=== PATIENT | male | born 1965 | race Caucasian/White ===

== ENCOUNTER 2018-10-08 18:39 | Inpatient (IN) | payer OTHER ==
[2018-10-08] MEDS ORDERED: SODIUM CHLORIDE 0.9% 1,000 ML IV STA (18:53)
[2018-10-08] MEDS ORDERED: HEPARIN SODIUM,PORCINE 10,000 UNIT/ML 1 ML VIAL IV ONE (18:54)
[2018-10-08] MEDS ORDERED: HEPARIN SODIUM,PORCINE 5,000 UNIT/ML 1 ML VIAL IV PRN (18:54)
[2018-10-08 19:05] LABS: Basophils # (A) 0.1 k/uL (0-0.2); Basophils % (A) 1 %; Eosinophils # (A) 0.6 k/uL (0-0.7); Eosinophils % (A) 5 %; HCT 43.4 % (39.0-53.0); Lymphocytes % (A) 25 %; MCH 31.7 pg (25.0-35.0); MCHC 34.5 g/dL (31.0-37.0); MCV 91.7 fL (80.0-100.0); Mean Platelet Volume 7.3; Monocytes # (A) 0.9 k/uL (0-1.0); Monocytes % (A) 8 %; Neutrophils % (A) 59 %; Platelet Count 242 k/uL (150-450); RBC 4.74 m/uL (4.30-5.90); RDW 12.4 % (11.5-15.5)
--- NOTE | 2018-10-08 19:07 | ED ---
General Adult HPI - General Chief complaint: Chest Pain Stated complaint: stemi Time Seen by Provider: 10/08/18 18:41 Source: patient Mode of arrival: EMS Limitations: no limitations - History of Present Illness Initial comments: Dictation was produced using [email or web address] dictation software. please excuse any grammatical, word or spelling errors. Chief Complaint: 53-year-old male presents with episode of syncope. History of Present Illness: Patient's 53-year-old male. He experienced an episode of syncope. Over the last week patient had had chest pain. He took Vicodin to manage his chest pain. Patient states he notices he injures himself at work frequently. Reports that today he was working. 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 He had gone back to the house and felt slightly dizzy then syncopized. EMS was called patient was transferred to the emergency department. EMS reports that he had low blood pressure 54/30 initially. He did improve while en route. Patient has any history of medical problems. Currently he feels except limits. EMS for multiple EKGs showing diffuse ST depressions. Patient reports he had 3 beers yesterday after not drinking for approximately one year The ROS documented in this emergency department record has been reviewed and confirmed by me. Those systems with pertinent positive or negative responses have been documented in the HPI. All other systems are other negative and/or noncontributory. PHYSICAL EXAM: General Impression: Alert and oriented x3, not in acute distress HEENT: Normocephalic atraumatic, extra-ocular movements intact, pupils equal and reactive to light bilaterally, dry mucous membranes, pale Cardiovascular: Heart regular rate and rhythm, S1&S2 audible, no murmurs, rubs or gallops Chest: Lungs clear to auscultation bilaterally, no rhonchi, no wheeze, no rales Abdomen: Bowel sounds present, abdomen soft, non-tender, non-distended, no organomegaly Musculoskeletal: Pulses present and equal in all extremities, no peripheral edema Motor: Power 5/5 bilaterally, no focal deficits noted Neurological: CN II-XII grossly intact, no focal motor or sensory deficits noted Skin: Intact with no visualized rashes Psych: Normal affect and mood ED course: 53-year-old male presents with episode of syncope after approximately 1 chest pain. Vital signs upon arrival shows blood pressure 94/84 , pulse vital signs within acceptable limits. Laboratory evaluation obtained. Leukocytosis of 12.0. Coag panel unremarkable. D-dimer is negative. Metabolic panel is unremarkable. Cardiac enzymes are negative. Chest x-ray is negative for an acute processes. Patient started on heparin. Patient reevaluated no changes in his symptoms. Patient given 1 dose of aspirin. Patient symptoms likely secondary to vasovagal syncope however given abnormal EKG, and onset A. fib and ST depressions there is concern of significant cardiac disease. Patient given intravenous fluids. Patient be admitted EKG interpretation: Ventricular rate 89, H or fibrillation, QRS 88, QTc 469. No IN prolongation, no QTC prolongation, ST segment depressions in the lateral precordial leads and aVL - Related Data Home Medications Medication Instructions Recorded Confirmed No Known Home Medications 10/08/18 10/08/18 Allergies Allergy/AdvReac Type Severity Reaction Status Date / Time No Known Allergies Allergy Unverified 10/08/18 19:00 Review of Systems ROS Statement: Those systems with pertinent positive or pertinent negative responses have been documented in the HPI. ROS Other: All systems not noted in ROS Statement are negative. 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 ] Respiratory 18 16 Rate Blood Pressure 94/84 108/81 O2 Sat by Pulse 98 Oximetry Medical Decision Making - Lab Data Result diagrams: 10/08/18 18:43 10/08/18 18:43 Lab Results 10/08/18 10/08/18 10/08/18 Range/Units 18:43 18:43 18:43 WBC 12.0 H (3.8-10.6) k/uL RBC 4.74 (4.30-5.90) m/uL Hgb 15.0 (13.0-17.5) gm/dL Hct 43.4 (39.0-53.0) % MCV 91.7 (80.0-100.0) fL MCH 31.7 (25.0-35.0) pg MCHC 34.5 (31.0-37.0) g/dL RDW 12.4 (11.5-15.5) % Plt Count 242 (150-450) k/uL Neutrophils % 59 % Lymphocytes % 25 % Monocytes % 8 % Eosinophils % 5 % Basophils % 1 % Neutrophils # 7.0 (1.3-7.7) k/uL Lymphocytes # 3.0 (1.0-4.8) k/uL Monocytes # 0.9 (0-1.0) k/uL Eosinophils # 0.6 (0-0.7) k/uL Basophils # 0.1 (0-0.2) k/uL PT (9.0-12.0) sec INR (<1.2) APTT (22.0-30.0) sec D-Dimer (<0.60) mg/L FEU Sodium 139 (137-145) mmol/L Potassium 4.5 (3.5-5.1) mmol/L Chloride 106 (98-107) mmol/L Carbon Dioxide 24 (22-30) mmol/L Anion Gap 9 mmol/L BUN 20 (9-20) mg/dL Creatinine 1.23 (0.66-1.25) mg/dL Est GFR (CKD-EPI)AfAm 77 (>60 ml/min/1.73 sqM) Est GFR (CKD-EPI)NonAf 67 (>60 ml/min/1.73 sqM) Glucose 133 H (74-99) mg/dL Calcium 8.7 (8.4-10.2) mg/dL Magnesium 1.7 (1.6-2.3) mg/dL Total Bilirubin 0.6 (0.2-1.3) mg/dL AST 24 (17-59) U/L ALT 33 (21-72) U/L Alkaline Phosphatase 84 (38-126) U/L Total Creatine Kinase 61 (55-170) U/L CK-MB (CK-2) 0.9 (0.0-2.4) ng/mL CK-MB (CK-2) Rel Index 1.5 Troponin I <0.012 (0.000-0.034) ng/mL Total Protein 6.2 L (6.3-8.2) g/dL Albumin 3.5 (3.5-5.0) g/dL TSH 2.170 (0.465-4.680) mIU/L 10/08/18 Range/Units 18:43 WBC (3.8-10.6) k/uL RBC (4.30-5.90) m/uL Hgb (13.0-17.5) gm/dL Hct (39.0-53.0) % MCV (80.0-100.0) fL MCH (25.0-35.0) pg MCHC (31.0-37.0) g/dL RDW (11.5-15.5) % Plt Count (150-450) k/uL Neutrophils % % Lymphocytes % % Monocytes % % Eosinophils % % Basophils % % Neutrophils # (1.3-7.7) k/uL Lymphocytes # (1.0-4.8) k/uL Monocytes # (0-1.0) k/uL Eosinophils # (0-0.7) k/uL Basophils # (0-0.2) k/uL PT 10.1 (9.0-12.0) sec INR 0.9 (<1.2) APTT 24.4 (22.0-30.0) sec D-Dimer 0.34 (<0.60) mg/L FEU Sodium (137-145) mmol/L Potassium (3.5-5.1) mmol/L Chloride (98-107) mmol/L Carbon Dioxide (22-30) mmol/L Anion Gap mmol/L BUN (9-20) mg/dL Creatinine (0.66-1.25) mg/dL Est GFR (CKD-EPI)AfAm (>60 ml/min/1.73 sqM) Est GFR (CKD-EPI)NonAf (>60 ml/min/1.73 sqM) Glucose (74-99) mg/dL Calcium (8.4-10.2) mg/dL Magnesium (1.6-2.3) mg/dL Total Bilirubin (0.2-1.3) mg/dL AST (17-59) U/L ALT (21-72) U/L Alkaline Phosphatase (38-126) U/L Total Creatine Kinase (55-170) U/L CK-MB (CK-2) (0.0-2.4) ng/mL CK-MB (CK-2) Rel Index Troponin I (0.000-0.034) ng/mL Total Protein (6.3-8.2) g/dL Albumin (3.5-5.0) g/dL TSH (0.465-4.680) mIU/L Disposition Clinical Impression: Syncope, EKG abnormalities Disposition: ADMITTED IP TO THIS [facility] Condition: Fair Referrals: None,Stated [Primary Care Provider] - 1-2 days Decision Time: 20:15
[2018-10-08 19:20] LABS: Albumin 3.5 g/dL (3.5-5.0); Calcium 8.7 mg/dL (8.4-10.2); Magnesium 1.7 mg/dL (1.6-2.3); Potassium 4.5 mmol/L (3.5-5.1); Total Bilirubin 0.6 mg/dL (0.2-1.3); Total Protein 6.2 g/dL (6.3-8.2)
[2018-10-08 19:22] LABS: D-Dimer 0.34 mg/L FEU (<0.60); INR 0.9 (<1.2); Partial Thromboplastin Time 24.4 sec (22.0-30.0); Prothrombin Time 10.1 sec (9.0-12.0)
[2018-10-08 19:25] LABS: Creatine Kinase 61 U/L (55-170)
[2018-10-08] MEDS: HEPARIN SOD,PORK IN 0.45% NACL 25,000 UNIT in 0.45% NACL 1 250ML.BAG IV SCH (19:34)
[2018-10-08 19:37] LABS: Creatine Kinase MB 0.9 ng/mL (0.0-2.4); Troponin I <0.012 ng/mL (0.000-0.034)
--- NOTE | 2018-10-08 19:44 | XR ---
EXAMINATION TYPE: XR chest 2V DATE OF EXAM: 10/08/2018 COMPARISON: NONE HISTORY: Chest pain TECHNIQUE: Frontal and lateral views of the chest are obtained. FINDINGS: There is no heart failure nor confluent pneumonic infiltrate. Costophrenic angles are tiburcio r. Heart size is normal. There are chest leads. There is slight 20% anterior wedging of a midthoracic vertebra. There is slight coarsening of the lung markings. IMPRESSION: Slight coarsening of the lung markings could relate to mild fibrosis. Normal heart.
[2018-10-08] MEDS ORDERED: ASPIRIN 81 MG PO STA (20:03)
[2018-10-08] MEDS ORDERED: ONDANSETRON 4 MG/2 ML VIAL IVP PRN (20:06)
[2018-10-08] MEDS ORDERED: ACETAMINOPHEN TAB 325 MG TAB PO PRN (20:06)
[2018-10-08] MEDS ORDERED: NALOXONE 0.4 MG/ML 1 ML VIAL IV PRN (20:06)
[2018-10-08 21:40] VITALS: BMI 25.1
--- NOTE | 2018-10-08 22:23 | P.HPIM ---
History of Present Illness H&P Date: 10/08/18 The patient is a 53-year-old male with no known PMH who presented to the ED for shortness of breath, chest pain, and syncope. The patient notes that over the past few weeks to months, he has noticed gradually worsening shortness of breath and decreased exercise tolerance. Earlier today, he was changing the tire on his car when he began feeling lightheaded and became diaphoretic and short of breath. He struggled to make it back into his house where he then collapsed on the floor, witnessed by his girlfriend, downtime of roughly 30 seconds. The girlfriend at the bedside denied noticing any abnormal shaking movements, or urinary or bowel incontinence. EMS was activated, and the patient had a BP of 54/30 which improved to 94/84 upon arrival to the ED. Patient notes that his symptoms gradually improved upon arrival to the ED and at time of the interview the patient felt that he was almost back to his baseline. He also endorsed having episodes of noticeable tachycardia which would spontaneously resolve over the past few months. He denied chest pain, fever, chills, lower extremity edema, or calf pain. He also denied weakness, numbness , tingling. The patient has not seen a physician in over 30 years and thereby has no known past medical history. In the emergency room, the patient's vitals were BP 108/81, pulse 92, respirations 16, SpO2 98% on 2 L via nasal cannula. The patient underwent a comprehensive workup with EKG showing atrial fibrillation at [address] depressions and T-wave inversion in leads V4 to V6. WBC count was 12, with troponin less than 0.012, creatinine 1.23, and chest x-ray showing mild fibrosis. Review of Systems Pertinent positives and negatives as discussed in HPI, a complete review of systems was performed and all other systems are negative. Past Medical History Additional Past Medical History / Comment(s): chronic back and neck pain History of Any Multi-Drug Resistant Organisms: None Reported Additional Past Surgical History / Comment(s): cosmetic surg Smoking Status: Current some day smoker Past Alcohol Use History: Occasional Past Drug Use History: None Reported - Past Family History Father Family Medical History: Congestive Heart Failure (CHF) Additional Family Medical History / Comment(s): HF FATHER STILL ALIVE Mother Family Medical History: COPD Medications and Allergies Home Medications Medication Instructions Recorded Confirmed Type No Known Home Medications 10/08/18 10/08/18 History Allergies Allergy/AdvReac Type Severity Reaction Status Date / Time No Known Allergies Allergy Unverified 10/08/18 19:00 Physical Exam Vitals: Vital Signs Pulse Pulse Resp BP Pulse Ox 10/08/18 20:25 75 16 116/71 99 10/08/18 19:39 92 16 108/81 98 10/08/18 18:57 80 10/08/18 18:40 89 18 94/84 Intake and Output 10/08/18 10/08/18 10/08/18 06:59 14:59 22:59 Other: Weight 62.142 kg General: non toxic, no distress, appears at stated age, normal weight Derm: no unusual rashes/lesions no unusual ecchymoses, warm, dry Head: atraumatic, normocephalic, symmetric Eyes: EOMI, no lid lag, anicteric sclera, pupils equal round reactive to light ENT: Nose and ears atraumatic, no thrush, no pharyngeal erythema, no tongue bites Neck: No thyromegaly, no cervical lymphadenopathy, trachea midline, supple Mouth: no lip lesion, mucus membranes moist Cardiovascular: S1S2 reg, grade 4 holosystolic murmur appreciated, positive posterior tibial pulse bilateral, no edema, capillary refill less than 2 seconds Lungs: Mild bibasilar rales, no rhonchi, no accessory muscle use Abdominal: soft, nontender to palpation, no guarding, no appreciable organomegaly, normal bowel sounds Ext: no gross muscle atrophy, muscle strength 5 out of 5 in all 4 extremities grossly, no contractures, Neuro: CN II-XI grossly intact, light touch intact all 4 extremities, finger to nose within normal limits, Psych: Alert, oriented, appropriate affect Results CBC & Chem 7: 10/08/18 18:43 10/08/18 18:43 Labs: Abnormal Lab Results - Last 24 Hours (Table) 10/08/18 10/08/18 Range/Units 18:43 18:43 WBC 12.0 H (3.8-10.6) k/uL Glucose 133 H (74-99) mg/dL Total Protein 6.2 L (6.3-8.2) g/dL Assessment and Plan Plan: Syncope, in setting of newly diagnosed A. fib, Abnormal EKG, and holosystolic murmur -Possibly secondary to A. fib with RVR versus arrhythmia -Cardiac monitoring -Cardiology consult -Echocardiogram -Low suspicion for seizure -Heparin infusion -Check lipid panel and A1c -Fall, seizure, aspiration precautions -Continue with aspirin -Check TSH Kidney injury, unspecified -Monitor BMP Leukocytosis -Likely reactive -Monitor CBC DVT//GI prophylaxis -Heparin infusion -No indication for GI prophylaxis The patient is admitted with an anticipated greater than 2 midnight stay for evaluation of Afib CODE STATUS: Full Code Discussed with: Patient Anticipated discharge date: 10/10/[address]: Home A total of 60 minutes was spent on the care of this complex patient more than 50 % of the time was spent in counseling and care coordination.
[2018-10-09] MEDS: FAMOTIDINE 20 MG TAB PO SCH ×3 (00:13→22:41)
[2018-10-09] MEDS: SODIUM CHLORIDE 0.9% 1,000 ML IV SCH ×2 (00:14→08:48)
[2018-10-09 02:05] LABS: Creatine Kinase MB 7.6 ng/mL (0.0-2.4)
[2018-10-09 02:13] LABS: Troponin I 3.9 ng/mL (0.000-0.034)
[2018-10-09 04:23] LABS: HCT 40.9 % (39.0-53.0); HGB 14.1 gm/dL (13.0-17.5); MCHC 34.5 g/dL (31.0-37.0); MCV 92.7 fL (80.0-100.0); Mean Platelet Volume 6.9; Platelet Count 213 k/uL (150-450); RBC 4.41 m/uL (4.30-5.90); RDW 12.3 % (11.5-15.5); WBC 10.5 k/uL (3.8-10.6)
[2018-10-09 05:00] LABS: Anion Gap 3 mmol/L; Blood Urea Nitrogen 17 mg/dL (9-20); Calcium 8.5 mg/dL (8.4-10.2); Carbon Dioxide 22 mmol/L (22-30); Chloride 113 mmol/L (98-107); Cholesterol 127 mg/dL (<200); Glucose 94 mg/dL (74-99); HDL Cholesterol 32 mg/dL (40-60); LDL Cholesterol,Calculated 74 mg/dL (0-99); Potassium 4.2 mmol/L (3.5-5.1); Sodium 138 mmol/L (137-145); Triglycerides 103 mg/dL (<150)
[2018-10-09 07:23] LABS: Creatine Kinase MB 10.1 ng/mL (0.0-2.4)
[2018-10-09 07:25] LABS: Troponin I 1.86 ng/mL (0.000-0.034)
[2018-10-09] MEDS: ASPIRIN 325 MG TAB PO SCH (08:48)
--- NOTE | 2018-10-09 12:20 | P.CRDCN ---
History of Present Illness Consult date: 10/09/18 Requesting physician: Charlotte Martinez Consult reason: sycope Chief complaint: Syncope History of present illness: This is a pleasant 53-year-old gentleman with no prior documented history of hypertension, no diabetes, no hyperlipidemia, positive nicotine dependence, rare EtOH, no significant family history of premature coronary artery disease. 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 He denies any chest pressure or chest discomfort. He does feel that his exercise tolerance has decreased recently. Patient was outside to try to fix a tire on his car, he states he became lightheaded and somewhat diaphoretic. He did have some mild difficulty in breathing. He struggled to make it back into the house, where he ultimately walked into the house and collapsed on the floor. According to the girlfriend he was down for approximately 30 seconds. He did not lose bowel or bladder function. Upon wakening, he was quite diaphoretic and clammy. He did know where he was when he awoke. On EMS arrival, patient had a blood pressure of 54/30 which improved to 94/80 on arrival to the emergency room. Chest x-ray on presentation here revealed slight coarsening of the lung markings which could relate to mild fibrosis. His initial EKG on presentation here showed a sinus arrhythmia with lateral T-wave inversion. Past Medical History Additional Past Medical History / Comment(s): chronic back and neck pain History of Any Multi-Drug Resistant Organisms: None Reported Additional Past Surgical History / Comment(s): cosmetic surg Past Anesthesia/Blood Transfusion Reactions: No Reported Reaction Smoking Status: Current some day smoker Past Alcohol Use History: Occasional Past Drug Use History: None Reported - Past Family History Father Family Medical History: Congestive Heart Failure (CHF) Additional Family Medical History / Comment(s): HF FATHER STILL ALIVE Mother Family Medical History: COPD Medications and Allergies Home Medications Medication Instructions Recorded Confirmed Type No Known Home Medications 10/08/18 10/08/18 History Allergies Allergy/AdvReac Type Severity Reaction Status Date / Time No Known Allergies Allergy Unverified 10/08/18 19:00 Physical Exam Vitals: Vital Signs Temp Pulse Pulse Resp BP BP Pulse Ox 10/09/18 11:30 97.7 F 64 16 117/71 97 10/09/18 07:52 97.6 F 65 16 105/62 98 10/09/18 04:31 98.0 F 67 18 100/60 95 10/09/18 04:24 67 18 10/09/18 00:00 97.8 F 60 18 94/51 94 L 10/08/18 23:47 98.0 F 83 18 106/66 95 10/08/18 21:15 98.0 F 83 18 106/66 95 10/08/18 20:25 75 16 116/71 99 10/08/18 19:39 92 16 108/81 98 10/08/18 18:57 80 10/08/18 18:40 89 18 94/84 Intake and Output 10/08/18 10/09/18 10/09/18 22:59 06:59 14:59 Intake Total 97.08 320 Output Total 175 500 Balance -77.92 -180 Intake: Intake, IV Titration 97.08 320 Amount Heparin Sod,Pork in 0.45% 97.08 NaCl 25,000 unit In 0.45 % NaCl 1 250ml.bag @ 18 UNITS/KG/HR 11.18 mls/hr IV .[id number] [facility] Rx#: [id number] Sodium Chloride 0.9% 1, 320 000 ml @ 80 mls/hr IV . [id number] [facility] Rx#:[id number] Output: Urine 175 500 Other: # Voids 1 1 1 # Bowel Movements 1 Weight 62.142 kg 64.2 kg PHYSICAL EXAMINATION: GENERAL: 53-year-old gentleman in no acute distress at the time of my examination HEENT: Head is atraumatic, normocephalic. Pupils equal, round. Sclera anicteric. Conjunctiva are clear. Mucous membranes of the mouth are moist. Neck is supple. There is no elevated jugular venous pressure. No carotid bruit is heard. HEART EXAMINATION: Heart S1 no S2 audible, systolic ejection murmur in the aortic area. CHEST EXAMINATION: Lungs reveal rales to bilateral bases. ABDOMEN: Soft, nontender. Bowel sounds are heard. No organomegaly noted. EXTREMITIES: 2+ peripheral pulses with no evidence of peripheral edema and no calf tenderness noted. NEUROLOGIC patient is awake, alert and oriented 3 . . Results 10/09/18 04:06 10/09/18 04:06 Cardiac Enzymes 10/08/18 10/08/18 10/09/18 Range/Units 18:43 18:43 00:13 AST 24 (17-59) U/L CK-MB (CK-2) 0.9 7.6 H (0.0-2.4) ng/mL Troponin I <0.012 3.900 H* (0.000-0.034) ng/mL 10/09/18 Range/Units 06:35 AST (17-59) U/L CK-MB (CK-2) 10.1 H (0.0-2.4) ng/mL Troponin I 1.860 H* (0.000-0.034) ng/mL Coagulation 10/08/18 10/09/18 Range/Units 18:43 04:06 PT 10.1 (9.0-12.0) sec APTT 24.4 63.5 H (22.0-30.0) sec Lipids 10/09/18 Range/Units 04:06 Triglycerides 103 (<150) mg/dL Cholesterol 127 (<200) mg/dL HDL Cholesterol 32 L (40-60) mg/dL CBC 10/08/18 10/09/18 Range/Units 18:43 04:06 WBC 12.0 H 10.5 (3.8-10.6) k/uL RBC 4.74 4.41 (4.30-5.90) m/uL Hgb 15.0 14.1 (13.0-17.5) gm/dL Hct 43.4 40.9 (39.0-53.0) % Plt Count 242 213 (150-450) k/uL Comprehensive Metabolic Panel 10/08/18 10/09/18 Range/Units 18:43 04:06 Sodium 139 138 (137-145) mmol/L Potassium 4.5 4.2 (3.5-5.1) mmol/L Chloride 106 113 H (98-107) mmol/L Carbon Dioxide 24 22 (22-30) mmol/L BUN 20 17 (9-20) mg/dL Creatinine 1.23 0.84 (0.66-1.25) mg/dL Glucose 133 H 94 (74-99) mg/dL Calcium 8.7 8.5 (8.4-10.2) mg/dL AST 24 (17-59) U/L ALT 33 (21-72) U/L Alkaline Phosphatase 84 (38-126) U/L Total Protein 6.2 L (6.3-8.2) g/dL Albumin 3.5 (3.5-5.0) g/dL Current Medications Generic Name Dose Route Start Last Admin Trade Name Freq PRN Reason Stop Dose Admin Acetaminophen 650 mg 10/08/18 20:06 Tylenol Tab PO Q6HR PRN Mild Pain or Fever > 100.5 Aspirin 325 mg 10/09/18 09:00 10/09/18 08:48 Aspirin PO 325 mg DAILY [facility] Administration Famotidine 20 mg 10/08/18 21:00 10/09/18 08:48 Pepcid PO 20 mg BID [facility]ICK Administration Heparin Sodium (Porcine) 0 unit 10/08/18 18:54 10/08/18 19:33 Heparin IV 4,971 unit PER PROTOCOL PRN Administration Low PTT Protocol Heparin Sodium/Sodium Chloride 250 mls @ 11.18 mls/hr 10/08/18 19:00 04:15 25,000 unit/ Sodium Chloride IV 17.99 units/kg/hr .[id number] [facility] 11.18 mls/hr Titration Protocol 18 UNITS/KG/HR Sodium Chloride 1,000 mls @ 80 mls/hr 10/08/18 20:15 10/09/18 08:48 Saline 0.9% IV 80 mls/hr .[id number] [facility] Administration Naloxone HCl 0.2 mg 10/08/18 20:06 Narcan IV Q2M PRN Opioid Reversal Ondansetron HCl 4 mg 10/08/18 20:06 Zofran IVP Q8HR PRN Nausea And Vomiting Intake and Output 10/08/18 10/09/18 10/09/18 22:59 06:59 14:59 Intake Total 97.08 320 Output Total 175 500 Balance -77.92 -180 Intake: Intake, IV Titration 97.08 320 Amount Heparin Sod,Pork in 0.45% 97.08 NaCl 25,000 unit In 0.45 % NaCl 1 250ml.bag @ 18 UNITS/KG/HR 11.18 mls/hr IV .[id number] [facility] Rx#: [id number] Sodium Chloride 0.9% 1, 320 000 ml @ 80 mls/hr IV . [id number] [facility] Rx#:[id number] Output: Urine 175 500 Other: # Voids 1 1 1 # Bowel Movements 1 Weight 62.142 kg 64.2 kg 10/09/18 04:06 10/09/18 04:06 EKG Interpretations (text) Initial EKG shows a sinus arrhythmia. Lateral T-wave inversion. Assessment and Plan Plan: Assessment and plan #1 syncope, rule out cardiac causes. Patient has a notable aortic systolic murmur, rule out severe aortic stenosis #2 abnormal troponins 012, 3.9, 1.8. Possible acute coronary syndrome, could be secondary to severe aortic stenosis. #3 no prior documented history of hypertension, no diabetes, no hyperlipidemia #4 nicotine dependence #5 symptoms of shortness of breath and dizziness. Plan We will obtain an echocardiogram with Doppler study to assess the LV function as well as a possible severe aortic stenosis.. We will also check a BNP level. Patient has been instructed that he may need to undergo cardiac catheterization to rule out underlying coronary artery disease. Further recommendations to follow. DNP note has been reviewed, I agree with a documented findings and plan of care. Patient was seen and examined.
[2018-10-09 13:31] LABS: Hemoglobin A1C 4.8 % (4.0-6.0)
--- NOTE | 2018-10-09 14:02 | ECHOF ---
Referral Reason:Syncope MEASUREMENTS -------- HEIGHT: 162.6 cm WEIGHT: 62.1 kg BP: 100/60 RVIDd: 2.9 cm (< 3.3) IVSd: 1.4 cm (0.6 - 1.1) LVIDd: 3.6 cm (3.9 - 5.3) LVPWd: 1.4 cm (0.6 - 1.1) IVSs: 1.6 cm LVIDs: 2.4 cm LVPWs: 1.6 cm LAESV Index (A-L): 27.00 ml/m Ao Diam: 2.2 cm (2.0 - 3.7) AV Cusp: 0.6 cm (1.5 - 2.6) LA Diam: 3.5 cm (2.7 - 3.8) MV E Franco: 1.14 m/s MV DecT: 211 ms MV A Franco: 0.52 m/s MV E/A Ratio: 2.17 AV maxP.22 mmHg AV meanP.95 mmHg AR PHT: 422 ms RAP: 5.00 mmHg RVSP: 25.53 mmHg MV EF SLOPE: 98.73 mm/s (70 - 150) MV EXCURSION: 1.46 cm (> 18.000) FINDINGS -------- Sinus rhythm. This was a technically good study. The left ventricular size is normal. There is moderate concentric left ventricular hypertrophy. O verall left ventricular systolic function is normal with, an EF between 55 - 60 %. The right ventricle is normal in size and function. Normal LA size by volume 22+/-6 ml/m2. The right atrium is normal in size. There is severe aortic valve sclerosis. There is moderate aortic regurgitation. There is severe a ortic stenosis present. Peak/mean gradient across the Aortic Valve is 105.22mmHg / 69.95mmHg. The mitral valve leaflets are mildly thickened. Mild mitral regurgitation is present. Trace tricuspid regurgitation present. Right ventricular systolic pressure is normal at < 35 mmHg. There is no evidence of pulmonary hypertension. The pulmonic valve is normal. The aortic root size is normal. Normal inferior vena cava with normal inspiratory collapse consistent with estimated right atrial pre ssure of 5 mmHg. There is no pericardial effusion. CONCLUSIONS -------- 1. Sinus rhythm. 2. This was a technically good study. 3. The left ventricular size is normal. 4. There is moderate concentric left ventricular hypertrophy. 5. Overall left ventricular systolic function is normal with, an EF between 55 - 60 %. 6. Normal LA size by volume 22+/-6 ml/m2. 7. There is severe aortic valve sclerosis. 8. There is moderate aortic regurgitation. 9. There is severe aortic stenosis present. 10. Peak/mean gradient across the Aortic Valve is 105.22mmHg / 69.95mmHg. 11. The mitral valve leaflets are mildly thickened. 12. Mild mitral regurgitation is present. 13. Trace tricuspid regurgitation present. 14. Right ventricular systolic pressure is normal at < 35 mmHg. 15. There is no evidence of pulmonary hypertension. 16. The aortic root size is normal. 17. There is no pericardial effusion. ELIGIBILITY TECHNICIAN: Tyron Lopez RDCS
--- NOTE | 2018-10-09 15:12 | P.PN ---
Subjective Progress Note Date: 10/09/18 Principal diagnosis: Syncopal episode, severe aortic stenosis, troponin elevation Patient was seen and examined. No acute events overnight. Patient denies any chest pain, shortness of breath, dizziness or palpitations. He does report easy fatigability. Patient reports that his symptoms have been ongoing for the past 2 months. He denies any history of rheumatic fever or endocarditis. Objective - Vital Signs Vital signs: Vital Signs Temp 97.7 F 10/09/18 11:30 Pulse 64 10/09/18 11:30 Resp 16 10/09/18 11:30 BP 117/71 10/09/18 11:30 Pulse Ox 97 10/09/18 11:30 Intake & Output 10/08/18 10/09/18 10/09/18 18:59 06:59 18:59 Intake Total 97.08 320 Output Total 175 500 Balance -77.92 -180 Weight 62.142 kg 64.2 kg Intake: Intake, IV Titration 97.08 320 Amount Heparin Sod,Pork in 0.45% 97.08 NaCl 25,000 unit In 0.45 % NaCl 1 250ml.bag @ 18 UNITS/KG/HR 11.18 mls/hr IV .[id number] YANNICK Rx#: [id number] Sodium Chloride 0.9% 1, 320 000 ml @ 80 mls/hr IV . [id number] YANNICK Rx#:[id number] Output: Urine 175 500 Other: # Voids 1 1 # Bowel Movements 1 - Exam General: [non toxic], [no distress], [appears at stated age] Derm: [warm], [dry] Head: [atraumatic], [normocephalic], [symmetric] Eyes: [EOMI], [no lid lag], [anicteric sclera] Mouth: [no lip lesion], [mucus membranes moist] Cardiovascular: [S1S2 reg], [systolic murmur], [positive DP pulse bilateral] Lungs: [CTA bilateral], [no rhonchi, no rales] , [no accessory muscle use] Abdominal: [soft], [ nontender to palpation], [no guarding], [no appreciable organomegaly] Ext: [no gross muscle atrophy], [no edema], [no contractures] Neuro: [no focal neuro deficits] Psych: [Alert], [oriented], [appropriate affect] - Labs CBC & Chem 7: 10/09/18 04:06 10/09/18 04:06 Labs: Abnormal Lab Results - Last 24 Hours (Table) 10/08/18 10/08/18 10/09/18 Range/Units 18:43 18:43 00:13 WBC 12.0 H (3.8-10.6) k/uL APTT (22.0-30.0) sec Chloride (98-107) mmol/L Glucose 133 H (74-99) mg/dL CK-MB (CK-2) 7.6 H (0.0-2.4) ng/mL Troponin I 3.900 H* (0.000-0.034) ng/mL Total Protein 6.2 L (6.3-8.2) g/dL HDL Cholesterol (40-60) mg/dL 10/09/18 10/09/18 10/09/18 Range/Units 04:06 04:06 06:35 WBC (3.8-10.6) k/uL APTT 63.5 H (22.0-30.0) sec Chloride 113 H (98-107) mmol/L Glucose (74-99) mg/dL CK-MB (CK-2) 10.1 H (0.0-2.4) ng/mL Troponin I 1.860 H* (0.000-0.034) ng/mL Total Protein (6.3-8.2) g/dL HDL Cholesterol 32 L (40-60) mg/dL Assessment and Plan Assessment: Assessment and Plan 1. Syncopal episode 2. Severe aortic stenosis 3. Troponin elevation 4. DVT and GI prophylaxis 1. Likely secondary to severe aortic stenosis. Rule out acute coronary syndrome, orthostasis, arrhythmia induced. Low suspicion for seizures. Troponin is less than 0.012, 3.90, 1.86 with EKG showing sinus arrhythmia. Plans for coronary catheterization tomorrow as per cardiology, continue heparin drip. Echocardiogram shows normal EF with severe aortic stenosis. Will obtain orthostats. Telemetry monitoring. Fall precautions. Advanced neurochecks. Seizure precautions. Will follow cardiology recommendations. 2. As seen on echocardiogram. Plans for ALVARO as per cardiology tomorrow. Will likely need cardiothoracic consultation. 3. Troponin is less than 0.012, 3.90, 1.86 with EKG showing sinus arrhythmia. Could be related to hypotensive episode. Plans for cardiac catheterization tomorrow. Continue heparin drip. Continue aspirin 325 mg by mouth daily, Lipitor 40 mg by mouth at bedtime. Telemetry monitoring. Will follow cardiology recommendations. 4. Heparin drip. Patient admitted for syncopal episode. Found to have elevated troponins and severe aortic stenosis. Plans for ALVARO and cardiac catheterization tomorrow. Will follow cardiology recommendations.
[2018-10-09] MEDS ORDERED: ASPIRIN 325 MG TAB PO STA (16:06)
[2018-10-09] MEDS ORDERED: ATORVASTATIN 80 MG TAB PO STA (16:06)
[2018-10-09] MEDS ORDERED: NITROGLYCERIN SL TABS 0.4 MG TAB SUBLINGUAL PRN (16:06)
[2018-10-09] MEDS ORDERED: ALPRAZolam 0.25 MG TAB PO PRN (16:06)
[2018-10-09] MEDS ORDERED: SODIUM CHLORIDE 0.9% 1,000 ML in EMPTY BAG 1 BAG IV ONE (16:06)
[2018-10-09] MEDS: HEPARIN SOD,PORK IN 0.45% NACL 25,000 UNIT in 0.45% NACL 1 250ML.BAG IV SCH (17:53)
[2018-10-09] MEDS: ATORVASTATIN 40 MG TAB PO SCH (22:41)
[2018-10-10] MEDS: ASPIRIN 325 MG TAB PO SCH (06:27)
[2018-10-10] MEDS: FAMOTIDINE 20 MG TAB PO SCH ×2 (06:28→19:51)
[2018-10-10] MEDS ORDERED: IV FLUID CONTINUATION 200 ML IV ONE (12:48)
[2018-10-10] MEDS: BENZOCAINE SPRAY 1 CAN MUCOUS MEM ONE ×2 (13:00→13:01)
[2018-10-10] MEDS: fentaNYL (PF) 50 MCG/ML 2 ML AMP IVP ONE ×2 (13:01→13:41)
[2018-10-10] MEDS ORDERED: MIDAZOLAM 2 MG/2 ML VIAL IVP ONE ×3 (13:01→13:41)
[2018-10-10] MEDS ORDERED: LIDOCAINE 1% INJ 10MG/ML (20 ML MDV) SQ ONE (13:41)
[2018-10-10] MEDS ORDERED: SODIUM CHLORIDE 0.9% 500 ML 500 ML IV ONE (13:42)
[2018-10-10 14:08] LABS: O2 Sat Blood Gas 76.9 %
[2018-10-10 14:13] LABS: O2 Sat Blood Gas 69.9 %
[2018-10-10 14:16] LABS: O2 Sat Blood Gas 94.7 %
[2018-10-10] MEDS ORDERED: IOPAMIDOL-370 150ML BTL INJ ONE (14:16)
--- NOTE | 2018-10-10 14:43 | EST ---
EXERCISE STRESS Patient was given intravenous sedation with Versed and fentanyl and transesophageal echocardiogram was performed without any complications. Left ventricular chamber is normal in size. There is evidence of left ventricular hypertrophy with normal left ventricular systolic function. Aortic valve is calcified with diminished leaflet discussion. Aortic valve area calculated is 0.9 cm2. It appears to be bicuspid aortic valve. Ascending aorta is normal in size. Mitral and tricuspid valve morphology is normal. There is a mild mitral regurgitation is noted. There is no evidence of thrombus in left atrial appendage. Interatrial septum is intact. There is no evidence of any PFO. FINAL IMPRESSION: 1. This study reveals a calcified aortic valve with severe degree of aortic valve stenosis. Aortic valve area calculated is 0.9 cm2. There is a mild to moderate aortic regurgitation is noted. Aortic wall appears to be bicuspid. 2. Left ventricular systolic function is normal. 3. There is a mild mitral regurgitation. MMODL / IJN: [id number] /
--- NOTE | 2018-10-10 17:23 | P.GSCN ---
History of Present Illness Consult date: 10/10/18 Reason for Consult: Severe aortic stenosis Requesting physician: Evens Serrano History of present illness: This is a 53-year-old very active gentleman who does not follow with a primary care physician on a regular basis. He has no previous medical history other than current tobacco dependence, however he does not follow with any physician on a regular basis. Apparently he had been at home and was changing a tire when he began to feel lightheaded, short of breath, and diaphoretic. He made it back into the house where he had a syncopal episode witnessed by his girlfriend. EMS was called, the patient was transported to [facility] emergency room for evaluation and treatment. Upon further questioning the patient does endorse diaphoresis and intermittent shortness of breath over the previous month. He denied chest pain, nausea, fever, chills, sick contacts, or any other symptoms. EMS noted his blood pressure to be 54/30 which improved to 94/84 upon arrival to the emergency room. His blood pressure did continue to improve. EKG was completed demonstrating atrial fibrillation with ST depression in the lateral leads. Chest x-ray was completed demonstrating no acute process. Troponins were drawn, the first being negative, the second 3.9, and the third 1.86. The patient was admitted for evaluation and treatment. A transthoracic echocardiogram was completed demonstrating moderate left ventricular hypertrophy with normal left ventricular systolic function and EF 55 -60%, moderate aortic insufficiency, severe aortic stenosis with peak/mean gradient across aortic valve 105.22 mmHg/69.95 mmHg, mild mitral regurgitation, trace tricuspid regurgitation without pulmonary hypertension. The patient was recommended to undergo heart catheterization and transesophageal echocardiogram which were completed today. The heart catheterization demonstrated no coronary artery disease. Transesophageal echocardiogram demonstrated a bicuspid calcified aortic valve with severe aortic stenosis with a valve area of 0.9 cm , mild to moderate aortic regurgitation, mild mitral regurgitation, and normal left ventricular function. Dr. Gong from cardiothoracic surgery was consulted regarding aortic valve replacement. Review of Systems Review of systems was completed and was negative except as noted. - Cardiovascular Reports as per HPI, Reports lightheadedness, Reports shortness of breath, Reports syncope Past Medical History Additional Past Medical History / Comment(s): chronic back and neck pain History of Any Multi-Drug Resistant Organisms: None Reported Past Surgical History: No Surgical Hx Reported Additional Past Surgical History / Comment(s): cosmetic surg Past Anesthesia/Blood Transfusion Reactions: No Reported Reaction Past Psychological History: No Psychological Hx Reported Smoking Status: Current some day smoker Past Alcohol Use History: Occasional Past Drug Use History: None Reported - Past Family History Father Family Medical History: Congestive Heart Failure (CHF) Additional Family Medical History / Comment(s): HF FATHER STILL ALIVE Mother Family Medical History: COPD Medications and Allergies Home Medications Medication Instructions Recorded Confirmed Type No Known Home Medications 10/08/18 10/08/18 History Allergies Allergy/AdvReac Type Severity Reaction Status Date / Time No Known Allergies Allergy Unverified 10/08/18 19:00 Surgical - Exam Vital Signs Pulse Resp BP 89 18 94/84 10/08/18 18:40 10/08/18 18:40 10/08/18 18:40 - General well developed, well nourished, no distress, no pain - Eyes PERRL, normal ocular movement - ENT no hearing loss, poor retirement - Neck no masses, no bruits, trachea midline - Respiratory Lungs sounds diminished bilaterally. Respirations even, nonlabored. Currently on room air with oxygen saturation 98%. No chest wall deformities. - Cardiovascular S1 present, absent S2, positive systolic murmur. Regular rate and rhythm, sinus rhythm on telemetry. Palpable peripheral pulses bilaterally. No edema present. No calf pain or tenderness noted. No varicosities noted. - Abdomen Abdomen: soft, non tender, bowel sounds - Genitourinary Deferred - Rectum Deferred - Integumentary no rash, no growths, no abnormal pigmentation - Neurologic normal coordination, normal sensation - Musculoskeletal normal posture - Psychiatric oriented to time, oriented to person, oriented to place, speech is normal, memory intact Results - Labs 10/09/18 04:06 10/09/18 04:06 - Imaging Chest x-ray: report reviewed, image reviewed EKG: image reviewed Additional studies: Results of heart catheterization, transthoracic echocardiogram and transesophageal echocardiogram reviewed Assessment and Plan Assessment: 1. Severe aortic stenosis with peak/mean gradient 105.22 mmHg/69.95 mmHg, valve area 0.9 cm, bicuspid aortic valve, mild to moderate aortic regurgitation 2. Mild mitral regurgitation 3. Normal left ventricular function with EF 55-60% 4. Troponin elevation, likely from aortic stenosis 5. Syncopal episode 6. Current tobacco dependence 7. Paroxysmal atrial fibrillation, currently in normal sinus rhythm Plan: The patient was seen and examined at the bedside with his girlfriend present. Chart/diagnostics were reviewed. The usual perioperative course of aortic valve replacement was discussed in detail with the patient, risks and benefits were discussed, both bioprosthetic aortic valves as well as mechanical aortic valves including the need for lifelong Coumadin for anticoagulation was discussed with the patient, all questions were answered. The patient is agreeable to surgery. Preoperative testing was ordered. Patient will need dental clearance prior to surgery, he does not see a dentist on a regular basis. Patient was encouraged to quit smoking. Will discuss the case in detail with Dr. Gong. Continue medical management per primary care service and cardiology. More recommendations to follow. Thank you Dr. Serrano for this consult. We look forward to working with you in the care of your patient. Time with Patient: Greater than 30
[2018-10-10] MEDS: SODIUM CHLORIDE 0.9% 1,000 ML IV SCH ×3 (19:50→19:52)
[2018-10-10] MEDS: ATORVASTATIN 40 MG TAB PO SCH (19:51)
[2018-10-10] MEDS: ALPRAZolam 0.5 MG TAB PO PRN (19:57)
--- NOTE | 2018-10-10 21:48 | CC ---
CARDIAC CATHETERIZATION REPORT Mr. Merida is a 53-year-old gentleman who was admitted with a history of a syncope. Patient was found to have a murmur of aortic stenosis. Echocardiogram was suggestive of severe aortic stenosis. The patient underwent a transesophageal echocardiogram which revealed calcified valve that appeared to be bicuspid, with aortic valve area calculated in the range of 0.9 cm2. Left ventricular systolic function was normal and patient was advised right and left heart catheterization. PROCEDURE: The right groin was prepped and draped in the usual manner and the skin was infiltrated with 2% Xylocaine. The right femoral artery was entered using Seldinger technique. Using micropuncture needle, and a #6 Chinese sheath was placed in. Subsequently, right femoral vein was entered using Seldinger technique and micropuncture needle, and a #8 Chinese sheath was placed in. Initially right heart catheterization was performed and subsequently coronary angiography and left ventricular pressures were obtained. HEMODYNAMICS: The peak gradient across the aortic wall is 95 to 100 mmHg. Left ventricular end- diastolic pressure is 32 mmHg. Mean right atrial pressure is 2 mmHg. Pulmonary artery systolic pressure was 39 over 14 to 15 mmHg and the mean pulmonary capillary wedge pressure was 10 to 12 mmHg. The cardiac output by thermodilution was 5.2 L. The aortic valve area calculated by thermodilution cardiac output is 0.45 cm2. SELECTIVE CORONARY ANGIOGRAPHY: Left main coronary artery is normal and patent. LAD is a good-caliber blood vessel and gives rise to a good-sized diagonal branch. LAD and its branches are normal. Circumflex coronary artery is a good-caliber blood vessel and gives rise to obtuse marginal branch. The circumflex coronary artery and its branches are normal. Right coronary artery is normal. FINAL IMPRESSION: This study reveals severe aortic stenosis with a peak gradient of 95 to 100 mmHg. Patient's right heart pressures are normal. Aortic valve area calculated by thermodilution is 0.45 cm2. Coronary arteries are normal. RECOMMENDATIONS: We will get surgical consultation for aortic valve replacement. MMODL / IJN: [id number] /
--- NOTE | 2018-10-10 22:18 | US ---
EXAMINATION TYPE: US carotid duplex BILAT DATE OF EXAM: 10/10/2018 COMPARISON: NONE CLINICAL HISTORY: preop aortic valve replacement. Syncope new onset AFIB. EXAM MEASUREMENTS: RIGHT: Peak Systolic Velocity (PSV) cm/sec ----- Right CCA: 78.4 ----- Right ICA: 79.8 ----- Right ECA: 87.1 ICA/CCA ratio: 1.0 RIGHT: End Diastole cm/sec ----- Right CCA: 18.8 ----- Right ICA: 18.8 ----- Right ECA: 14.4 LEFT: Peak Systolic Velocity (PSV) cm/sec ----- Left CCA: 84.2 ----- Left ICA: 79.8 ----- Left ECA: 75.4 ICA/CCA ratio: 0.9 LEFT: End Diastole cm/sec ----- Left CCA: 20.2 ----- Left ICA: 21.7 ----- Left ECA: 15.8 VERTEBRALS (direction of flow): Right Vertebral: Antegrade Left Vertebral: Antegrade Rhythm: Normal IMPRESSION: NO SIGNIFICANT STENOSIS.
[2018-10-11] MEDS: ASPIRIN 325 MG TAB PO SCH (09:13)
[2018-10-11] MEDS: FAMOTIDINE 20 MG TAB PO SCH ×2 (09:13→19:32)
--- NOTE | 2018-10-11 09:43 | P.PN ---
Subjective Progress Note Date: 10/11/18 Principal diagnosis: Severe aortic stenosis. Syncopal episode. Elevated troponins, likely from with normal coronaries. Current tobacco dependence. Paroxysmal atrial fibrillation, currently normal sinus rhythm. Patient's currently sitting up in bed in no acute distress. Denies any pain or shortness of breath. Denies any lightheadedness, dizziness, or any further syncopal episodes. Preoperative teaching for aortic valve replacement was initiated yesterday, reinforced this morning. All questions answered. Objective - Vital Signs Vital signs: Vital Signs Temp 98 F 10/11/18 04:00 Pulse 83 10/11/18 04:00 Resp 18 10/11/18 04:00 BP 92/54 10/11/18 04:00 Pulse Ox 96 10/11/18 04:00 Intake & Output 10/10/18 10/11/18 10/11/18 18:59 06:59 18:59 Intake Total 540 Balance 540 Weight 65.4 kg Intake: IV 300 Oral 240 Other: # Voids 1 1 - Constitutional General appearance: Present: cooperative, no acute distress - Respiratory Details: Lungs sounds diminished bilaterally. Respirations even, nonlabored. Currently on room air with oxygen saturation 96%. Incentive spirometry was ordered. - Cardiovascular Details: S1 present, absent S2, positive systolic murmur. Regular rate and rhythm, sinus rhythm on telemetry. Palpable peripheral pulses bilaterally. No edema present. No calf pain or tenderness noted. - Gastrointestinal Gastrointestinal Comment(s): Abdomen soft, nontender, nondistended. Bowel sounds present 4 quadrants. Tolerating diet. - Genitourinary Genitourinary Comment(s): Continues to void clear, yellow urine. - Integumentary Integumentary Comment(s): Skin is warm and dry with evidence of good perfusion. - Neurologic Neurologic: Present: CNII-XII intact - Musculoskeletal Musculoskeletal: Present: strength equal bilaterally - Psychiatric Psychiatric: Present: A&O x's 3, appropriate affect, intact judgment & insight - Allied health notes Allied health notes reviewed: nursing - Labs CBC & Chem 7: 10/09/18 04:06 10/09/18 04:06 - Imaging and Cardiology Preoperative testing reviewed, including carotid dopplers, pulmonary function test still outstanding. Assessment and Plan Assessment: 1. Severe aortic stenosis with peak/mean gradient 105.22 mmHg/69.95 mmHg, valve area 0.9 cm, bicuspid aortic valve, mild to moderate aortic regurgitation 2. Mild mitral regurgitation 3. Normal left ventricular function with EF 55-60% 4. Troponin elevation, likely from aortic stenosis 5. Syncopal episode 6. Current tobacco dependence 7. Paroxysmal atrial fibrillation, currently in normal sinus rhythm Plan: 1. Dr. Ferrer offered the patient mechanical aortic valve replacement. STS risk score was discussed with the patient, and he is agreeable to surgery. 2. The patient will need dental clearance prior to surgery and he is artery working on getting a dental appointment. 3. We discussed with the patient that we will use On-X mechanical valve, and he will be on lifelong Coumadin. He understands and is agreeable. 4. Patient was encouraged to quit smoking. 5. The patient may be discharged to home from our standpoint to obtain dental clearance. He should take it easy and avoid straining and heavy lifting. We will make plans for surgery in the next couple of weeks once dental clearance has been obtained. 6. Management per primary care service and cardiology. Time with Patient: Greater than 30
--- NOTE | 2018-10-11 11:42 | P.PN ---
Subjective Progress Note Date: 10/10/18 Patient seen and examined at bedside, awaiting scheduled heart catheterization and ALVARO, patient reports being anxious. Patient denies any lightheadedness dizziness. Denies chest pain or shortness of breath Objective - Vital Signs Vital signs: Vital Signs Temp 98.1 F 10/10/18 04:00 Pulse 67 10/10/18 13:16 Resp 18 10/10/18 13:16 BP 107/59 10/10/18 13:16 Pulse Ox 98 10/10/18 13:16 Intake & Output 10/09/18 10/10/18 10/10/18 18:59 06:59 18:59 Intake Total 1192.421 300 Output Total 500 1000 Balance 692.421 -1000 300 Weight 65 kg Intake: IV 300 Intake, IV Titration 472.421 Amount Heparin Sod,Pork in 0.45% 152.421 NaCl 25,000 unit In 0.45 % NaCl 1 250ml.bag @ 18 UNITS/KG/HR 11.18 mls/hr IV .[id number] YANNICK Rx#: [id number] Sodium Chloride 0.9% 1, 320 000 ml @ 80 mls/hr IV . [id number] YANNICK Rx#:[id number] Oral 720 Output: Urine 500 1000 Other: # Voids 1 1 1 # Bowel Movements 1 1 - Exam Constitutional: No acute distress, conversant, pleasant Eyes: Anicteric sclerae, moist conjunctiva, no lid-lag, PERRLA ENMT: NC/AT,Oropharynx clear, no erythema, exudates Neck:Supple, FROM, no masses, or JVD, No carotid bruits; No thyromegaly Lungs: Clear to auscultation, Clear to percussion, Normal respiratory effort, no accessory muscle use Cardiovascular: Heart regular in rate and rhythm, 4/6 holosystolic murmur, gallops, or rubs no peripheral edema Abdominal: Soft Nontender, nom distended, no guarding, no rebound or rigidity, Normoactive bowel sounds No hepatomegaly, No splenomegaly, No palpable mass No abdominal wall hernia noted Skin: Normal temperature, tone, texture, turgor, No induration No subcutaneous nodules, No rash, lesions, No ulcers Extremities:No digital cyanosis No clubbing, Pedal pulses intact and symmetrical Radial pulses intact and symmetrical Normal gait and station, No calf tenderness Psychiatric: Alert and oriented to person, place and time, Appropriate affect Intact judgement Neuro: Muscles Strength 5/5 in all 4 extremities, Sensation to light touch grossly present throughout, Cranial nerves II-XII grossly intact. No focal sensory deficits - Labs CBC & Chem 7: 10/09/18 04:06 10/09/18 04:06 Assessment and Plan (1) Severe aortic stenosis Narrative/Plan: * 2-D echocardiogram confirming severe aortic stenosis * Patient scheduled for left heart catheterization and ALVARO today * We'll need to consult cardiothoracic surgery to evaluate for aortic valve replacement * Preserved LVEF 55-60% Current Visit: Yes Status: Acute Code(s): I35.0 - NONRHEUMATIC AORTIC (VALVE ) STENOSIS SNOMED Code(s): 30474077 (2) Elevated troponin Narrative/Plan: * Likely secondary to severe aortic stenosis Current Visit: Yes Status: Acute Code(s): R74.8 - ABNORMAL LEVELS OF OTHER SERUM ENZYMES SNOMED Code(s): 961748540 (3) Syncope Narrative/Plan: * Secondary to severe aortic stenosis Current Visit: Yes Status: Acute Code(s): R55 - SYNCOPE AND COLLAPSE SNOMED Code(s): 597246424 (4) Paroxysmal A-fib Narrative/Plan: * Currently in sinus Current Visit: Yes Status: Resolved Code(s): I48.0 - PAROXYSMAL ATRIAL FIBRILLATION SNOMED Code(s): 757653661 Plan: * Disposition follow-up catheterization and ALVARO results
--- NOTE | 2018-10-11 11:57 | P.DS ---
Providers Date of admission: 10/08/18 20:15 Expected date of discharge: 10/12/18 Attending physician: Charlotte Martinez MD Consults: 10/08/18 22:19 Consult Physician Urgent Consulting Provider: Marcelo Melara Consult Reason/Comments: Afib Do you want consulting provider notified?: Yes 10/10/18 14:42 Consult Physician Urgent Consulting Provider: Dario Gong Consult Reason/Comments: severe aortic stenosis Do you want consulting provider notified?: Yes Primary care physician: Stated None - Discharge Diagnosis(es) (1) Severe aortic stenosis Current Visit: Yes Status: Acute (2) Elevated troponin Current Visit: Yes Status: Acute (3) Syncope Current Visit: Yes Status: Acute (4) Paroxysmal A-fib Current Visit: Yes Status: Resolved Hospital Course: The patient is a 53-year-old male that was admitted with syncope and found to have severe aortic stenosis as seen on 2-D echocardiogram with a preserved LVEF of 55-60%, subsequent cardiac catheterization showed normal coronary arteries and ALVARO showed moderate aortic insufficiency, severe aortic stenosis with a peak/mean gradient across aortic valve 105.22/69.95. The patient was noted to have elevated troponins due to severe aortic stenosis that got as high as 3.9 and trended down. Cardiac thoracic surgery was consulted and the patient was seen by we discussed aortic valve replacement in detail with the patient including risk and benefits. The use of bioprosthetic as well as mechanical aortic valve was discussed with the patient including the need for lifelong anticoagulation patient was agreeable to surgery. Facial CT was negative for any suggestion of abscess or infection. The patient was seen and cleared from a dental perspective to proceed with any surgery. He was then subsequently discharged home in stable condition. This discharge process took approximately 35 minutes Patient Condition at Discharge: Stable Plan - Discharge Summary Discharge Rx Participant: No New Discharge Prescriptions: Continue No Known Home Medications Discharge Medication List No Known Home Medications 10/08/18 [History] Follow up Appointment(s)/Referral(s): Duane Ferrer MD [STAFF PHYSICIAN] - As Needed (Patient to call office to schedule surgery once dental clearence has been obtained.) None,Stated [Primary Care Provider] - 1-2 days (Please find and schedule an appointment with a primary care doctor) Evens Serrano MD [STAFF PHYSICIAN] - 10/17/18 4:15 pm (Tuesday) Patient Instructions/Handouts: *Surgery [facility] - After Heart Catheterization - [employer] Instructions, Aortic Valve Replacement (PRE) Activity/Diet/Wound Care/Special Instructions: Pt will need indigent funds at [place] for any new medications. Discharge Disposition: HOME SELF-CARE
--- NOTE | 2018-10-11 14:46 | P.PN ---
Subjective Progress Note Date: 10/11/18 This is a pleasant 53-year-old gentleman with no prior documented history of hypertension, no diabetes, no hyperlipidemia, positive nicotine dependence, rare EtOH, no significant family history of premature coronary artery disease. 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 He denies any chest pressure or chest discomfort. He does feel that his exercise tolerance has decreased recently. Patient was outside to try to fix a tire on his car, he states he became lightheaded and somewhat diaphoretic. He did have some mild difficulty in breathing. He struggled to make it back into the house, where he ultimately walked into the house and collapsed on the floor. According to the girlfriend he was down for approximately 30 seconds. He did not lose bowel or bladder function. Upon wakening, he was quite diaphoretic and clammy. He did know where he was when he awoke. On EMS arrival, patient had a blood pressure of 54/30 which improved to 94/80 on arrival to the emergency room. Chest x-ray on presentation here revealed slight coarsening of the lung markings which could relate to mild fibrosis. His initial EKG on presentation here showed a sinus arrhythmia with lateral T-wave inversion. 10/11/2018 Patient did undergo cardiac catheterization yesterday which did not reveal any obstructive coronary artery disease. Patient has severe aortic stenosis and a surgical consultation was requested. He was seen in consultation by cardiothoracic surgery, and will be scheduled for a valve replacement as an outpatient. He was seen and examined this morning, overall doing well. Denies any dizziness or lightheadedness, up ambulating in the hallway without any difficulty. Hemodynamically stable. Patient does require dental evaluation prior to surgery. We will obtain a consultation with here, as patient does not have financial resources to see a dentist as an outpatient. Objective - Vital Signs Vital signs: Vital Signs Temp 98 F 10/11/18 04:00 Pulse 69 10/11/18 12:00 Resp 18 10/11/18 12:00 BP 128/83 10/11/18 12:00 Pulse Ox 96 10/11/18 12:00 Intake & Output 10/10/18 10/11/18 10/11/18 18:59 06:59 18:59 Intake Total 540 240 Balance 540 240 Weight 65.4 kg Intake: IV 300 Oral 240 240 Other: # Voids 1 1 1 - Exam PHYSICAL EXAMINATION: GENERAL: 53-year-old gentleman in no acute distress at the time of my examination HEENT: Head is atraumatic, normocephalic. Pupils equal, round. Sclera anicteric. Conjunctiva are clear. Mucous membranes of the mouth are moist. Neck is supple. There is no elevated jugular venous pressure. No carotid bruit is heard. HEART EXAMINATION: Heart S1, no S2 audible, systolic ejection murmur heard . CHEST EXAMINATION: Lungs are clear to auscultation and precussion. No chest wall tenderness is noted on palpation or with deep breathing. ABDOMEN: Soft, nontender. Bowel sounds are heard. No organomegaly noted. EXTREMITIES: 2+ peripheral pulses with no evidence of peripheral edema and no calf tenderness noted. Right groin soft, no evidence of any hematoma. NEUROLOGIC patient is awake, alert and oriented ?-3. . - Labs CBC & Chem 7: 10/09/18 04:06 10/09/18 04:06 Assessment and Plan Plan: Assessment and plan #1 syncope, rule out cardiac causes. Patient has a notable aortic systolic murmur, rule out severe aortic stenosis #2 abnormal troponins 012, 3.9, 1.8. Possible acute coronary syndrome, could be secondary to severe aortic stenosis. #3 no prior documented history of hypertension, no diabetes, no hyperlipidemia #4 nicotine dependence #5 symptoms of shortness of breath and dizziness. Plan Patient did have an echocardiogram with Doppler study performed which revealed a normal left ventricular systolic function with severe aortic stenosis, peak gradient of 105. Subsequent to that he also underwent a ALVARO and subsequent cardiac catheterization. Patient does not have any obstructive coronary artery disease. He was referred to cardiothoracic surgery for evaluation for a valve replacement. They have seen him in consultation. Overall patient should be able to be discharged home soon. We will get a dental evaluation here prior to discharge. And he will be scheduled to undergo surgery once his evaluation has been completed. DNP note has been reviewed, I agree with a documented findings and plan of care. Patient was seen and examined.
--- NOTE | 2018-10-11 17:13 | CT ---
EXAMINATION TYPE: CT facial bones wo con DATE OF EXAM: 10/11/2018 COMPARISON: None HISTORY: Pre Op scan. Panorex view included CT DLP: 353.9 mGycm Automated exposure control for dose reduction was used. TECHNIQUE: CT scan of the sinuses is performed without contrast, axial images are obtained, coronal r eformatted images are also reviewed. FINDINGS: The orbital margins are intact. There is no evidence of a blowout fracture. There is no david dence of retro-orbital mass. Zygomatic arches appear normal. Maxilla is intact. There is bilateral pa tency of the ostiomeatal complex. There is fairly normal aeration of the paranasal sinuses. Mandible is intact. Temporomandibular joints are intact. Temporal bones appear intact. There are missing lower right teeth. IMPRESSION: Negative CT scan of the facial bones.
[2018-10-11] MEDS: SODIUM CHLORIDE 0.9% 1,000 ML IV SCH ×2 (19:31→19:33)
[2018-10-11] MEDS: ATORVASTATIN 40 MG TAB PO SCH (19:32)
[2018-10-11] MEDS: ALPRAZolam 0.5 MG TAB PO PRN (21:02)
[2018-10-12] MEDS: FAMOTIDINE 20 MG TAB PO SCH (08:34)
[2018-10-12] MEDS: ASPIRIN 325 MG TAB PO SCH (08:34)
--- NOTE | 2018-10-12 10:46 | P.GSCN ---
History of Present Illness Consult date: 10/12/18 Reason for Consult: Dental clearance for surgery Past Medical History Additional Past Medical History / Comment(s): chronic back and neck pain History of Any Multi-Drug Resistant Organisms: None Reported Past Surgical History: No Surgical Hx Reported Additional Past Surgical History / Comment(s): cosmetic surg Past Anesthesia/Blood Transfusion Reactions: No Reported Reaction Past Psychological History: No Psychological Hx Reported Smoking Status: Current some day smoker Past Alcohol Use History: Occasional Past Drug Use History: None Reported - Past Family History Father Family Medical History: Congestive Heart Failure (CHF) Additional Family Medical History / Comment(s): HF FATHER STILL ALIVE Mother Family Medical History: COPD Medications and Allergies Home Medications Medication Instructions Recorded Confirmed Type No Known Home Medications 10/08/18 10/08/18 History Allergies Allergy/AdvReac Type Severity Reaction Status Date / Time No Known Allergies Allergy Unverified 10/08/18 19:00 Surgical - Exam Vital Signs Pulse Resp BP 89 18 94/84 10/08/18 18:40 10/08/18 18:40 10/08/18 18:40 Intraoral/Extraoral exam completed with CT scan provided Results Exam reveals no intraoral or extraoral swelling. Hard and soft tissue palpated without swelling or mobility. Tooth #30 is fractured, but stable without mobility or infection present. Tooth #19 is in soft tissue only and fractured with no infection or mobility present. Patient is cleared dentally for any surgery needed. Recommended that patient seek dental treatment following surgery for broken teeth and possible caries. - Labs 10/09/18 04:06 10/09/18 04:06 Assessment and Plan Assessment: Patient is dentally cleared for surgery needed
[2018-10-12 11:06] VITALS: BP 116/70; PULSE 63; RESP 18; TEMP 98.3
--- NOTE | 2018-10-12 11:19 | P.PN ---
Subjective Progress Note Date: 10/11/18 Patient seen and examined at bedside, patient denies any lightheadedness chest pain or shortness of breath. Objective - Vital Signs Vital signs: Vital Signs Temp 98.3 F 10/12/18 11:05 Pulse 63 10/12/18 11:05 Resp 18 10/12/18 11:05 BP 116/70 10/12/18 11:05 Pulse Ox 97 10/12/18 11:05 Intake & Output 10/11/18 10/12/18 10/12/18 18:59 06:59 18:59 Intake Total 240 720 480 Balance 240 720 480 Weight 64 kg Intake: Oral 240 720 480 Other: # Voids 1 1 - Exam Constitutional: No acute distress, conversant, pleasant Eyes: Anicteric sclerae, moist conjunctiva, no lid-lag, PERRLA ENMT: NC/AT,Oropharynx clear, no erythema, exudates Neck:Supple, FROM, no masses, or JVD, No carotid bruits; No thyromegaly Lungs: Clear to auscultation, Clear to percussion, Normal respiratory effort, no accessory muscle use Cardiovascular: Heart regular in rate and rhythm, 4/6 holosystolic murmur, gallops, or rubs no peripheral edema Abdominal: Soft Nontender, nom distended, no guarding, no rebound or rigidity, Normoactive bowel sounds No hepatomegaly, No splenomegaly, No palpable mass No abdominal wall hernia noted Skin: Normal temperature, tone, texture, turgor, No induration No subcutaneous nodules, No rash, lesions, No ulcers Extremities:No digital cyanosis No clubbing, Pedal pulses intact and symmetrical Radial pulses intact and symmetrical Normal gait and station, No calf tenderness Psychiatric: Alert and oriented to person, place and time, Appropriate affect Intact judgement Neuro: Muscles Strength 5/5 in all 4 extremities, Sensation to light touch grossly present throughout, Cranial nerves II-XII grossly intact. No focal sensory deficits - Labs CBC & Chem 7: 10/09/18 04:06 10/09/18 04:06 Assessment and Plan (1) Severe aortic stenosis Narrative/Plan: * 2-D echocardiogram confirming severe aortic stenosis * Left heart catheterization indicating normal coronary arteries * ALVARO consistent with severe aortic stenosis with peak/mean gradient 105.22 mmHg/69.95 mmHg, valve area 0.9 cm, bicuspid aortic valve, mild to moderate aortic regurgitation with Preserved LVEF 55-60% * Cardiothoracic surgery recommended aortic replacement with on eczema mechanical valve with plans for lifelong anticoagulation with Coumadin Current Visit: Yes Status: Acute Code(s): I35.0 - NONRHEUMATIC AORTIC (VALVE ) STENOSIS SNOMED Code(s): 53041799 (2) Elevated troponin Current Visit: Yes Status: Acute Code(s): R74.8 - ABNORMAL LEVELS OF OTHER SERUM ENZYMES SNOMED Code(s): 938461371 (3) Syncope Current Visit: Yes Status: Acute Code(s): R55 - SYNCOPE AND COLLAPSE SNOMED Code(s): 778564843 (4) Paroxysmal A-fib Current Visit: Yes Status: Resolved Code(s): I48.0 - PAROXYSMAL ATRIAL FIBRILLATION SNOMED Code(s): 312434930 Plan: * Disposition anticipated discharge tomorrow after sleeping dental clearance for surgery
--- NOTE | 2018-10-12 12:06 | P.PN ---
Subjective Progress Note Date: 10/12/18 This is a pleasant 53-year-old gentleman with no prior documented history of hypertension, no diabetes, no hyperlipidemia, positive nicotine dependence, rare EtOH, no significant family history of premature coronary artery disease. 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 He denies any chest pressure or chest discomfort. He does feel that his exercise tolerance has decreased recently. Patient was outside to try to fix a tire on his car, he states he became lightheaded and somewhat diaphoretic. He did have some mild difficulty in breathing. He struggled to make it back into the house, where he ultimately walked into the house and collapsed on the floor. According to the girlfriend he was down for approximately 30 seconds. He did not lose bowel or bladder function. Upon wakening, he was quite diaphoretic and clammy. He did know where he was when he awoke. On EMS arrival, patient had a blood pressure of 54/30 which improved to 94/80 on arrival to the emergency room. Chest x-ray on presentation here revealed slight coarsening of the lung markings which could relate to mild fibrosis. His initial EKG on presentation here showed a sinus arrhythmia with lateral T-wave inversion. 10/11/2018 Patient did undergo cardiac catheterization yesterday which did not reveal any obstructive coronary artery disease. Patient has severe aortic stenosis and a surgical consultation was requested. He was seen in consultation by cardiothoracic surgery, and will be scheduled for a valve replacement as an outpatient. He was seen and examined this morning, overall doing well. Denies any dizziness or lightheadedness, up ambulating in the hallway without any difficulty. Hemodynamically stable. Patient does require dental evaluation prior to surgery. We will obtain a consultation with here, as patient does not have financial resources to see a dentist as an outpatient. 10/12/2018 Patient was seen and examined this morning, he did have a dental evaluation performed yesterday and has been approved for surgery. Hemodynamically he is stable he's been up ambulating in the hallway without any difficulty. Objective - Vital Signs Vital signs: Vital Signs Temp 98.3 F 10/12/18 11:05 Pulse 63 10/12/18 11:05 Resp 18 10/12/18 11:05 BP 116/70 10/12/18 11:05 Pulse Ox 97 10/12/18 11:05 Intake & Output 10/11/18 10/12/18 10/12/18 18:59 06:59 18:59 Intake Total 240 720 480 Balance 240 720 480 Weight 64 kg Intake: Oral 240 720 480 Other: # Voids 1 1 - Exam PHYSICAL EXAMINATION: GENERAL: 53-year-old gentleman in no acute distress at the time of my examination HEENT: Head is atraumatic, normocephalic. Pupils equal, round. Sclera anicteric. Conjunctiva are clear. Mucous membranes of the mouth are moist. Neck is supple. There is no elevated jugular venous pressure. No carotid bruit is heard. HEART EXAMINATION: Heart S1, no S2 audible, systolic ejection murmur heard . CHEST EXAMINATION: Lungs are clear to auscultation and precussion. No chest wall tenderness is noted on palpation or with deep breathing. ABDOMEN: Soft, nontender. Bowel sounds are heard. No organomegaly noted. EXTREMITIES: 2+ peripheral pulses with no evidence of peripheral edema and no calf tenderness noted. Right groin soft, no evidence of any hematoma. NEUROLOGIC patient is awake, alert and oriented ?-3. . - Labs CBC & Chem 7: 10/09/18 04:06 10/09/18 04:06 Assessment and Plan Plan: Assessment and plan #1 syncope, rule out cardiac causes. Patient has a notable aortic systolic murmur, rule out severe aortic stenosis #2 abnormal troponins 012, 3.9, 1.8. Possible acute coronary syndrome, could be secondary to severe aortic stenosis. #3 no prior documented history of hypertension, no diabetes, no hyperlipidemia #4 nicotine dependence #5 symptoms of shortness of breath and dizziness. Plan I'm cardiology's perspective, he may be able to be discharged home today. Patient will be scheduled for aortic valve surgery. We will follow him in the office. DNP note has been reviewed, I agree with a documented findings and plan of care. Patient was seen and examined.
== END 2018-10-12 14:50 | disposition home or self-care (01) | DRG 287 ==
LOC: EC 18:39 → 3SCARD 20:15
PROVIDERS: ADMIT Internal Medicine; ATTEND Internal Medicine
PROC: B2111ZZ Fluoroscopy of Multiple Coronary Arteries using Low Osmolar Contrast (ICD-10-PCS; 2018-10-10)
PROC: B24BZZ4 Ultrasonography of Heart with Aorta, Transesophageal (ICD-10-PCS; 2018-10-10)
PROC: 4A023N8 Measurement of Cardiac Sampling and Pressure, Bilateral, Percutaneous Approach (ICD-10-PCS; principal; 2018-10-10 13:00)
DX: I08.0 Rheumatic disorders of both mitral and aortic valves (principal); D72.829 Elevated white blood cell count, unspecified; F17.200 Nicotine dependence, unspecified, uncomplicated; I48.0 Paroxysmal atrial fibrillation; G89.29 Other chronic pain; M54.9 Dorsalgia, unspecified; M54.2 Cervicalgia; Z82.49 Family history of ischemic heart disease and other diseases of the circulatory system; Z82.5 Family history of asthma and other chronic lower respiratory diseases
CPT/HCPCS: 36415; 70486; 71046; 80048; 80053; 80061; 82550; 82553; 82810; 83036; 83735; 83880; 84443; 84484; 85018; 85025; 85027; 85379; 85610; 85730; 93306; 93312; 93320; 93325; 93458; 93880; 94150; 96365; 96376; 99285

== ENCOUNTER → 2018-10-24 | Outpatient (CLI) | payer OTHER ==
[2018-10-24 09:45] LABS: HCT 48.1 % (39.0-53.0); HGB 16.1 gm/dL (13.0-17.5); MCH 31.1 pg (25.0-35.0); MCHC 33.5 g/dL (31.0-37.0); MCV 92.8 fL (80.0-100.0); Mean Platelet Volume 6.8; Platelet Count 231 k/uL (150-450); RBC 5.19 m/uL (4.30-5.90); RDW 12.6 % (11.5-15.5); WBC 8.5 k/uL (3.8-10.6)
[2018-10-24 10:00] LABS: INR 0.9 (<1.2); Partial Thromboplastin Time 26.5 sec (22.0-30.0); Prothrombin Time 9.8 sec (9.0-12.0)
[2018-10-24 10:23] LABS: Appearance,Urine Clear (Clear); Bilirubin,Urine Negative (Negative); Blood,Urine Negative (Negative); Color,Urine Light Yellow; Glucose,Urine (UA) Negative (Negative); Ketones,Urine Negative (Negative); Leukocyte Esterase,Urine Negative (Negative); Nitrite,Urine Negative (Negative); PH, Urine 6.5 (5.0-8.0); Protein,Urine Negative (Negative); Specific Gravity,Urine 1.014 (1.001-1.035); Urobilinogen,Urine <2.0 mg/dL (<2.0)
[2018-10-24 18:03] LABS: Albumin 4.5 g/dL (3.80-4.90); Albumin/Globulin Ratio 1.73 (1.60-3.17); Anion Gap 9.6 mmol/L (4.00-12.00); Carbon Dioxide 28.4 mmol/L (21.6-31.8); Globulin 2.6 g/dL (1.6-3.3); Potassium 5.2 mmol/L (3.5-5.5); Total Bilirubin 0.7 mg/dL (0.3-1.2); Total Protein 7.1 g/dL (6.2-8.2)
[2018-10-24 18:34] LABS: Hepatitis A Antibody IgM Non-Reactive (Non-Reactive); Hepatitis B Core IgM Non-Reactive (Non-Reactive)
== END | disposition home or self-care (01) ==
LOC: LABWHC1 09:04
PROVIDERS: ATTEND Thoracic Surgery (Cardiothoracic Vascular Surgery)
DX: Z01.818 Encounter for other preprocedural examination (principal); Z01.812 Encounter for preprocedural laboratory examination
CPT/HCPCS: 36415; 80053; 80074; 81003; 85027; 85610; 85730; 87070; 87086; 93970

== ENCOUNTER 2018-10-30 05:32 | Inpatient (IN) | payer OTHER ==
[~2018-10-30 05:32] MED LIST: ALBUMIN HUMAN 25% 50 ML IV ONE; ASPIRIN 325 MG TAB PO ONE; ATORVASTATIN 10 MG TAB PO ONE; CALCIUM CHLORIDE 100 MG/ML 10 ML SYRINGE IV ONE; CARDIOPLEGIC SOLN (K+ 16 MEQ/L 1,000 ML with SODIUM BICARB (1 MEQ/ML) 20 ML, LIDOCAINE ... PERFUSION ONE; CHLORHEXIDINE GLUCONATE 15 ML CUP MUCOUS MEM ONE; CLEVIDIPINE BUTYRATE 25 MG in EMPTY BAG 1 BAG IV ONE; HEPARIN SODIUM 1,000 UN/ML (10ML VL) IV ONE; HEPARIN SODIUM,PORCINE 5,000 UNIT in SODIUM CHLORIDE 0.9% 500 ML 500 ML IV ONE; INSULIN REGULAR 100 UNIT in SODIUM CHLORIDE 0.9% 100 ML IV ONE; LACTATED RINGERS 1,000 ML IV ONE; MAGNESIUM SULFATE MG 500 MG/ML IV ONE; MANNITOL 25% 12.5 GM/50 ML VIAL IV ONE; METOPROLOL TARTRATE 12.5 MG TAB PO ONE; MUPIROCIN 2% OINT 22 GM TUBE NASAL ONE; NITROGLYCERIN SL TABS 0.4 MG TAB SUBLINGUAL ONE; NITROGLYCERIN-D5W PMX 25 MG/250 ML BTL IV ONE; NITROGLYCERIN-D5W PMX 50 MG in DEXTROSE/WATER 1 250ML.BAG IV ONE; NOREPINEPHRINE 4 MG in SODIUM CHLORIDE 0.9% 250 ML IV ONE; PAPAVERINE 360 MG in SODIUM CHLORIDE 0.9% 90 ML IV ONE; PHENYLEPHRINE 10 MG/ML VIAL IV ONE; PHENYLEPHRINE 40 MG in SODIUM CHLORIDE 0.9% 250 ML IV ONE; PROPOFOL 1,000 MG/100 ML VIAL IV ONE; PROTAMINE SULFATE 10 MG/ML 25 ML VIAL IV ONE; PROTAMINE SULFATE 250 MG in EMPTY BAG 1 BAG IV ONE; SODIUM BICARB 8.4% 50 ML SYR (1 MEQ/ML) IV ONE; SODIUM CHLORIDE 0.9% 1,000 ML IV ONE; TRANEXAMIC ACID 2,000 MG in SODIUM CHLORIDE 0.9% 180 ML IV ONE; ceFAZolin 1,000 MG in SODIUM CHLORIDE 0.9% IRRIGATIO 1,000 ML IRRIGATION ONE; ceFAZolin 2,000 MG in SODIUM CHLORIDE 0.9% 30 ML IVPB ONE
[2018-10-30 06:07] LABS: Glucose,Whole Blood 90 mg/dL (75-99)
[2018-10-30] MEDS ORDERED: SODIUM CHLORIDE 0.9% IRRIG 1,000 ML BTL IRRIGATION ONE (07:55)
[2018-10-30] MEDS ORDERED: ELECTROLYTE-R (PH 7.4) 1,000 ML IV.SOLN IV ONE (07:55)
[2018-10-30 08:21] LABS: ABG HCO3 29 mmol/L (21-25); ABG PCO2 49 mmHg (35-45); ABG PH 7.39 (7.35-7.45); ABG PO2 316 mmHg (83-108); ABG Potassium Whole Blood 4.2 mmol/L (3.4-4.5); ABG Sodium Whole Blood 139 mmol/L (135-146); ABG TCO2 31 mmol/L (19-24)
[2018-10-30 08:56] LABS: ABG Base Excess 2.8 mmol/L; ABG HCO3 27 mmol/L (21-25); ABG PCO2 41 mmHg (35-45); ABG PH 7.43 (7.35-7.45); ABG Potassium Whole Blood 4.1 mmol/L (3.4-4.5); ABG Sodium Whole Blood 138 mmol/L (135-146); ABG TCO2 29 mmol/L (19-24)
[2018-10-30 09:32] LABS: ABG Base Excess 0.2 mmol/L; ABG HCO3 26 mmol/L (21-25); ABG PCO2 46 mmHg (35-45); ABG PH 7.36 (7.35-7.45); ABG PO2 255 mmHg (83-108); ABG Potassium Whole Blood 4.4 mmol/L (3.4-4.5); ABG Sodium Whole Blood 136 mmol/L (135-146); ABG TCO2 27 mmol/L (19-24)
[2018-10-30 10:02] LABS: ABG Base Excess 1.7 mmol/L; ABG HCO3 26 mmol/L (21-25); ABG PCO2 40 mmHg (35-45); ABG PH 7.43 (7.35-7.45); ABG PO2 309 mmHg (83-108); ABG Potassium Whole Blood 4.7 mmol/L (3.4-4.5); ABG Sodium Whole Blood 134 mmol/L (135-146); ABG TCO2 27 mmol/L (19-24)
[2018-10-30 10:31] LABS: ABG Base Excess 0.5 mmol/L; ABG HCO3 25 mmol/L (21-25); ABG PCO2 40 mmHg (35-45); ABG PH 7.41 (7.35-7.45); ABG PO2 321 mmHg (83-108); ABG Potassium Whole Blood 4.6 mmol/L (3.4-4.5); ABG Sodium Whole Blood 134 mmol/L (135-146); ABG TCO2 26 mmol/L (19-24)
[2018-10-30] MEDS ORDERED: AMIODARONE 360 MG in DEXTROSE 5% IN WATER 200 ML IV PRN ×2 (11:08)
[2018-10-30] MEDS ORDERED: DEXTROSE 5% IN WATER 100 ML with AMIODARONE 150 MG IV PRN (11:08)
[2018-10-30] MEDS ORDERED: IPRATROPIUM-ALBUTEROL 3 ML NEB INHALATION PRN (11:08)
[2018-10-30] MEDS ORDERED: CALCIUM CHLORIDE 1,000 MG in SODIUM CHLORIDE 0.9% 100 ML IV PRN (11:08)
[2018-10-30] MEDS ORDERED: AMIODARONE 300 MG in DEXTROSE 5% IN WATER 250 ML IV PRN ×2 (11:08)
[2018-10-30] MEDS ORDERED: BENZOCAINE/MENTHOL LOZENG 1 EACH LOZENGE MUCOUS MEM PRN (11:08)
[2018-10-30] MEDS ORDERED: Potassium Replacement Protocol 1 EACH MISC MISCELLANE PRN (11:08)
[2018-10-30] MEDS ORDERED: INSULIN REGULAR 100 UNIT in SODIUM CHLORIDE 0.9% 100 ML IV SCH (11:08)
[2018-10-30] MEDS ORDERED: PROPOFOL 1,000 MG in EMPTY BAG 1 BAG IV SCH (11:08)
[2018-10-30] MEDS ORDERED: Phosphorus Replacement Protoco 1 EACH MISC MISCELLANE PRN (11:08)
[2018-10-30] MEDS ORDERED: METOCLOPRAMIDE 5 MG/ML 2 ML VIAL IVP PRN (11:08)
[2018-10-30] MEDS ORDERED: Magnesium Replacement Protocol 1 EACH MISC MISCELLANE PRN (11:08)
[2018-10-30] MEDS ORDERED: ONDANSETRON 4 MG/2 ML VIAL IVP PRN (11:08)
[2018-10-30 11:51] LABS: ABG PO2 >420 mmHg (83-108)
--- NOTE | 2018-10-30 11:54 | P.OP ---
Date of Procedure: 10/30/18 Preoperative Diagnosis: Aortic stenosis, bicuspid aortic valve Postoperative Diagnosis: Same Procedure(s) Performed: Aortic valve replacement with 21 mm On-X mechanical valve, epi-aortic ultrasonography, ligation of left atrial appendage with 35 mm AtriCure clip Implants: 21 mm On-X mechanical valve, 35 mm AtriCure clip Anesthesia: ANA LUISA Surgeon: Duane Ferrer Fiber Optic Technician #1: Phil Holland Estimated Blood Loss (ml): 400 IV fluids (ml): 1,500 Urine output (ml): 800 Pathology: other (Aortic valve) Condition: stable Disposition: ICU Indications for Procedure: 53-year-old male presented with shortness of breath and heart failure symptomatology. He was found to have critical aortic valvular stenosis. This appeared to be congenital bicuspid aortic valvular disease. Patient was recommended to undergo surgical aortic valve replacement. Dental clearance was obtained. Elective surgery was scheduled. Operative Findings: ALVARO demonstrated severe calcific aortic stenosis with a bicuspid aortic valve with fusion of the left and right coronary cusps. Ventricular function was good. There was no significant mitral valvular disease. At exploration, u ltrasonography demonstrated normal ascending aorta with minimal calcification or disease in the ascending aorta. On exploration of the valve the valve was a congenitally bicuspid valve with fusion of the left and right coronary cusp. There was heavy calcification of the cusps and the annulus. On completion of the valve replacement, ALVARO demonstrated excellent function of the mechanical valve prosthesis. There was no evidence of paravalvular leak. Ventricular function was excellent. Description of Procedure: The patient was brought to the operating room, placed supine on the operating table, anesthetized and intubated. [place]-Essence catheter had been placed via the right internal jugular approach. Paula and nasogastric tubes were placed. The anterior torso and lower extremities were sterilely prepped and draped in standard fashion. ALVARO probe was placed. Midline sternotomy was performed. Standard sternal retractor was placed. The left pleural space was opened widely and the right pleural space was opened minimally. Pericardium was opened in the midline and the heart was exposed pericardial sutures. Epi-aortic ultrasonography was performed with findings as noted above. Patient was heparinized and cannulated for cardioplegia bypass with a 7 mm soft flow cannula in the distal ascending aorta and a two-stage venous cannula through the right atrial appendage into the inferior vena cava. Antegrade and retrograde cardioplegia lines were placed in standard fashion. Patient was placed on cardiopulmonary bypass and stabilized. Pursestring suture was placed in the right superior pulmonary vein. A 35mm AtriCure clip was applied to the left atrial appendage at its base. The aorta was crossclamped and the heart was arrested with cold crystalloid antegrade cardioplegia followed by retrograde cardioplegia. Left atrial vent was placed through the right superior pulmonary vein. The aorta was opened transversely and the valve exposed. The aorta was small as was the sinotubular junction. The aortotomy was continued through the sinotubular junction into the noncoronary cusp. The valve was carefully explored. Findings as noted above. The valve was excised. The annulus was decalcified. Copious irrigation was performed. Circumferential valve sutures of 2-0 Tycron were placed with pledgets on the ventricular side to allow a supra-valvular implant. The annulus was sized and a 21 mm On-X valve sizer fit but was quite tight. Was felt this would be adequate. We again irrigated the root. A 21 valve was opened and brought on the field. Valve sutures were placed through the sewing ring of the valve. The valve was seated. Valve sutures were tied. The noncoronary cusp was tied last. Excellent seating was obtained in the left and right coronary cusps. The noncoronary cusp was a little bit tight and after tying the valves it was still a 1 mm gap between the edge of the cuff and the aorta. This was reinforced with 4 interrupted vertical mattress 5-0 Prolene sutures laced through the wall of the aorta and tied on the outside. This assured excellent seating of the valve. The valve leaflets moved well. The field was copiously irrigated. The aortotomy was now closed with 2 layer 4-0 Prolene pledgeted suture. The aortotomy was reinforced with some pro- gel. Left atrial vent was removed and the site was reinforced with a 40 pledgeted Prolene suture. Patient was placed in steep Trendelenburg and the cross-clamp was removed. Patient returned to a spontaneous sinus rhythm. Retrograde cardioplegia line was removed and atrial and ventricular pacing wires were placed. The heart was de-aired under ALVARO guidance with pulmonary ventilation and the aortic vent was then removed. Patient was weaned from cardioplegic bypass without the need for inotropic support. He very easily. Heparin was reversed with protamine and good hemostasis was obtained throughout. Patient was decannulated in standard fashion and the pump blood was returned to the patient. Left pleural space was drained with 32-L[place]ian chest tube in the mediastinum with a 36-[place] chest tube. Chest was copiously irrigated with antibiotic solution and the sternum closed with 8 sternal wires. Fascia was closed with 0 Ethibond. Subcutaneous and subcuticular layers were closed with layers of Vicryl suture. Dry sterile dressings were applied and the patient was transferred to the ICU in stable condition.
[2018-10-30 12:03] LABS: Glucose,Whole Blood 86 mg/dL (75-99)
[2018-10-30 12:17] LABS: Basophils % (A) 0 %; Eosinophils # (A) 0.2 k/uL (0-0.7); Eosinophils % (A) 2 %; Lymphocytes # (A) 1.4 k/uL (1.0-4.8); Lymphocytes % (A) 10 %; MCH 31.7 pg (25.0-35.0); MCHC 34.6 g/dL (31.0-37.0); MCV 91.5 fL (80.0-100.0); Mean Platelet Volume 7.1; Monocytes # (A) 0.4 k/uL (0-1.0); Monocytes % (A) 3 %; Neutrophils # (A) 12.9 k/uL (1.3-7.7); Neutrophils % (A) 86 %; RDW 12.4 % (11.5-15.5)
[2018-10-30] MEDS: NITROGLYCERIN-D5W PMX 50 MG in DEXTROSE/WATER 1 250ML.BAG IV SCH (12:17)
[2018-10-30] MEDS: CLEVIDIPINE BUTYRATE 25 MG in EMPTY BAG 1 BAG IV SCH ×3 (12:17→15:30)
[2018-10-30] MEDS: LACTATED RINGERS 1,000 ML IV SCH (12:17)
[2018-10-30 12:19] LABS: ABG Base Excess 1.6 mmol/L; ABG HCO3 28 mmol/L (21-25); ABG Oxygen Saturation 99.7 % (94-97); ABG PCO2 56 mmHg (35-45); ABG PH 7.31 (7.35-7.45); ABG PO2 311 mmHg (83-108); ABG TCO2 30 mmol/L (19-24)
[2018-10-30] MEDS: ALBUMIN HUMAN 5% 250 ML in EMPTY BAG 1 BAG IVPB PRN ×3 (12:19→19:10)
[2018-10-30 12:21] LABS: Ionized Calcium 5.4 mg/dL (4.5-5.3)
[2018-10-30 12:27] LABS: Sodium 137 mmol/L (137-145)
--- NOTE | 2018-10-30 12:29 | XR ---
EXAMINATION TYPE: XR chest 1V portable DATE OF EXAM: 10/30/2018 HISTORY: Post Op CABG COMPARISON: 10/08/2018 TECHNIQUE: Single view of the chest is submitted. FINDINGS: Endotracheal tube, NG tube, SG catheter, mediastianal drains and chest tubes are appropriately placed . Post operative changes of CABG. No sizeable pneumothorax. Scattered Pleural-parenchymal opacities may reflect atelectasis. The heart is not enlarged. IMPRESSION: 1. Post operative changes of CABG.
[2018-10-30 12:30] LABS: ALT 32 U/L (21-72); AST 28 U/L (17-59); Albumin 2.7 g/dL (3.5-5.0); Alkaline Phosphatase 39 U/L (38-126); Anion Gap 4 mmol/L; Blood Urea Nitrogen 17 mg/dL (9-20); Carbon Dioxide 26 mmol/L (22-30); Chloride 107 mmol/L (98-107); Glucose 79 mg/dL (74-99); HGB 11.4 gm/dL (13.0-17.5); Magnesium 4.2 mg/dL (1.6-2.3); Platelet Count 112 k/uL (150-450); Potassium 4.4 mmol/L (3.5-5.1); Total Protein 4.8 g/dL (6.3-8.2)
[2018-10-30 12:34] LABS: INR 1.1 (<1.2); Partial Thromboplastin Time 29.3 sec (22.0-30.0); Prothrombin Time 11.5 sec (9.0-12.0)
[2018-10-30] MEDS: ACETAMINOPHEN IV (For NPO) 1,000 MG in EMPTY BAG 1 BAG IVPB SCH ×2 (12:39→18:00)
[2018-10-30] MEDS: IPRATROPIUM-ALBUTEROL 3 ML NEB INHALATION SCH ×4 (13:27→19:13)
[2018-10-30 13:34] LABS: Glucose,Whole Blood 99 mg/dL (75-99)
[2018-10-30 14:17] LABS: Glucose,Whole Blood 101 mg/dL (75-99)
[2018-10-30] MEDS: KETOROLAC 30 MG/ML 1 ML VIAL IVP SCH ×2 (14:36→20:08)
--- NOTE | 2018-10-30 14:53 | P.CRDCN ---
History of Present Illness Consult date: 10/30/18 History of present illness: This is a 53-year-old gentleman who was recently admitted to the hospital within a short of syncope. Echo and cardiac catheterization showed severe aortic stenosis. His coronary arteries are normal. Today patient underwent aortic valve replacement by Dr. Fererr. Patient had 21 mm ON-X mechanical valve and ligation of the left atrial appendage with a 35 mm articur clip. Patient is extubated, up to 4 hours. Patient is complaining of pain in the chest, postoperative pain. Patient is maintaining sinus rhythm. Chest x-ray seems normal. His cardiac index is good. Overall patient is doing stable at this time. Continue current management. We'll follow him Review of Systems As per the chart Past Medical History Past Medical History: Musculoskeletal Disorder, Syncope Additional Past Medical History / Comment(s): right knee pain, recent SOB w/exertion & recent episode of syncope History of Any Multi-Drug Resistant Organisms: None Reported Past Surgical History: Heart Catheterization Additional Past Surgical History / Comment(s): cosmetic surg on ears as child, ALVARO Past Anesthesia/Blood Transfusion Reactions: Postoperative Nausea & Vomiting (PONV) Smoking Status: Current some day smoker - Past Family History Father Family Medical History: Congestive Heart Failure (CHF) Additional Family Medical History / Comment(s): HF FATHER STILL ALIVE Mother Family Medical History: COPD Medications and Allergies Home Medications Medication Instructions Recorded Confirmed Type Aspirin 81 mg PO BID 10/24/18 10/30/18 History Famotidine [Pepcid] 20 mg PO DAILY 10/24/18 10/30/18 History Melatonin 10 mg PO HS PRN 10/24/18 10/30/18 History Mupirocin 2% Oint [Bactroban 2% 1 applic NASAL BID 10/24/18 10/30/18 History Oint] Aspirin 324 mg PO ONCE 10/30/18 10/30/18 History Allergies Allergy/AdvReac Type Severity Reaction Status Date / Time No Known Allergies Allergy Verified 10/30/18 12:21 Physical Exam Vitals: Vital Signs Temp Pulse Pulse Resp BP BP BP 10/30/18 14:00 74 27 H 112/67 10/30/18 13:45 69 21 114/67 10/30/18 13:30 68 21 113/64 10/30/18 13:15 68 21 112/64 10/30/18 13:00 96.1 F L 65 18 147/84 10/30/18 12:45 66 19 147/84 10/30/18 12:30 66 17 147/84 10/30/18 12:15 60 13 106/60 10/30/18 12:00 96.6 F L 64 12 106/60 10/30/18 11:51 63 12 10/30/18 06:12 97.6 F 58 L 16 121/80 132/77 Pulse Ox 10/30/18 14:00 90 L 10/30/18 13:45 90 L 10/30/18 13:30 92 L 10/30/18 13:15 93 L 10/30/18 13:00 94 L 10/30/18 12:45 94 L 10/30/18 12:30 96 10/30/18 12:15 100 10/30/18 12:00 100 10/30/18 11:51 10/30/18 06:12 97 Intake and Output 10/29/18 10/30/18 10/30/18 22:59 06:59 14:59 Intake Total 493.191 Output Total 3160 Balance -2666.809 Intake: IV 474 ACETAMINOPHEN IV (For NPO 100 ) 1,000 mg In Empty Bag 1 bag @ 400 mls/hr IVPB Q6HR [facility] Rx#:[id number] Albumin Human 5% 250 ml 125 In Empty Bag 1 bag @ 250 mls/hr IVPB Q1HR PRN Rx#: [id number] CO/CI 40 Lactated Ringers 1,000 ml 150 @ 50 mls/hr IV .Q20H [facility] Rx#:[id number] Pressure Bag 27 Intake, IV Titration 19.191 Amount Clevidipine Butyrate 25 3.8 mg In Empty Bag 1 bag @ 1 MG/HR 2 mls/hr IV .Q24H [facility] Rx#:[id number] Propofol 1,000 mg In 15.391 Empty Bag 1 bag @ Titrate IV .Q0M [facility] Rx#: [id number] Output: Chest Tube Drainage 125 Left Pleural/Mediastinal 125 Urine 1035 Estimated Blood Loss 1999 Other: Voiding Method Indwelling Catheter ABP, PAP, CO, CI - Last 8 Hours Arterial Blood Pressure 151/62 Arterial Blood Pressure 148/59 Arterial Blood Pressure 141/54 Arterial Blood Pressure 140/51 Arterial Blood Pressure 139/52 Arterial Blood Pressure 143/53 Arterial Blood Pressure 143/53 Arterial Blood Pressure 137/73 Arterial Blood Pressure 92/44 Pulmonary Artery Pressure 44/30 Pulmonary Artery Pressure 47/29 Pulmonary Artery Pressure 44/23 Pulmonary Artery Pressure 42/22 Pulmonary Artery Pressure 40/23 Pulmonary Artery Pressure 40/23 Pulmonary Artery Pressure 41/22 Pulmonary Artery Pressure 33/21 Pulmonary Artery Pressure 41/4 Cardiac Output 5.1 Cardiac Output 5.1 Cardiac Output 4.3 Cardiac Output 4.3 Cardiac Output 4.6 Cardiac Output 4.3 Cardiac Output 4.3 Cardiac Output 4.3 Cardiac Output 4.3 Cardiac Index 2.7 Cardiac Index 2.5 GENERAL EXAM: Patient is alert and oriented and complains of severe chest pain HEENT: Normocephalic. Normal reaction of pupils, equal size, normal range of extraocular motion. No erythema or exudates in the throat. NECK: No masses, no nuchal rigidity. CHEST: Postsurgical LUNGS: Diminished air entry HEART: Mechanical heart sounds ABDOMEN: No hepatosplenomegaly, normal bowel sounds, no guarding or rigidity. SKIN: No rashes CENTRAL NERVOUS SYSTEM: No focal deficits. EXTREMITIES: No cyanosis, clubbing or edema. Results 10/30/18 11:50 10/30/18 11:50 Cardiac Enzymes 10/30/18 Range/Units 11:50 AST 28 (17-59) U/L Coagulation 10/30/18 Range/Units 11:50 PT 11.5 (9.0-12.0) sec APTT 29.3 (22.0-30.0) sec CBC 10/30/18 Range/Units 11:50 WBC 15.0 H (3.8-10.6) k/uL RBC 3.60 L (4.30-5.90) m/uL Hgb 11.4 L D (13.0-17.5) gm/dL Hct 33.0 L (39.0-53.0) % Plt Count 112 L D (150-450) k/uL Comprehensive Metabolic Panel 10/30/18 Range/Units 11:50 Sodium 137 (137-145) mmol/L Potassium 4.4 (3.5-5.1) mmol/L Chloride 107 (98-107) mmol/L Carbon Dioxide 26 (22-30) mmol/L BUN 17 (9-20) mg/dL Creatinine 0.81 (0.66-1.25) mg/dL Glucose 79 (74-99) mg/dL Calcium 9.0 (8.4-10.2) mg/dL AST 28 (17-59) U/L ALT 32 (21-72) U/L Alkaline Phosphatase 39 (38-126) U/L Total Protein 4.8 L (6.3-8.2) g/dL Albumin 2.7 L (3.5-5.0) g/dL Current Medications Generic Name Dose Route Start Last Admin Trade Name Freq PRN Reason Stop Dose Admin Hydrocodone Bitart/Acetaminophen 1 each 10/31/18 10:54 [place] 5-325 PO Q4HR PRN Moderate Pain Hydrocodone Bitart/Acetaminophen 2 each 10/31/18 10:54 [place] 5-325 PO Q4HR PRN Severe Pain Albuterol/Ipratropium 3 ml 10/30/18 12:00 10/30/18 13:27 Duoneb 0.5 Mg-3 Mg/3 Ml Soln INHALATION 10/30/18 16:56 Not Given RT-Q4H [facility] Albuterol/Ipratropium 3 ml 10/30/18 16:56 Duoneb 0.5 Mg-3 Mg/3 Ml Soln INHALATION RT-QID [facility] Albuterol/Ipratropium 3 ml 10/30/18 11:08 Duoneb 0.5 Mg-3 Mg/3 Ml Soln INHALATION RT-Q2H PRN Shortness Of Breath Or Wheezing Aspirin 325 mg 10/31/18 09:00 Aspirin PO DAILY [facility] Atorvastatin Calcium 40 mg 10/31/18 09:00 Lipitor PO DAILY [facility] Benzocaine/Menthol 1 each 10/30/18 11:08 Cepacol Lozenge MUCOUS MEM Q2H PRN Sore Throat Bisacodyl 10 mg 10/31/18 10:55 Dulcolax RECTAL DAILY PRN Constipation Cefazolin Sodium 2 gm 10/30/18 16:00 Kefzol IVP 10/31/18 08:01 Q8HR [facility] Clopidogrel Bisulfate 75 mg 10/31/18 09:00 Plavix PO DAILY [facility] Heparin Sodium (Porcine) 5,000 unit 10/30/18 19:00 Heparin SQ Q8HR [facility] Amiodarone HCl 150 mg/ 103 mls @ 618 mls/hr 10/30/18 11:08 Dextrose/Water IV .Q10M PRN A.FIB/FLUTTER Protocol Acetaminophen 1,000 mg/ IV 100 mls @ 400 mls/hr 10/30/18 12:00 10/30/18 12:39 Solution IVPB 10/31/18 12:01 400 mls/hr Q6HR [facility] Administration Amiodarone HCl 360 mg/ 200 mls @ 33.333 mls/hr 10/30/18 11:08 Dextrose/Water IV .Q6H PRN A.FIB/FLUTTER Protocol 1 MG/MIN Albumin Human 250 ml/ IV 250 mls @ 250 mls/hr 10/30/18 11:08 10/30/18 12:19 Solution IVPB 11/01/18 11:09 250 mls/hr Q1HR PRN Administration For Volume Calcium Chloride 1,000 mg/ 110 mls @ 100 mls/hr 10/30/18 11:08 Sodium Chloride IV 11/06/18 23:59 ONCE PRN Ionized Calcium less than 4.4 Clevidipine 25 mg/ IV Solution 50 mls @ 2 mls/hr 10/30/18 11:08 10/30/18 14:1 1 IV 20 mg/hr .Q24H [facility] 40 mls/hr Administration Protocol 1 MG/HR Amiodarone HCl 300 mg/ 250 mls @ 25 mls/hr 10/30/18 11:08 Dextrose/Water IV .Q10H PRN A.FIB/FLUTTER Protocol 0.5 MG/MIN Nitroglycerin/Dextrose 50 mg/ 250 mls @ 1.5 mls/hr 10/30/18 11:08 10/30/18 12:17 IV Solution IV Not Given .Q24H [facility] 5 MCG/MIN Lactated Ringer's 1,000 mls @ 50 mls/hr 10/30/18 11:08 10/30/18 12:17 Lactated Ringers IV 50 mls/hr .Q20H [facility] Administration Propofol 1,000 mg/ IV Solution 100 mls @ 0 mls/hr 10/30/18 11:08 10/30/18 14:15 IV 0 mcg/kg/min .Q0M [facility] 0 mls/hr Titration Protocol Titrate Insulin Human Regular 100 unit 101 mls @ 0 mls/hr 10/30/18 11:08 / Sodium Chloride IV .Q0M [facility] Protocol Per Protocol Ketorolac Tromethamine 15 mg 10/30/18 14:30 10/30/18 14:36 Toradol IVP 11/03/18 14:21 15 mg Q6HR [facility] Administration Magnesium Hydroxide 2,400 mg 10/31/18 10:55 Milk Of Magnesia PO BID PRN Constipation Metoclopramide HCl 10 mg 10/30/18 11:08 Reglan IVP Q4H PRN Nausea And Vomiting Metoprolol Tartrate 12.5 mg 10/31/18 09:00 Lopressor PO BID [facility] Miscellaneous Information 1 each 10/30/18 11:08 Magnesium Per Protocol MISCELLANE DAILY PRN Per Protocol Protocol Miscellaneous Information 1 each 10/30/18 11:08 Phosphorus Per Protocol MISCELLANE DAILY PRN Per Protocol Protocol Miscellaneous Information 1 each 10/30/18 11:08 Potassium Per Protocol MISCELLANE DAILY PRN Per Protocol Protocol Mupirocin 1 applic 10/30/18 21:00 Bactroban Oint NASAL 11/02/18 21:01 BID [facility] Ondansetron HCl 4 mg 10/30/18 11:08 Zofran IVP Q6HR PRN Nausea And Vomiting Oxycodone HCl 10 mg 10/30/18 11:08 10/30/18 14:21 Oxyir PO 10/31/18 11:09 10 mg Q4H PRN Administration Severe Pain Oxycodone HCl 5 mg 10/30/18 11:08 Oxyir PO 10/31/18 11:09 Q4H PRN Moderate Pain Pantoprazole Sodium 40 mg 10/31/18 09:00 Protonix IVP DAILY [facility] Senna/Docusate Sodium 2 each 10/31/18 21:00 Senokot-S PO HS [facility] Sodium Chloride 10 ml 10/30/18 21:00 Saline Flush IV BID [facility] Intake and Output 10/29/18 10/30/18 10/30/18 22:59 06:59 14:59 Intake Total 493.191 Output Total 3160 Balance -2666.809 Intake: IV 474 ACETAMINOPHEN IV (For NPO 100 ) 1,000 mg In Empty Bag 1 bag @ 400 mls/hr IVPB Q6HR [facility] Rx#:[id number] Albumin Human 5% 250 ml 125 In Empty Bag 1 bag @ 250 mls/hr IVPB Q1HR PRN Rx#: [id number] CO/CI 40 Lactated Ringers 1,000 ml 150 @ 50 mls/hr IV .Q20H [facility] Rx#:[id number] Pressure Bag 27 Intake, IV Titration 19.191 Amount Clevidipine Butyrate 25 3.8 mg In Empty Bag 1 bag @ 1 MG/HR 2 mls/hr IV .Q24H [facility] Rx#:[id number] Propofol 1,000 mg In 15.391 Empty Bag 1 bag @ Titrate IV .Q0M [facility] Rx#: [id number] Output: Chest Tube Drainage 125 Left Pleural/Mediastinal 125 Urine 1035 Estimated Blood Loss 1999 Other: Voiding Method Indwelling Catheter 10/30/18 11:50 10/30/18 11:50 Assessment and Plan (1) Status post aortic valve replacement Current Visit: Yes Status: Acute Code(s): Z95.2 - PRESENCE OF PROSTHETIC HEART VALVE SNOMED Code(s): 1321265903661 (2) S/P left atrial appendage ligation Current Visit: Yes Status: Acute Code(s): Z98.890 - OTHER SPECIFIED POSTPROCEDURAL STATES SNOMED Code(s): 519852120 Plan: Continue current medical therapy. No arrhythmias noted at this time. Blood pr essure is reasonably controlled. We'll follow
[2018-10-30] MEDS ORDERED: DEXMEDETOMIDINE/0.9% NACL(PMX) 400 MCG in EMPTY BAG 1 BAG IV SCH (15:00)
--- NOTE | 2018-10-30 15:21 | CONS ---
CONSULTATION This is a 53-year-old male who is status post aortic valve replacement for aortic stenosis and bicuspid aortic valve. A mechanical valve was placed by Dr. Ferrer today. He is now back in the ICU. We made some ventilator adjustments. The patient is currently on an AC mode rate of 16, tidal volume 450, FiO2 50%, PEEP of 5. Blood gases were done on 100% and that is why the FiO2 was dropped. In addition, the patient had some mild hypercarbia and the rate was increased from 12-16. The FiO2 was also dropped from 100% down 50%. The PEEP levels were not changed. Anyway, the patient does apparently have a history of chronic tobacco dependence. He may have some underlying COPD, although his bedside spirometry actually looked very good. Other than that, having chronic back and neck pain and apparently having some anxiety issues, the patient is relatively healthy. He has no significant surgical history other than some cosmetic surgery. He is a current everyday smoker. Uses alcohol occasionally. No illicit drug use. FAMILY HISTORY: The patient apparently has family history of CHF and COPD. MEDICATIONS: He has no known home medications. ALLERGIES: He was not allergic to any medications before this surgery. Anyway, he is resting comfortably back in the ICU. Chest x-ray looks pretty good. The blood gases have been analyzed and the ventilator has been adjusted accordingly. As I mentioned, Dr. Ferrer was the one who did the surgery. REVIEW OF SYSTEMS: Cannot be obtained as the patient is currently still sedated on the ventilator. PHYSICAL EXAMINATION: Current vital signs include a temperature 96.1, heart rate 65, respiratory rate 18, blood pressure 147/84 and a mean of 105 and a PA pressure of 40/23, a central venous pressure of 20 and a saturation of 94% on 50% FiO2 and 5 of PEEP. Currently, the patient is sedated. HEENT examination is grossly unremarkable. There is an orally placed endotracheal tube and NG tube. NECK: Supple. Full range of motion. Cardiovascular examination reveals regular rhythm and rate. Heart sounds appear normal. S1, S2 normal. No S3. No S4. No murmur. LUNGS: Clear. Breath sounds equal. ABDOMEN: Soft. No bowel sounds are heard. Extremities are intact. No cyanosis, clubbing, or edema. Skin without rash. Neurologic examination could not be adequately assessed. Chest x-ray is reviewed. It shows typical postsurgical changes. The endotracheal tube and NG tube are properly placed. LABS: Reviewed. White count 15, hemoglobin 11.4, hematocrit 33, platelet count 112,000. Blood gases initially show PO2 of 311, pCO2 56, pH 7.31. Based on these blood gases, the FiO2 was dropped to 50% and a rate was increased from AC mode of 12 to an AC mode of 16. Tidal volume and PEEP were not changed. The patient's sodium 137, potassium 4.4, chloride 107, CO2 is 26, anion gap is 4, BUN and creatinine were 17 and 0.81. The rest of the labs look okay. Medications are reviewed. He is on updrafts with albuterol and Atrovent q.4 hours around the clock. ASSESSMENT: 1. History of aortic stenosis secondary to a bicuspid aortic valve, postop day number zero, status post mechanical valve placement. 2. History of chronic tobacco use, without evidence of significant chronic lung disease on bedside spirometry. 3. History of anxiety. 4. No other major medical problems noted. PLAN: The patient is already on updrafts with albuterol and Atrovent q.4. Those will continue. Ventilator changes have been made. Rate was increased from 12-16 and FiO2 was dropped from 100-50 percent. Hopefully we will be able to get the patient weaned within a 6 hour window. No additional recommendations are made. Chest x-ray is reviewed. The rest of the medications are reviewed. We will continue to follow. Prognosis is good. MMODL / IJN: [id number] /
[2018-10-30 15:25] LABS: Basophils % (A) 0 %; Eosinophils # (A) 0.3 k/uL (0-0.7); Eosinophils % (A) 1 %; HCT 38.1 % (39.0-53.0); HGB 13.5 gm/dL (13.0-17.5); Lymphocytes # (A) 1.4 k/uL (1.0-4.8); Lymphocytes % (A) 7 %; MCH 32.1 pg (25.0-35.0); MCHC 35.4 g/dL (31.0-37.0); MCV 90.8 fL (80.0-100.0); Mean Platelet Volume 7.6; Monocytes # (A) 1.6 k/uL (0-1.0); Monocytes % (A) 7 %; Neutrophils # (A) 17.9 k/uL (1.3-7.7); Neutrophils % (A) 84 %; Platelet Count 155 k/uL (150-450); RDW 12.5 % (11.5-15.5); WBC 21.3 k/uL (3.8-10.6)
[2018-10-30 16:02] LABS: Glucose,Whole Blood 118 mg/dL (75-99)
[2018-10-30] MEDS: ceFAZolin IN SWFI 2 GM/20 ML SYRINGE IVP SCH (16:43)
[2018-10-30 16:45] LABS: Glucose,Whole Blood 114 mg/dL (75-99)
[2018-10-30 18:28] LABS: Basophils % (A) 0 %; Eosinophils # (A) 0.1 k/uL (0-0.7); Eosinophils % (A) 0 %; HCT 34.5 % (39.0-53.0); HGB 12.1 gm/dL (13.0-17.5); Lymphocytes # (A) 0.6 k/uL (1.0-4.8); Lymphocytes % (A) 4 %; MCH 32.1 pg (25.0-35.0); MCV 91.5 fL (80.0-100.0); Mean Platelet Volume 7.4; Monocytes # (A) 0.7 k/uL (0-1.0); Monocytes % (A) 5 %; Neutrophils # (A) 14.4 k/uL (1.3-7.7); Neutrophils % (A) 91 %; Platelet Count 132 k/uL (150-450); RBC 3.77 m/uL (4.30-5.90); RDW 12.5 % (11.5-15.5); WBC 15.9 k/uL (3.8-10.6)
[2018-10-30 18:37] LABS: Glucose,Whole Blood 113 mg/dL (75-99)
[2018-10-30 18:37] LABS: Glucose,Whole Blood 105 mg/dL (75-99)
[2018-10-30] MEDS: HEPARIN SODIUM,PORCINE 5,000 UNIT/ML 1 ML VIAL SQ SCH (19:18)
[2018-10-30 20:38] LABS: Glucose,Whole Blood 123 mg/dL (75-99)
[2018-10-30 21:25] LABS: Glucose,Whole Blood 104 mg/dL (75-99)
[2018-10-30] MEDS: MUPIROCIN 2% OINT 22 GM TUBE NASAL SCH (21:35)
[2018-10-30 23:12] LABS: Glucose,Whole Blood 96 mg/dL (75-99)
[2018-10-30 23:12] LABS: Glucose,Whole Blood 122 mg/dL (75-99)
[2018-10-31] MEDS: ACETAMINOPHEN IV (For NPO) 1,000 MG in EMPTY BAG 1 BAG IVPB SCH ×3 (00:32→11:42)
[2018-10-31] MEDS: HEPARIN SODIUM,PORCINE 5,000 UNIT/ML 1 ML VIAL SQ SCH ×3 (00:32→15:00)
[2018-10-31] MEDS: ceFAZolin IN SWFI 2 GM/20 ML SYRINGE IVP SCH ×2 (00:32→08:37)
[2018-10-31] MEDS: KETOROLAC 30 MG/ML 1 ML VIAL IVP SCH ×4 (00:35→18:26)
[2018-10-31 01:05] LABS: Glucose,Whole Blood 104 mg/dL (75-99)
[2018-10-31 02:33] LABS: Glucose,Whole Blood 115 mg/dL (75-99)
[2018-10-31] MEDS: ALBUMIN HUMAN 5% 250 ML in EMPTY BAG 1 BAG IVPB PRN ×2 (03:20→07:01)
[2018-10-31 04:51] LABS: Ionized Calcium 4.7 mg/dL (4.5-5.3)
[2018-10-31 04:55] LABS: Glucose,Whole Blood 109 mg/dL (75-99)
[2018-10-31 05:01] LABS: Albumin 3.4 g/dL (3.5-5.0); Calcium 8.2 mg/dL (8.4-10.2); Magnesium 2.2 mg/dL (1.6-2.3); Potassium 4.7 mmol/L (3.5-5.1); Total Bilirubin 1.9 mg/dL (0.2-1.3); Total Protein 5.4 g/dL (6.3-8.2)
[2018-10-31 05:26] LABS: Basophils % (A) 0 %; Eosinophils # (A) 0.3 k/uL (0-0.7); Eosinophils % (A) 3 %; HCT 30.6 % (39.0-53.0); HGB 10.7 gm/dL (13.0-17.5); Lymphocytes # (A) 1.5 k/uL (1.0-4.8); Lymphocytes % (A) 15 %; MCH 31.7 pg (25.0-35.0); MCHC 34.9 g/dL (31.0-37.0); Monocytes # (A) 0.7 k/uL (0-1.0); Monocytes % (A) 8 %; Neutrophils % (A) 73 %; Platelet Count 108 k/uL (150-450); RBC 3.36 m/uL (4.30-5.90); RDW 12.6 % (11.5-15.5); WBC 9.6 k/uL (3.8-10.6)
[2018-10-31 06:24] LABS: Glucose,Whole Blood 111 mg/dL (75-99)
--- NOTE | 2018-10-31 07:19 | PN ---
PROGRESS NOTE DATE OF SERVICE: 10/31/2018 This is a 53-year-old male, postop day #1 status post aortic valve replacement for aortic stenosis and bicuspid aortic valve. He had a mechanical valve placed by Dr. Ferrer yesterday. He was back in the ICU and extubated within a couple of hours. The patient seems to be doing relatively well this morning. He is on O2 at 3 L by nasal cannula and receiving IV Precedex at 0.2. He is getting lactated Ringer's at 50 mL an hour. The patient is feeling well. Having some pain in the chest area from the surgery. Other than that, he has no major complaints. I look at his chest x-ray today, it looks relatively clear save for some postsurgical changes and some minimal atelectasis at the bases. The patient does have a history of chronic tobacco dependence, but appears not to have much in the way of COPD. In addition, he has some issues with chronic back and neck pain and some anxiety issues. He seems to be doing relatively well on the Precedex. Other than that, there was no major issues to report. He really did very well overnight according to the nurses and is doing very well on his incentive spirometry. Current vital signs reveal a temperature which is 97.7, a heart rate 73, respiratory rate 12, blood pressure 106/40 with a mean of 62 and a saturation of 96% on 3 L. His central venous pressure is 8 cm of water, which is normal. His pulmonary artery pressure is 20/10. He appears in no acute distress. Sitting at the bedside. Nasal O2 in place. There is no respiratory issues to speak of. HEENT examination is grossly unremarkable. Neck is supple. Full range of motion. No adenopathy or thyromegaly. Neck veins are flat. Cardiovascular examination reveals a regular rhythm and rate. Heart rate mid 70s. S1, S2 normal. There was no murmur. Lungs clear, breath sounds equal. There is no wheezes, rhonchi, or crackles. Abdomen is soft. Bowel sounds are heard. Extremities are intact. No cyanosis, clubbing, or edema. Skin without rash. Neurologic examination is brief but nonfocal. White count is 9.6, hemoglobin 10.7, hematocrit 30.6, platelet count 108,000. His sodium was 134, potassium 4.7, chloride 104, CO2 is 26, anion gap is normal at 4, BUN and creatinine were 20 and 1.09. Albumin 3.4. Chest x-ray shows some minor atelectasis at the bases. Chest tube is noted. Medications are reviewed. ASSESSMENT: 1. Postoperative day #1 status post aortic valve replacement with mechanical aortic valve secondary to aortic stenosis/bicuspid aortic valve. 2. History of chronic tobacco use without evidence of significant chronic lung disease. 3. History of anxiety. 4. History of chronic back and neck pain. PLAN: The patient is doing very well. The patient has been weaned down to note nasal O2 at 3 L. He is receiving IV Precedex at 0.2. This will be weaned down the 0.1 and in a couple hours to be turned off. He is getting lactated Ringer's at 50 mL an hour. The patient is encouraged to take deep breaths, cough clear secretions and continue to use incentive spirometry q.1 hour while awake. Continue with updrafts q.i.d. and p.r.n. Additional recommendations and suggestions are forthcoming. His overall prognosis is good. MMODL / IJN: [id number] /
[2018-10-31] MEDS: IPRATROPIUM-ALBUTEROL 3 ML NEB INHALATION SCH ×4 (07:24→20:23)
[2018-10-31] MEDS: ATORVASTATIN 40 MG TAB PO SCH (07:51)
[2018-10-31] MEDS: ASPIRIN 325 MG TAB PO SCH (07:51)
[2018-10-31] MEDS: MUPIROCIN 2% OINT 22 GM TUBE NASAL SCH ×2 (07:52→20:13)
[2018-10-31 08:01] LABS: Glucose,Whole Blood 173 mg/dL (75-99)
--- NOTE | 2018-10-31 08:13 | XR ---
EXAMINATION TYPE: XR chest 1V portable DATE OF EXAM: 10/31/2018 COMPARISON: 10/30/2018 HISTORY: SOB, Follow Up FINDINGS: Endotracheal and NG tube have been removed. Remaining Indwelling tubes and catheters are unchanged. No change in bibasilar linear atelectasis. Stable appearance of the cardio-mediastinal structures at this time. Pleural effusion unchanged. IMPRESSION: 1. Stable portable chest. Clinical correlation and follow up until resolution is recommended.
[2018-10-31] MEDS: LACTATED RINGERS 1,000 ML IV SCH (08:18)
--- NOTE | 2018-10-31 08:38 | P.PN ---
Subjective Progress Note Date: 10/31/18 Principal diagnosis: Aortic stenosis, bicuspid aortic valve, history of non-ST elevated mojgan infarction, syncope, paroxysmal atrial fibrillation and current tobacco dependence. POD #1 aortic valve replacement with a 21 mm On-X mechanical valve, epi-aortic ultrasonography, ligation left atrial appendage with a 35 mm Atriclip. The patient is sitting up to the bedside chair. He is in no acute distress. He is complaining of pain 5 out of 10 to his chest tube insertion sites. Denies any complaints of shortness of breath. He is hemodynamically stable. Oxygen saturations are 95% on 2 L nasal cannula. He is not on any inotropic or pressor support at this time. Hgb this morning is 10.7, platelets 108, BUN 20, creatinine 1.09. He is achieving 2000 mL on his incentive spirometry. Objective - Vital Signs Vital signs: Vital Signs Temp 97.7 F 10/31/18 04:00 Pulse 75 10/31/18 07:26 Resp 16 10/31/18 07:00 BP 90/54 10/31/18 07:00 Pulse Ox 93 L 10/31/18 07:00 Intake & Output 10/30/18 10/31/18 10/31/18 18:59 06:59 18:59 Intake Total 160.520 9149.842 311.505 Output Total 3580 870 100 Balance -2766.972 1231.842 211.505 Weight 70.7 kg Intake: IV 740 1399 59 ACETAMINOPHEN IV (For NPO 100 200 ) 1,000 mg In Empty Bag 1 bag @ 400 mls/hr IVPB Q6HR YANNICK Rx#:[id number] Albumin Human 5% 250 ml 125 500 In Empty Bag 1 bag @ 250 mls/hr IVPB Q1HR PRN Rx#: [id number] CO/CI 70 50 Lactated Ringers 1,000 ml 350 550 50 @ 50 mls/hr IV .Q20H YANNICK Rx#:[id number] Pressure Bag 63 99 9 Intake, IV Titration 73.028 402.842 252.505 Amount ACETAMINOPHEN IV (For NPO 100 ) 1,000 mg In Empty Bag 1 bag @ 400 mls/hr IVPB Q6HR YANNICK Rx#:[id number] Albumin Human 25% 50 ml @ 250 250 Per Protocol IV ONCE ONE Rx#:[id number] Clevidipine Butyrate 25 53.8 mg In Empty Bag 1 bag @ 1 MG/HR 2 mls/hr IV .Q24H YANNICK Rx#:[id number] Dexmedetomidine/0.9% NaCl 3.837 52.842 2.505 (Pmx) 400 mcg In Empty Bag 1 bag @ Titrate IV . Q0M YANNICK Rx#:[id number] Propofol 1,000 mg In 15.391 Empty Bag 1 bag @ Titrate IV .Q0M YANNICK Rx#: [id number] Oral 300 Output: Chest Tube Drainage 285 360 70 Left Pleural/Mediastinal 285 360 70 Urine 1295 510 30 Estimated Blood Loss 1999 Other: Voiding Method Indwelling Catheter Indwelling Catheter ABP, PAP, CO, CI - Last Documented Arterial Blood Pressure 82/44 Pulmonary Artery Pressure 23/11 Cardiac Output 4.8 Cardiac Index 2.8 - Constitutional General appearance: Present: cooperative, no acute distress, thin - Respiratory Details: Lung sounds are essentially clear throughout, diminished bilateral bases. Respirations are symmetrical and nonlabored. Oxygen saturation are 95% on 2 L nasal cannula. He is achieving 2000 mL on his incentive spirometry. Mediastin al and left pleural chest tubes remained to low continuous wall suction -20 cm H2O. No air leak is present. Draining thin serosanguineous drainage. 750 mL output since surgery, 350 mL output in the last 8 hours. - Cardiovascular Details: Regular rhythm and rate. S1 and S2 present, valve click present. Sternum is stable. Bedside telemetry showing normal sinus rhythm heart rate 74. No edema present. Right IJ Cordis with Oldham-Essence catheter in place. Current cardiac output 4.8, cardiac index 2.8, PA pressures 25/11, CVP 9 mmHg. Heart hugger is in place and he is demonstrating appropriate use. Right radial arterial line in place and functioning. Knee-high CORTNEY hose and sequential compression devices in place to his bilateral lower extremities. Atrial and ventricular epicardial pacemaker wires in place and connected to a backup pacemaker generator with a VVI 50. - Gastrointestinal Gastrointestinal Comment(s): Abdomen soft, nontender and nondistended. Hypoactive bowel sounds all 4 abdominal quadrants. No guarding or rigidity. Tolerating clear liquid diet. Negative flatus. - Genitourinary Genitourinary Comment(s): Paula catheter for accurate I&O. Draining clear marlon urine. 325 mL output in the last 8 hours. - Integumentary Integumentary Comment(s): Skin is warm and dry. No clubbing or cyanosis is present. Midline sternal incision is clean, dry and approximated. No drainage or redness is present. G auze dressing is clean, dry and intact. - Neurologic Neurologic: Present: CNII-XII intact - Musculoskeletal Musculoskeletal: Present: gait normal, strength equal bilaterally - Psychiatric Psychiatric: Present: A&O x's 3, appropriate affect, intact judgment & insight - Allied health notes Allied health notes reviewed: nursing - Labs CBC & Chem 7: 10/31/18 05:07 10/31/18 04:30 Labs: Abnormal Lab Results - Last 24 Hours (Table) 10/24/18 10/30/18 10/30/18 Range/Units 09:25 07:57 08:21 WBC (3.8-10.6) k/uL RBC (4.30-5.90) m/uL Hgb (13.0-17.5) gm/dL Hct (39.0-53.0) % Plt Count (150-450) k/uL Neutrophils # (1.3-7.7) k/uL Lymphocytes # (1.0-4.8) k/uL Monocytes # (0-1.0) k/uL ABG pH (7.35-7.45) ABG pCO2 49 H (35-45) mmHg ABG pO2 >420 H 316 H (83-108) mmHg ABG HCO3 27 H 29 H (21-25) mmol/L ABG Total CO2 29 H 31 H (19-24) mmol/L ABG O2 Saturation 100.0 H 100.0 H (94-97) % ABG Hematocrit (34.0-46.0) % ABG Sodium (135-146) mmol/L ABG Potassium (3.4-4.5) mmol/L ABG Glucose (75-99) mg/dL Hemoglobin (13.0-17.5) gm/dL Sodium (137-145) mmol/L POC Glucose (mg/dL) (75-99) mg/dL Calcium (8.4-10.2) mg/dL Ionized Calcium Yulia (4.5-5.3) mg/dL Magnesium (1.6-2.3) mg/dL Total Bilirubin (0.2-1.3) mg/dL Total Protein (6.3-8.2) g/dL Albumin (3.5-5.0) g/dL Arterial Blood Potassium (3.4-4.5) mmol/L Arterial Blood Glucose (75-99) mg/dL Crossmatch See Detail 10/30/18 10/30/18 10/30/18 Range/Units 08:32 09:02 10:30 WBC (3.8-10.6) k/uL RBC (4.30-5.90) m/uL Hgb (13.0-17.5) gm/dL Hct (39.0-53.0) % Plt Count (150-450) k/uL Neutrophils # (1.3-7.7) k/uL Lymphocytes # (1.0-4.8) k/uL Monocytes # (0-1.0) k/uL ABG pH (7.35-7.45) ABG pCO2 46 H (35-45) mmHg ABG pO2 255 H 309 H 321 H (83-108) mmHg ABG HCO3 26 H 26 H (21-25) mmol/L ABG Total CO2 27 H 27 H 26 H (19-24) mmol/L ABG O2 Saturation 100.0 H 100.0 H 100.0 H (94-97) % ABG Hematocrit 29 L 29 L 29 L (34.0-46.0) % ABG Sodium 134 L 134 L (135-146) mmol/L ABG Potassium 4.7 H 4.6 H (3.4-4.5) mmol/L ABG Glucose 104 H 107 H 103 H (75-99) mg/dL Hemoglobin 9.4 L 9.4 L 9.3 L (13.0-17.5) gm/dL Sodium (137-145) mmol/L POC Glucose (mg/dL) (75-99) mg/dL Calcium (8.4-10.2) mg/dL Ionized Calcium Yulia (4.5-5.3) mg/dL Magnesium (1.6-2.3) mg/dL Total Bilirubin (0.2-1.3) mg/dL Total Protein (6.3-8.2) g/dL Albumin (3.5-5.0) g/dL Arterial Blood Potassium 4.7 H 4.6 H (3.4-4.5) mmol/L Arterial Blood Glucose 104 H 107 H 103 H (75-99) mg/dL Crossmatch 10/30/18 10/30/18 10/30/18 Range/Units 11:50 11:50 12:15 WBC 15.0 H (3.8-10.6) k/uL RBC 3.60 L (4.30-5.90) m/uL Hgb 11.4 L D (13.0-17.5) gm/dL Hct 33.0 L (39.0-53.0) % Plt Count 112 L D (150-450) k/uL Neutrophils # 12.9 H (1.3-7.7) k/uL Lymphocytes # (1.0-4.8) k/uL Monocytes # (0-1.0) k/uL ABG pH 7.31 L (7.35-7.45) ABG pCO2 56 H (35-45) mmHg ABG pO2 311 H (83-108) mmHg ABG HCO3 28 H (21-25) mmol/L ABG Total CO2 30 H (19-24) mmol/L ABG O2 Saturation 99.7 H (94-97) % ABG Hematocrit (34.0-46.0) % ABG Sodium (135-146) mmol/L ABG Potassium (3.4-4.5) mmol/L ABG Glucose (75-99) mg/dL Hemoglobin (13.0-17.5) gm/dL Sodium (137-145) mmol/L POC Glucose (mg/dL) (75-99) mg/dL Calcium (8.4-10.2) mg/dL Ionized Calcium Yulia 5.4 H (4.5-5.3) mg/dL Magnesium 4.2 H (1.6-2.3) mg/dL Total Bilirubin (0.2-1.3) mg/dL Total Protein 4.8 L (6.3-8.2) g/dL Albumin 2.7 L (3.5-5.0) g/dL Arterial Blood Potassium (3.4-4.5) mmol/L Arterial Blood Glucose (75-99) mg/dL Crossmatch 10/30/18 10/30/18 10/30/18 Range/Units 14:06 14:54 15:14 WBC 21.3 H (3.8-10.6) k/uL RBC 4.20 L (4.30-5.90) m/uL Hgb (13.0-17.5) gm/dL Hct 38.1 L (39.0-53.0) % Plt Count (150-450) k/uL Neutrophils # 17.9 H (1.3-7.7) k/uL Lymphocytes # (1.0-4.8) k/uL Monocytes # 1.6 H (0-1.0) k/uL ABG pH (7.35-7.45) ABG pCO2 (35-45) mmHg ABG pO2 (83-108) mmHg ABG HCO3 (21-25) mmol/L ABG Total CO2 (19-24) mmol/L ABG O2 Saturation (94-97) % ABG Hematocrit (34.0-46.0) % ABG Sodium (135-146) mmol/L ABG Potassium (3.4-4.5) mmol/L ABG Glucose (75-99) mg/dL Hemoglobin (13.0-17.5) gm/dL Sodium (137-145) mmol/L POC Glucose (mg/dL) 101 H 118 H (75-99) mg/dL Calcium (8.4-10.2) mg/dL Ionized Calcium Yulia (4.5-5.3) mg/dL Magnesium (1.6-2.3) mg/dL Total Bilirubin (0.2-1.3) mg/dL Total Protein (6.3-8.2) g/dL Albumin (3.5-5.0) g/dL Arterial Blood Potassium (3.4-4.5) mmol/L Arterial Blood Glucose (75-99) mg/dL Crossmatch 10/30/18 10/30/18 10/30/18 Range/Units 16:33 17:23 18:12 WBC (3.8-10.6) k/uL RBC (4.30-5.90) m/uL Hgb (13.0-17.5) gm/dL Hct (39.0-53.0) % Plt Count (150-450) k/uL Neutrophils # (1.3-7.7) k/uL Lymphocytes # (1.0-4.8) k/uL Monocytes # (0-1.0) k/uL ABG pH (7.35-7.45) ABG pCO2 (35-45) mmHg ABG pO2 (83-108) mmHg ABG HCO3 (21-25) mmol/L ABG Total CO2 (19-24) mmol/L ABG O2 Saturation (94-97) % ABG Hematocrit (34.0-46.0) % ABG Sodium (135-146) mmol/L ABG Potassium (3.4-4.5) mmol/L ABG Glucose (75-99) mg/dL Hemoglobin (13.0-17.5) gm/dL Sodium (137-145) mmol/L POC Glucose (mg/dL) 114 H 105 H 113 H (75-99) mg/dL Calcium (8.4-10.2) mg/dL Ionized Calcium Yulia (4.5-5.3) mg/dL Magnesium (1.6-2.3) mg/dL Total Bilirubin (0.2-1.3) mg/dL Total Protein (6.3-8.2) g/dL Albumin (3.5-5.0) g/dL Arterial Blood Potassium (3.4-4.5) mmol/L Arterial Blood Glucose (75-99) mg/dL Crossmatch 10/30/18 10/30/18 10/30/18 Range/Units 18:14 20:12 21:13 WBC 15.9 H (3.8-10.6) k/uL RBC 3.77 L (4.30-5.90) m/uL Hgb 12.1 L (13.0-17.5) gm/dL Hct 34.5 L (39.0-53.0) % Plt Count 132 L (150-450) k/uL Neutrophils # 14.4 H (1.3-7.7) k/uL Lymphocytes # 0.6 L (1.0-4.8) k/uL Monocytes # (0-1.0) k/uL ABG pH (7.35-7.45) ABG pCO2 (35-45) mmHg ABG pO2 (83-108) mmHg ABG HCO3 (21-25) mmol/L ABG Total CO2 (19-24) mmol/L ABG O2 Saturation (94-97) % ABG Hematocrit (34.0-46.0) % ABG Sodium (135-146) mmol/L ABG Potassium (3.4-4.5) mmol/L ABG Glucose (75-99) mg/dL Hemoglobin (13.0-17.5) gm/dL Sodium (137-145) mmol/L POC Glucose (mg/dL) 123 H 104 H (75-99) mg/dL Calcium (8.4-10.2) mg/dL Ionized Calcium Yulia (4.5-5.3) mg/dL Magnesium (1.6-2.3) mg/dL Total Bilirubin (0.2-1.3) mg/dL Total Protein (6.3-8.2) g/dL Albumin (3.5-5.0) g/dL Arterial Blood Potassium (3.4-4.5) mmol/L Arterial Blood Glucose (75-99) mg/dL Crossmatch 10/30/18 10/31/18 10/31/18 Range/Units 22:09 00:29 02:07 WBC (3.8-10.6) k/uL RBC (4.30-5.90) m/uL Hgb (13.0-17.5) gm/dL Hct (39.0-53.0) % Plt Count (150-450) k/uL Neutrophils # (1.3-7.7) k/uL Lymphocytes # (1.0-4.8) k/uL Monocytes # (0-1.0) k/uL ABG pH (7.35-7.45) ABG pCO2 (35-45) mmHg ABG pO2 (83-108) mmHg ABG HCO3 (21-25) mmol/L ABG Total CO2 (19-24) mmol/L ABG O2 Saturation (94-97) % ABG Hematocrit (34.0-46.0) % ABG Sodium (135-146) mmol/L ABG Potassium (3.4-4.5) mmol/L ABG Glucose (75-99) mg/dL Hemoglobin (13.0-17.5) gm/dL Sodium (137-145) mmol/L POC Glucose (mg/dL) 122 H 104 H 115 H (75-99) mg/dL Calcium (8.4-10.2) mg/dL Ionized Calcium Yulia (4.5-5.3) mg/dL Magnesium (1.6-2.3) mg/dL Total Bilirubin (0.2-1.3) mg/dL Total Protein (6.3-8.2) g/dL Albumin (3.5-5.0) g/dL Arterial Blood Potassium (3.4-4.5) mmol/L Arterial Blood Glucose (75-99) mg/dL Crossmatch 10/31/18 10/31/18 10/31/18 Range/Units 04:18 04:30 05:07 WBC (3.8-10.6) k/uL RBC 3.36 L (4.30-5.90) m/uL Hgb 10.7 L (13.0-17.5) gm/dL Hct 30.6 L (39.0-53.0) % Plt Count 108 L (150-450) k/uL Neutrophils # (1.3-7.7) k/uL Lymphocytes # (1.0-4.8) k/uL Monocytes # (0-1.0) k/uL ABG pH (7.35-7.45) ABG pCO2 (35-45) mmHg ABG pO2 (83-108) mmHg ABG HCO3 (21-25) mmol/L ABG Total CO2 (19-24) mmol/L ABG O2 Saturation (94-97) % ABG Hematocrit (34.0-46.0) % ABG Sodium (135-146) mmol/L ABG Potassium (3.4-4.5) mmol/L ABG Glucose (75-99) mg/dL Hemoglobin (13.0-17.5) gm/dL Sodium 134 L (137-145) mmol/L POC Glucose (mg/dL) 109 H (75-99) mg/dL Calcium 8.2 L (8.4-10.2) mg/dL Ionized Calcium Yulia (4.5-5.3) mg/dL Magnesium (1.6-2.3) mg/dL Total Bilirubin 1.9 H (0.2-1.3) mg/dL Total Protein 5.4 L (6.3-8.2) g/dL Albumin 3.4 L (3.5-5.0) g/dL Arterial Blood Potassium (3.4-4.5) mmol/L Arterial Blood Glucose (75-99) mg/dL Crossmatch 10/31/18 Range/Units 06:01 WBC (3.8-10.6) k/uL RBC (4.30-5.90) m/uL Hgb (13.0-17.5) gm/dL Hct (39.0-53.0) % Plt Count (150-450) k/uL Neutrophils # (1.3-7.7) k/uL Lymphocytes # (1.0-4.8) k/uL Monocytes # (0-1.0) k/uL ABG pH (7.35-7.45) ABG pCO2 (35-45) mmHg ABG pO2 (83-108) mmHg ABG HCO3 (21-25) mmol/L ABG Total CO2 (19-24) mmol/L ABG O2 Saturation (94-97) % ABG Hematocrit (34.0-46.0) % ABG Sodium (135-146) mmol/L ABG Potassium (3.4-4.5) mmol/L ABG Glucose (75-99) mg/dL Hemoglobin (13.0-17.5) gm/dL Sodium (137-145) mmol/L POC Glucose (mg/dL) 111 H (75-99) mg/dL Calcium (8.4-10.2) mg/dL Ionized Calcium Yulia (4.5-5.3) mg/dL Magnesium (1.6-2.3) mg/dL Total Bilirubin (0.2-1.3) mg/dL Total Protein (6.3-8.2) g/dL Albumin (3.5-5.0) g/dL Arterial Blood Potassium (3.4-4.5) mmol/L Arterial Blood Glucose (75-99) mg/dL Crossmatch - Imaging and Cardiology Chest x-ray: report reviewed, image reviewed Assessment and Plan (1) Status post mechanical aortic valve replacement Current Visit: Yes Status: Acute Code(s): Z95.2 - PRESENCE OF PROSTHETIC HEART VALVE SNOMED Code(s): 655774920870995 (2) S/P left atrial appendage ligation Current Visit: Yes Status: Acute Code(s): Z98.890 - OTHER SPECIFIED POSTPROCEDURAL STATES SNOMED Code(s): 072803038 (3) Severe aortic stenosis Current Visit: No Status: Acute Code(s): I35.0 - NONRHEUMATIC AORTIC (VALVE) STENOSIS SNOMED Code(s): 36427282 (4) Syncope Current Visit: No Status: Acute Code(s): R55 - SYNCOPE AND COLLAPSE SNOMED Code(s): 982715219 (5) Paroxysmal A-fib Current Visit: No Status: Resolved Code(s): I48.0 - PAROXYSMAL ATRIAL FIBRILLATION SNOMED Code(s): 410547807 (6) Tobacco dependence due to cigarettes Current Visit: Yes Status: Acute Code(s): F17.210 - NICOTINE DEPENDENCE, CIGARETTES, UNCOMPLICATED SNOMED Code(s): 66825328525933042 Plan: 1. Continue aspirin, statin, Plavix, and beta kimberly. Will increase metoprolol tartrate as tolerated. 2. Increase activity as tolerated. PT/OT and cardiac rehab consulted. 3. Wean oxygen as tolerated, encourage incentive spirometry use 10 times every hour while awake. 4. Bronchodilators per pulmonology. 5. Pain control with current medication regimen. Toradol added. 6. Will monitor daily labs and x-rays. Electrolyte replacement per protocol. 7. Insulin management per primary care service. 8. GI prophylaxis with Protonix, DVT prophylaxis with subcu heparin and SCDs. So he is 9. Discontinue Oldham-Essence catheter, keep right IJ Cordis in place to continue CVP monitoring. 10. Will keep chest tubes, arterial line, Paula catheter for another 24 hours. 11. More recommendations to follow based on patient's clinical course. Time with Patient: Greater than 30
[2018-10-31] MEDS ORDERED: CLOPIDOGREL 75 MG TAB PO SCH (09:00)
[2018-10-31] MEDS ORDERED: METOPROLOL TARTRATE 12.5 MG TAB PO SCH (09:00)
[2018-10-31] MEDS ORDERED: PANTOPRAZOLE 40 MG/10 ML VIAL IVP SCH (09:00)
--- NOTE | 2018-10-31 10:10 | P.PN ---
Progress Note - Text Progress Note Date: 10/31/18 This is a 53-year-old gentleman who was recently admitted to the hospital with syncope and was diagnosed to have severe aortic stenosis. Patient underwent aortic valve replacement, Yesterday. Patient is sitting in the chair. Complaining of moderate chest pain when he takes a deep breath. However, pain has improved compared to yesterday. Patient is maintaining sinus rhythm. His lab values showed hemoglobin 10.7. Lungs appeared to be clear. Heart is regular. Overall, patient's is showing good progression. New Lab values: Showed hemoglobin of 10.7. His lites are normal with mild low sodium of 134. Chest x-ray: Stable. Chest showing some bilateral atelectasis and some pleural effusion. Unchanged from the previous chest x-ray. GENERAL EXAM: Patient is alert and oriented and in mild distress from chest pain HEENT: Normocephalic. Normal reaction of pupils, equal size, normal range of extraocular motion. No erythema or exudates in the throat. NECK: No masses, no nuchal rigidity. CHEST: No chest wall deformity. LUNGS: Equal air entry with no crackles or wheeze. Diminished S1 at bases HEART: S1 and S2 normal with no audible mumurs or gallops. Regular rhythm, femorals equal on both sides.. ABDOMEN: No hepatosplenomegaly, normal bowel sounds, no guarding or rigidity. SKIN: No rashes CENTRAL NERVOUS SYSTEM: No focal deficits. EXTREMITIES: No cyanosis, clubbing or edema. Final impression: #1. Status post aortic valve replacement #3. History of syncope. #3. Postoperative anemia. #4. Postoperative pain Plan: Continue current medical therapy. Increase activity. Incentive spirometry
[2018-10-31] MEDS ORDERED: MAGNESIUM HYDROXIDE 2,400 MG/10 ML CUP PO PRN (10:55)
[2018-10-31] MEDS ORDERED: BISACODYL 10 MG SUPP RECTAL PRN (10:55)
[2018-10-31] MEDS: NITROGLYCERIN-D5W PMX 50 MG in DEXTROSE/WATER 1 250ML.BAG IV SCH (11:17)
[2018-10-31 11:27] VITALS: BMI 26.7
[2018-10-31] MEDS: INSULIN ASPART (NovoLOG) 100 UNIT/ML VIAL SQ SCH ×3 (11:50→21:12)
[2018-10-31 11:53] LABS: Glucose,Whole Blood 97 mg/dL (75-99)
[2018-10-31] MEDS ORDERED: METOPROLOL TARTRATE 12.5 MG TAB PO STA (14:28)
--- NOTE | 2018-10-31 14:41 | P.CONS ---
History of Present Illness - Reason for Consult Consult date: 10/30/18 medical management post aortic Valve replacement Requesting physician: Duane Ferrer - Chief Complaint chest pain - History of Present Illness 53-year-old male with no significant PMH initially presented to ED on 10/08/2018 for shortness of breath, chest pain and syncope along with decreased exercise tolerance. Patient apparently had a syncopal episode while changing a tire on the day of admission. Echocardiogram at that time showed EF between 55 and 60% with moder ate LVH and severe aortic stenosis. ALVARO performed during that admission showed severe aortic stenosis as well as mild to moderate aortic regurgitation. Patient underwent cardiac catheterization for elevated troponins and was found to have normal coronary arteries. Cardiothoracic surgery was consulted at that time and recommended dental clearance prior to surgery. Patient underwent aortic valve replacement with a 21 mm On-X mechanical valve, epi-aortic ultrasonography, ligation of the left atrial appendage with 35 mm Atricure clip on 10/30/2018. Patient was noted to have lost about 400 mL of blood during his procedure. Patient was seen and examined. No acute events overnight. Patient complains of chest pain, with deep inspiration at the site of chest tube and sternotomy scar. He also reports shortness of breath due to the chest pain. He denies any palpitations. No nausea or vomiting. No fever or chills. Review of Systems Pertinent positives and ROS is presented in the HPI. All other ROS has been reviewed and is negative. Past Medical History Past Medical History: Musculoskeletal Disorder, Syncope Additional Past Medical History / Comment(s): right knee pain, recent SOB w/exertion & recent episode of syncope History of Any Multi-Drug Resistant Organisms: None Reported Past Surgical History: Heart Catheterization Additional Past Surgical History / Comment(s): cosmetic surg on ears as child, ALVARO Past Anesthesia/Blood Transfusion Reactions: Postoperative Nausea & Vomiting (PO NV) Smoking Status: Current some day smoker - Past Family History Father Family Medical History: Congestive Heart Failure (CHF) Additional Family Medical History / Comment(s): HF FATHER STILL ALIVE Mother Family Medical History: COPD Medications and Allergies Home Medications Medication Instructions Recorded Confirmed Type Aspirin 81 mg PO BID 10/24/18 10/30/18 History Famotidine [Pepcid] 20 mg PO DAILY 10/24/18 10/30/18 History Melatonin 10 mg PO HS PRN 10/24/18 10/30/18 History Mupirocin 2% Oint [Bactroban 2% 1 applic NASAL BID 10/24/18 10/30/18 History Oint] Aspirin 324 mg PO ONCE 10/30/18 10/30/18 History Allergies Allergy/AdvReac Type Severity Reaction Status Date / Time No Known Allergies Allergy Verified 10/30/18 12:21 Physical Exam Vitals: Vital Signs Temp Pulse Pulse Resp BP BP BP 10/30/18 16:15 90 16 105/75 10/30/18 16:10 86 18 10/30/18 16:01 80 16 10/30/18 16:00 37.2 F L 89 29 H 101/61 10/30/18 15:45 78 21 87/58 10/30/18 15:30 70 10 L 126/75 10/30/18 15:15 98 23 130/74 10/30/18 15:00 94 19 130/84 10/30/18 14:45 97 24 114/59 10/30/18 14:30 91 18 115/98 10/30/18 14:15 94 25 H 113/66 10/30/18 14:00 74 27 H 112/67 10/30/18 13:45 69 21 114/67 10/30/18 13:30 68 21 113/64 10/30/18 13:15 68 21 112/64 10/30/18 13:00 96.1 F L 65 18 147/84 10/30/18 12:45 66 19 147/84 10/30/18 12:30 66 17 147/84 10/30/18 12:15 60 13 106/60 10/30/18 12:00 96.6 F L 64 12 106/60 10/30/18 11:51 63 12 10/30/18 06:12 97.6 F 58 L 16 121/80 132/77 Pulse Ox 10/30/18 16:15 94 L 10/30/18 16:10 10/30/18 16:01 10/30/18 16:00 91 L 10/30/18 15:45 91 L 10/30/18 15:30 86 L 10/30/18 15:15 91 L 10/30/18 15:00 91 L 10/30/18 14:45 87 L 10/30/18 14:30 93 L 10/30/18 14:15 92 L 03/11/19 14:00 90 L 10/30/18 13:45 90 L 10/30/18 13:30 92 L 10/30/18 13:15 93 L 10/30/18 13:00 94 L 10/30/18 12:45 94 L 10/30/18 12:30 96 10/30/18 12:15 100 10/30/18 12:00 100 10/30/18 11:51 10/30/18 06:12 97 Intake and Output 10/30/18 10/30/18 10/30/18 06:59 14:59 22:59 Intake Total 493.191 191.837 Output Total 3160 250 Balance -2666.809 -58.163 Intake: IV 474 138 ACETAMINOPHEN IV (For NPO 100 ) 1,000 mg In Empty Bag 1 bag @ 400 mls/hr IVPB Q6HR [facility] Rx#:[id number] Albumin Human 5% 250 ml 125 In Empty Bag 1 bag @ 250 mls/hr IVPB Q1HR PRN Rx#: [id number] CO/CI 40 20 Lactated Ringers 1,000 ml 150 100 @ 50 mls/hr IV .Q20H [facility] Rx#:[id number] Pressure Bag 27 18 Intake, IV Titration 19.191 53.837 Amount Clevidipine Butyrate 25 3.8 50 mg In Empty Bag 1 bag @ 1 MG/HR 2 mls/hr IV .Q24H [facility] Rx#:[id number] Dexmedetomidine/0.9% NaCl 3.837 (Pmx) 400 mcg In Empty Bag 1 bag @ Titrate IV . Q0M [facility] Rx#:[id number] Propofol 1,000 mg In 15.391 Empty Bag 1 bag @ Titrate IV .Q0M [facility] Rx#: [id number] Output: Chest Tube Drainage 125 90 Left Pleural/Mediastinal 125 90 Urine 1035 160 Estimated Blood Loss 1999 Other: Voiding Method Indwelling Catheter ABP, PAP, CO, CI - Last 8 Hours Arterial Blood Pressure 126/72 Arterial Blood Pressure 124/58 Arterial Blood Pressure 109/52 Arterial Blood Pressure 99/40 Arterial Blood Pressure 153/59 Arterial Blood Pressure 152/55 Arterial Blood Pressure 123/52 Arterial Blood Pressure 156/64 Arterial Blood Pressure 151/62 Arterial Blood Pressure 148/59 Arterial Blood Pressure 141/54 Arterial Blood Pressure 140/51 Arterial Blood Pressure 139/52 Arterial Blood Pressure 143/53 Arterial Blood Pressure 143/53 Arterial Blood Pressure 137/73 Arterial Blood Pressure 92/44 Pulmonary Artery Pressure 36/14 Pulmonary Artery Pressure 30/18 Pulmonary Artery Pressure 30/14 Pulmonary Artery Pressure 19/8 Pulmonary Artery Pressure 31/18 Pulmonary Artery Pressure 27/16 Pulmonary Artery Pressure 31/19 Pulmonary Artery Pressure 37/18 Pulmonary Artery Pressure 38/25 Pulmonary Artery Pressure 44/30 Pulmonary Artery Pressure 47/29 Pulmonary Artery Pressure 44/23 Pulmonary Artery Pressure 42/22 Pulmonary Artery Pressure 40/23 Pulmonary Artery Pressure 40/23 Pulmonary Artery Pressure 41/22 Pulmonary Artery Pressure 33/21 Pulmonary Artery Pressure 41/4 Cardiac Output 5.4 Cardiac Output 7.9 Cardiac Output 7.9 Cardiac Output 7.9 Cardiac Output 7.9 Cardiac Output 5.1 Cardiac Output 5.1 Cardiac Output 5.1 Cardiac Output 5.1 Cardiac Output 5.1 Cardiac Output 5.1 Cardiac Output 4.3 Cardiac Output 4.3 Cardiac Output 4.6 Cardiac Output 4.3 Cardiac Output 4.3 Cardiac Output 4.3 Cardiac Output 4.3 Cardiac Index 3.2 Cardiac Index 2.6 Cardiac Index 2.7 Cardiac Index 2.5 General: [non toxic], [no distress], [appears at stated age] Derm: [warm], [dry] Head: [atraumatic], [normocephalic], [symmetric], [right IJ] Eyes: [EOMI], [no lid lag], [anicteric sclera] Mouth: [no lip lesion], [mucus membranes moist] Cardiovascular: [S1S2 reg], [no murmur], [positive DP pulse bilateral], [sternal scar dressing clean dry and intact, mediastinal/chest tube with 800 mL output] Lungs: [CTA bilateral], [no rhonchi, no rales] , [no accessory muscle use] Abdominal: [soft], [ nontender to palpation], [no guarding], [no appreciable organomegaly] Ext: [no gross muscle atrophy], [no edema], [no contractures] Neuro: [no focal neuro deficits] Psych: [Alert], [oriented], [appropriate affect] Results CBC & Chem 7: 10/31/18 05:07 10/31/18 04:30 Labs: Abnormal Lab Results - Last 24 Hours (Table) 10/24/18 10/30/18 10/30/18 Range/Units 09:25 07:57 08:21 WBC (3.8-10.6) k/uL RBC (4.30-5.90) m/uL Hgb (13.0-17.5) gm/dL Hct (39.0-53.0) % Plt Count (150-450) k/uL Neutrophils # (1.3-7.7) k/uL Monocytes # (0-1.0) k/uL ABG pH (7.35-7.45) ABG pCO2 49 H (35-45) mmHg ABG pO2 >420 H 316 H (83-108) mmHg ABG HCO3 27 H 29 H (21-25) mmol/L ABG Total CO2 29 H 31 H (19-24) mmol/L ABG O2 Saturation 100.0 H 100.0 H (94-97) % ABG Hematocrit (34.0-46.0) % ABG Sodium (135-146) mmol/L ABG Potassium (3.4-4.5) mmol/L ABG Glucose (75-99) mg/dL Hemoglobin (13.0-17.5) gm/dL POC Glucose (mg/dL) (75-99) mg/dL Ionized Calcium Yulia (4.5-5.3) mg/dL Magnesium (1.6-2.3) mg/dL Total Protein (6.3-8.2) g/dL Albumin (3.5-5.0) g/dL Arterial Blood Potassium (3.4-4.5) mmol/L Arterial Blood Glucose (75-99) mg/dL Crossmatch See Detail 10/30/18 10/30/18 10/30/18 Range/Units 08:32 09:02 10:30 WBC (3.8-10.6) k/uL RBC (4.30-5.90) m/uL Hgb (13.0-17.5) gm/dL Hct (39.0-53.0) % Plt Count (150-450) k/uL Neutrophils # (1.3-7.7) k/uL Monocytes # (0-1.0) k/uL ABG pH (7.35-7.45) ABG pCO2 46 H (35-45) mmHg ABG pO2 255 H 309 H 321 H (83-108) mmHg ABG HCO3 26 H 26 H (21-25) mmol/L ABG Total CO2 27 H 27 H 26 H (19-24) mmol/L ABG O2 Saturation 100.0 H 100.0 H 100.0 H (94-97) % ABG Hematocrit 29 L 29 L 29 L (34.0-46.0) % ABG Sodium 134 L 134 L (135-146) mmol/L ABG Potassium 4.7 H 4.6 H (3.4-4.5) mmol/L ABG Glucose 104 H 107 H 103 H (75-99) mg/dL Hemoglobin 9.4 L 9.4 L 9.3 L (13.0-17.5) gm/dL POC Glucose (mg/dL) (75-99) mg/dL Ionized Calcium Yulia (4.5-5.3) mg/dL Magnesium (1.6-2.3) mg/dL Total Protein (6.3-8.2) g/dL Albumin (3.5-5.0) g/dL Arterial Blood Potassium 4.7 H 4.6 H (3.4-4.5) mmol/L Arterial Blood Glucose 104 H 107 H 103 H (75-99) mg/dL Crossmatch 10/30/18 10/30/18 10/30/18 Range/Units 11:50 11:50 12:15 WBC 15.0 H (3.8-10.6) k/uL RBC 3.60 L (4.30-5.90) m/uL Hgb 11.4 L D (13.0-17.5) gm/dL Hct 33.0 L (39.0-53.0) % Plt Count 112 L D (150-450) k/uL Neutrophils # 12.9 H (1.3-7.7) k/uL Monocytes # (0-1.0) k/uL ABG pH 7.31 L (7.35-7.45) ABG pCO2 56 H (35-45) mmHg ABG pO2 311 H (83-108) mmHg ABG HCO3 28 H (21-25) mmol/L ABG Total CO2 30 H (19-24) mmol/L ABG O2 Saturation 99.7 H (94-97) % ABG Hematocrit (34.0-46.0) % ABG Sodium (135-146) mmol/L ABG Potassium (3.4-4.5) mmol/L ABG Glucose (75-99) mg/dL Hemoglobin (13.0-17.5) gm/dL POC Glucose (mg/dL) (75-99) mg/dL Ionized Calcium Yulia 5.4 H (4.5-5.3) mg/dL Magnesium 4.2 H (1.6-2.3) mg/dL Total Protein 4.8 L (6.3-8.2) g/dL Albumin 2.7 L (3.5-5.0) g/dL Arterial Blood Potassium (3.4-4.5) mmol/L Arterial Blood Glucose (75-99) mg/dL Crossmatch 10/30/18 10/30/18 10/30/18 Range/Units 14:06 14:54 15:14 WBC 21.3 H (3.8-10.6) k/uL RBC 4.20 L (4.30-5.90) m/uL Hgb (13.0-17.5) gm/dL Hct 38.1 L (39.0-53.0) % Plt Count (150-450) k/uL Neutrophils # 17.9 H (1.3-7.7) k/uL Monocytes # 1.6 H (0-1.0) k/uL ABG pH (7.35-7.45) ABG pCO2 (35-45) mmHg ABG pO2 (83-108) mmHg ABG HCO3 (21-25) mmol/L ABG Total CO2 (19-24) mmol/L ABG O2 Saturation (94-97) % ABG Hematocrit (34.0-46.0) % ABG Sodium (135-146) mmol/L ABG Potassium (3.4-4.5) mmol/L ABG Glucose (75-99) mg/dL Hemoglobin (13.0-17.5) gm/dL POC Glucose (mg/dL) 101 H 118 H (75-99) mg/dL Ionized Calcium Yulia (4.5-5.3) mg/dL Magnesium (1.6-2.3) mg/dL Total Protein (6.3-8.2) g/dL Albumin (3.5-5.0) g/dL Arterial Blood Potassium (3.4-4.5) mmol/L Arterial Blood Glucose (75-99) mg/dL Crossmatch 10/30/18 Range/Units 16:33 WBC (3.8-10.6) k/uL RBC (4.30-5.90) m/uL Hgb (13.0-17.5) gm/dL Hct (39.0-53.0) % Plt Count (150-450) k/uL Neutrophils # (1.3-7.7) k/uL Monocytes # (0-1.0) k/uL ABG pH (7.35-7.45) ABG pCO2 (35-45) mmHg ABG pO2 (83-108) mmHg ABG HCO3 (21-25) mmol/L ABG Total CO2 (19-24) mmol/L ABG O2 Saturation (94-97) % ABG Hematocrit (34.0-46.0) % ABG Sodium (135-146) mmol/L ABG Potassium (3.4-4.5) mmol/L ABG Glucose (75-99) mg/dL Hemoglobin (13.0-17.5) gm/dL POC Glucose (mg/dL) 114 H (75-99) mg/dL Ionized Calcium Yulia (4.5-5.3) mg/dL Magnesium (1.6-2.3) mg/dL Total Protein (6.3-8.2) g/dL Albumin (3.5-5.0) g/dL Arterial Blood Potassium (3.4-4.5) mmol/L Arterial Blood Glucose (75-99) mg/dL Crossmatch Assessment and Plan Assessment: Assessment and Plan 1. Aortic stenosis with aortic regurgitation status post aortic valve replacement 2. Leukocytosis 3. ASCVD risk 4. DVT and GI prophylaxis 1. As confirmed on echocardiogram, ALVARO, cardiac catheterization during September admission. Patient is status postaortic valve replacement postop day 0. Chest x-ray shows postoperative changes of CABG. Albumin 2.7, replaced by cardiothoracic surgery. Magnesium 4.2 and ionized calcium 5.4, replace via IV if necessary. Aggressive bowel regimen with Dulcolax suppository as needed for constipation. Cefazolin 2 g IV 3 times a day for 3 total doses. Pain management with [place] or Percocet as needed. DuoNeb as needed for shortness of breath or wheezing. Continue metoprolol 12.5 mg by mouth twice a day. Daily CBC. Telemetry monitoring. Monitoring of vitals. Head of bed elevation. Incentive spirometry. Will follow cardiology, cardiothoracic surgery recommendations. 2. Leukocytosis of 21.3 with neutrophilia. Likely reactive from surgery. No signs of infection. Daily CBC. 3. Continue aspirin 325 mg by mouth daily, Lipitor 40 mg by mouth daily. 4. Heparin 5000 units subcutaneously 3 times a day. Protonix 40 mg IV daily. Patient on Precedex for anxiety. Patient recovering well from aortic valve replacement. Is pending clinical improvement. Cardio thoracic surgery and cardiology on board. Thank you for this consult.
[2018-10-31] MEDS: HYDROcodone/APAP 5-325MG 1 EACH TAB PO PRN ×2 (15:00→20:12)
--- NOTE | 2018-10-31 15:27 | P.PN ---
Subjective Progress Note Date: 10/31/18 Principal diagnosis: status post AV replacement Patient was seen and examined. No acute events overnight. Patient complains of chest pain, only with deep inspiration, at the site of chest tubes. [place]-Essence and [place] catheter discontinued. Chest tubes draining around 700 mL cc since surgery. Patient reports that he is able to ambulate the halls without difficulty. Objective - Vital Signs Vital signs: Vital Signs Temp 98.0 F 10/31/18 12:00 Pulse 90 10/31/18 14:30 Resp 43 H 10/31/18 08:00 BP 107/71 10/31/18 14:30 Pulse Ox 96 10/31/18 14:30 Intake & Output 10/30/18 10/31/18 10/31/18 18:59 06:59 18:59 Intake Total 416.203 3530.842 1225.505 Output Total 3580 870 220 Balance -2766.972 6413.952 1035.505 Weight 70.7 kg 70.7 kg Intake: IV 740 1399 413 ACETAMINOPHEN IV (For NPO 100 200 ) 1,000 mg In Empty Bag 1 bag @ 400 mls/hr IVPB Q6HR [facility] Rx#:[id number] Albumin Human 5% 250 ml 125 500 In Empty Bag 1 bag @ 250 mls/hr IVPB Q1HR PRN Rx#: [id number] CO/CI 70 50 Lactated Ringers 1,000 ml 350 550 350 @ 50 mls/hr IV .Q20H [facility] Rx#:[id number] Pressure Bag 63 99 63 Intake, IV Titration 73.028 402.842 252.505 Amount ACETAMINOPHEN IV (For NPO 100 ) 1,000 mg In Empty Bag 1 bag @ 400 mls/hr IVPB Q6HR [facility] Rx#:[id number] Albumin Human 25% 50 ml @ 250 250 Per Protocol IV ONCE ONE Rx#:[id number] Clevidipine Butyrate 25 53.8 mg In Empty Bag 1 bag @ 1 MG/HR 2 mls/hr IV .Q24H [facility] Rx#:[id number] Dexmedetomidine/0.9% NaCl 3.837 52.842 2.505 (Pmx) 400 mcg In Empty Bag 1 bag @ Titrate IV . Q0M [facility] Rx#:[id number] Propofol 1,000 mg In 15.391 Empty Bag 1 bag @ Titrate IV .Q0M [facility] Rx#: [id number] Oral 300 560 Output: Chest Tube Drainage 285 360 70 Left Pleural/Mediastinal 285 360 70 Urine 1295 510 150 Estimated Blood Loss 1999 Other: Voiding Method Indwelling Catheter Indwelling Catheter Urinal ABP, PAP, CO, CI - Last Documented Arterial Blood Pressure 140/76 Pulmonary Artery Pressure 23/13 Cardiac Output 6.1 Cardiac Index 2.8 - Exam General: [non toxic], [appears dyspneic due to pain], [appears at stated age] Derm: [warm], [dry] Head: [atraumatic], [normocephalic], [symmetric] Eyes: [EOMI], [no lid lag], [anicteric sclera] Mouth: [no lip lesion], [mucus membranes moist] Cardiovascular: [S1S2 reg], [no murmur], [positive DP pulse bilateral], [sternal scar dressing clean dry and intact, mediastinal/chest tube with 700 mL output], [heart hugger in place] Lungs: [CTA bilateral], [no rhonchi, no rales] , [no accessory muscle use] Abdominal: [soft], [ nontender to palpation], [no guarding], [no appreciable org anomegaly] Ext: [no gross muscle atrophy], [no edema], [no contractures] Neuro: [no focal neuro deficits] Psych: [Alert], [oriented], [appropriate affect] - Labs CBC & Chem 7: 10/31/18 05:07 10/31/18 04:30 Labs: Abnormal Lab Results - Last 24 Hours (Table) 10/24/18 10/30/18 10/30/18 Range/Units 09:25 14:54 15:14 WBC 21.3 H (3.8-10.6) k/uL RBC 4.20 L (4.30-5.90) m/uL Hgb (13.0-17.5) gm/dL Hct 38.1 L (39.0-53.0) % Plt Count (150-450) k/uL Neutrophils # 17.9 H (1.3-7.7) k/uL Lymphocytes # (1.0-4.8) k/uL Monocytes # 1.6 H (0-1.0) k/uL Sodium (137-145) mmol/L POC Glucose (mg/dL) 118 H (75-99) mg/dL Calcium (8.4-10.2) mg/dL Total Bilirubin (0.2-1.3) mg/dL Total Protein (6.3-8.2) g/dL Albumin (3.5-5.0) g/dL Crossmatch See Detail 10/30/18 10/30/18 10/30/18 Range/Units 16:33 17:23 18:12 WBC (3.8-10.6) k/uL RBC (4.30-5.90) m/uL Hgb (13.0-17.5) gm/dL Hct (39.0-53.0) % Plt Count (150-450) k/uL Neutrophils # (1.3-7.7) k/uL Lymphocytes # (1.0-4.8) k/uL Monocytes # (0-1.0) k/uL Sodium (137-145) mmol/L POC Glucose (mg/dL) 114 H 105 H 113 H (75-99) mg/dL Calcium (8.4-10.2) mg/dL Total Bilirubin (0.2-1.3) mg/dL Total Protein (6.3-8.2) g/dL Albumin (3.5-5.0) g/dL Crossmatch 10/30/18 10/30/18 10/30/18 Range/Units 18:14 20:12 21:13 WBC 15.9 H (3.8-10.6) k/uL RBC 3.77 L (4.30-5.90) m/uL Hgb 12.1 L (13.0-17.5) gm/dL Hct 34.5 L (39.0-53.0) % Plt Count 132 L (150-450) k/uL Neutrophils # 14.4 H (1.3-7.7) k/uL Lymphocytes # 0.6 L (1.0-4.8) k/uL Monocytes # (0-1.0) k/uL Sodium (137-145) mmol/L POC Glucose (mg/dL) 123 H 104 H (75-99) mg/dL Calcium (8.4-10.2) mg/dL Total Bilirubin (0.2-1.3) mg/dL Total Protein (6.3-8.2) g/dL Albumin (3.5-5.0) g/dL Crossmatch 10/30/18 10/31/18 10/31/18 Range/Units 22:09 00:29 02:07 WBC (3.8-10.6) k/uL RBC (4.30-5.90) m/uL Hgb (13.0-17.5) gm/dL Hct (39.0-53.0) % Plt Count (150-450) k/uL Neutrophils # (1.3-7.7) k/uL Lymphocytes # (1.0-4.8) k/uL Monocytes # (0-1.0) k/uL Sodium (137-145) mmol/L POC Glucose (mg/dL) 122 H 104 H 115 H (75-99) mg/dL Calcium (8.4-10.2) mg/dL Total Bilirubin (0.2-1.3) mg/dL Total Protein (6.3-8.2) g/dL Albumin (3.5-5.0) g/dL Crossmatch 10/31/18 10/31/18 10/31/18 Range/Units 04:18 04:30 05:07 WBC (3.8-10.6) k/uL RBC 3.36 L (4.30-5.90) m/uL Hgb 10.7 L (13.0-17.5) gm/dL Hct 30.6 L (39.0-53.0) % Plt Count 108 L (150-450) k/uL Neutrophils # (1.3-7.7) k/uL Lymphocytes # (1.0-4.8) k/uL Monocytes # (0-1.0) k/uL Sodium 134 L (137-145) mmol/L POC Glucose (mg/dL) 109 H (75-99) mg/dL Calcium 8.2 L (8.4-10.2) mg/dL Total Bilirubin 1.9 H (0.2-1.3) mg/dL Total Protein 5.4 L (6.3-8.2) g/dL Albumin 3.4 L (3.5-5.0) g/dL Crossmatch 10/31/18 10/31/18 Range/Units 06:01 07:50 WBC (3.8-10.6) k/uL RBC (4.30-5.90) m/uL Hgb (13.0-17.5) gm/dL Hct (39.0-53.0) % Plt Count (150-450) k/uL Neutrophils # (1.3-7.7) k/uL Lymphocytes # (1.0-4.8) k/uL Monocytes # (0-1.0) k/uL Sodium (137-145) mmol/L POC Glucose (mg/dL) 111 H 173 H (75-99) mg/dL Calcium (8.4-10.2) mg/dL Total Bilirubin (0.2-1.3) mg/dL Total Protein (6.3-8.2) g/dL Albumin (3.5-5.0) g/dL Crossmatch Assessment and Plan Assessment: Assessment and Plan 1. Aortic stenosis with aortic regurgitation status post aortic valve replacement 2. Hyperglycemia 3. Anemia likely secondary to acute blood loss from surgery 4. Leukocytosis - resolved 5. ASCVD risk 6. DVT and GI prophylaxis 1. As confirmed on echocardiogram, ALVARO, cardiac catheterization during September admission. Patient is status postaortic valve replacement postop day 0. Chest x-ray shows postoperative changes of CABG. Albumin 2.7, replaced by cardiothoracic surgery. Magnesium 4.2 and ionized calcium 5.4, replace via IV if necessary. Aggressive bowel regimen with Dulcolax suppository as needed for constipation. Cefazolin 2 g IV 3 times a day for 3 total doses. Pain management with [place] or Percocet as needed. DuoNeb as needed for shortness of breath or wheezing. Continue metoprolol 12.5 mg by mouth twice a day. Daily CBC. T elemetry monitoring. Monitoring of vitals. Head of bed elevation. Incentive spirometry. Will follow cardiology, cardiothoracic surgery recommendations. 2. Anticipated elevation of blood glucose due to stress from surgery. This could potentially cause delayed wound healing. Faccj-jx-smoy glucose 97. Insulin sliding scale. Regular Accu-Cheks. Hypoglycemic precautions. 3. Hemoglobin 10.7 from 11.4 on admission. Likely secondary to acute blood loss from surgery. Transfuse if hemoglobin under 7. Daily CBC. 4. Leukocytosis of 21.3 with neutrophilia, resolved today. Likely reactive from surgery. No signs of infection. 5. Continue aspirin 325 mg by mouth daily, Lipitor 40 mg by mouth daily. 6. Heparin 5000 units subcutaneously 3 times a day. Protonix 40 mg IV daily. Patient recovering well from aortic valve replacement. He is pending clinical improvement. Cardio thoracic surgery and cardiology on board. Thank you for this consult.
[2018-10-31 17:41] LABS: Glucose,Whole Blood 116 mg/dL (75-99)
[2018-10-31] MEDS: SENNOSIDES-DOCUSATE SODIUM 1 EACH TAB PO SCH (20:13)
[2018-10-31] MEDS ORDERED: METOPROLOL TARTRATE 25 MG TAB PO SCH (21:00)
[2018-10-31] MEDS: MELATONIN 5 MG TABLET PO SCH (21:12)
[2018-10-31 21:21] LABS: Glucose,Whole Blood 120 mg/dL (75-99)
[2018-11-01] MEDS: HYDROcodone/APAP 5-325MG 1 EACH TAB PO PRN ×6 (01:44→22:01)
[2018-11-01] MEDS: KETOROLAC 30 MG/ML 1 ML VIAL IVP SCH ×5 (01:44→23:29)
[2018-11-01] MEDS: HEPARIN SODIUM,PORCINE 5,000 UNIT/ML 1 ML VIAL SQ SCH ×4 (01:45→23:33)
[2018-11-01 05:04] LABS: Basophils % (A) 0 %; Eosinophils # (A) 0.3 k/uL (0-0.7); Eosinophils % (A) 4 %; HCT 29.3 % (39.0-53.0); HGB 10.1 gm/dL (13.0-17.5); Lymphocytes % (A) 11 %; MCH 32.2 pg (25.0-35.0); MCHC 34.4 g/dL (31.0-37.0); MCV 93.5 fL (80.0-100.0); Mean Platelet Volume 7.9; Monocytes # (A) 0.6 k/uL (0-1.0); Monocytes % (A) 7 %; Neutrophils # (A) 6.9 k/uL (1.3-7.7); Neutrophils % (A) 76 %; Platelet Count 104 k/uL (150-450); RBC 3.14 m/uL (4.30-5.90); RDW 12.7 % (11.5-15.5); WBC 9.1 k/uL (3.8-10.6)
[2018-11-01 05:18] LABS: Ionized Calcium 5.1 mg/dL (4.5-5.3)
[2018-11-01 05:27] LABS: Albumin 3.6 g/dL (3.5-5.0); Potassium 4.6 mmol/L (3.5-5.1); Total Bilirubin 1.2 mg/dL (0.2-1.3); Total Protein 5.7 g/dL (6.3-8.2)
[2018-11-01] MEDS: LACTATED RINGERS 1,000 ML IV SCH (06:17)
[2018-11-01] MEDS: PANTOPRAZOLE 40 MG TABLET PO SCH (06:54)
[2018-11-01 07:18] LABS: Glucose,Whole Blood 160 mg/dL (75-99)
[2018-11-01] MEDS: INSULIN ASPART (NovoLOG) 100 UNIT/ML VIAL SQ SCH ×4 (07:33→20:55)
--- NOTE | 2018-11-01 07:44 | XR ---
EXAMINATION TYPE: XR chest 1V portable DATE OF EXAM: 11/01/2018 COMPARISON: 10/31/2018 HISTORY: Status post cardiac surgery. Follow-up exam. TECHNIQUE: Single frontal view of the chest is obtained. FINDINGS: Left thoracostomy tube is noted. No left residual pneumothorax is seen. The [place]-Essence cath eter and right internal jugular central venous catheter sheath have been removed in the interim. Medi astinal drain remains. Retrocardiac and left midlung platelike subsegmental atelectasis are present. Postoperative changes of the chest are noted. Subtle epicardial pacing lead is seen. No pulmonary vas cular congestion. IMPRESSION: Removal of the right internal jugular central venous catheter/[place]-Essence catheter. Multif ocal atelectasis. No residual pneumothorax with a stable left thoracostomy tube.
[2018-11-01 07:49] LABS: Prothrombin Time 10.3 sec (9.0-12.0)
[2018-11-01] MEDS: IPRATROPIUM-ALBUTEROL 3 ML NEB INHALATION SCH ×4 (08:18→20:53)
[2018-11-01] MEDS: ATORVASTATIN 40 MG TAB PO SCH (08:19)
[2018-11-01] MEDS: MUPIROCIN 2% OINT 22 GM TUBE NASAL SCH ×2 (08:19→22:02)
[2018-11-01] MEDS: METOPROLOL TARTRATE 50 MG TAB PO SCH ×2 (08:19→22:01)
[2018-11-01] MEDS: ASPIRIN 325 MG TAB PO SCH (08:19)
--- NOTE | 2018-11-01 09:36 | P.PN ---
Subjective Progress Note Date: 11/01/18 This is a 53-year-old gentleman with history of syncope and severe aortic stenosis who had aortic valve replacement. Patient had a mechanical valve. Patient seemed to be doing better. Chest pain is intermittent but seems to be gradually improving. Chest tube is going to be taken out today. Vital signs are stable. Maintaining sinus rhythm. Lab values showed hemoglobin of 10.1. Elect lites are within normal limits. His creatinine is 1.1. Chest x-ray showed platelike it atelectasis is present. No pneumothorax of CHF. GENERAL EXAM: Patient is alert and oriented and doesn't appear to be in any acute distress HEENT: Normocephalic. Normal reaction of pupils, equal size, normal range of extraocular motion. No erythema or exudates in the throat. NECK: No masses, no nuchal rigidity. CHEST: Postsurgical LUNGS: Equal air entry with no crackles or wheeze. HEART: S1 and S2 normal with no audible mumurs or gallops. Regular rhythm, femorals equal on both sides.. ABDOMEN: No hepatosplenomegaly, normal bowel sounds, no guarding or rigidity. SKIN: No rashes CENTRAL NERVOUS SYSTEM: No focal deficits. EXTREMITIES: No cyanosis, clubbing or edema. Final impression: #1. Status post aortic valve replacement. Plan: Continue with anticoagulation and aspirin. Increase activity. Removal of chest tube today. We'll follow Objective - Vital Signs Vital signs: Vital Signs Temp 97.9 F 11/01/18 08:00 Pulse 87 11/01/18 09:00 Resp 18 11/01/18 09:00 BP 119/66 11/01/18 09:00 Pulse Ox 91 L 11/01/18 09:00 Intake & Output 10/31/18 11/01/18 11/01/18 18:59 06:59 18:59 Intake Total 1420.505 599 Output Total 710 750 250 Balance 710.505 -151 -250 Weight 70.7 kg 69.9 kg Intake: IV 428 149 Lactated Ringers 1,000 ml 320 140 @ 20 mls/hr IV .Q24H [facility] Rx#:[id number] Pressure Bag 108 9 Intake, IV Titration 252.505 Amount Albumin Human 25% 50 ml @ 250 Per Protocol IV ONCE ONE Rx#:[id number] Dexmedetomidine/0.9% NaCl 2.505 (Pmx) 400 mcg In Empty Bag 1 bag @ Titrate IV . Q0M [facility] Rx#:[id number] Oral 740 450 Output: Chest Tube Drainage 310 200 50 Left Pleural/Mediastinal 310 200 50 Urine 400 550 200 Other: Voiding Method Urinal Urinal ABP, PAP, CO, CI - Last Documented Arterial Blood Pressure 137/59 Pulmonary Artery Pressure 23/13 Cardiac Output 6.1 Cardiac Index 2.8 - Labs CBC & Chem 7: 11/01/18 05:00 11/01/18 05:00 Labs: Abnormal Lab Results - Last 24 Hours (Table) 10/31/18 10/31/18 11/01/18 Range/Units 17:17 21:10 05:00 RBC 3.14 L (4.30-5.90) m/uL Hgb 10.1 L (13.0-17.5) gm/dL Hct 29.3 L (39.0-53.0) % Plt Count 104 L (150-450) k/uL BUN (9-20) mg/dL POC Glucose (mg/dL) 116 H 120 H (75-99) mg/dL Total Protein (6.3-8.2) g/dL 11/01/18 11/01/18 Range/Units 05:00 07:06 RBC (4.30-5.90) m/uL Hgb (13.0-17.5) gm/dL Hct (39.0-53.0) % Plt Count (150-450) k/uL BUN 22 H (9-20) mg/dL POC Glucose (mg/dL) 160 H (75-99) mg/dL Total Protein 5.7 L (6.3-8.2) g/dL Assessment and Plan (1) Status post aortic valve replacement Current Visit: Yes Status: Acute Code(s): Z95.2 - PRESENCE OF PROSTHETIC HEART VALVE SNOMED Code(s): 6007886976006 (2) S/P left atrial appendage ligation Current Visit: Yes Status: Acute Code(s): Z98.890 - OTHER SPECIFIED POSTPROCEDURAL STATES SNOMED Code(s): 456740268
--- NOTE | 2018-11-01 09:54 | P.PN ---
Subjective Progress Note Date: 11/01/18 Principal diagnosis: Aortic stenosis, bicuspid aortic valve, history of non-ST elevated mojgan infarction, syncope, preoperative paroxysmal atrial fibrillation and current tobacco dependence. POD #2 aortic valve replacement with a 21 mm On-X mechanical valve, epi-aortic ultrasonography, ligation left atrial appendage with a 35 mm Atriclip. The patient is sitting up to the bedside chair. He is in no acute distress. Currently the patient denies any complaints of pain, states he is much more comfortable this morning. Denies any complaints of shortness of breath. He is afebrile. He is hemodynamically stable and is on no inotropic or pressor support. He reports that he was ambulating in the intensive care unit always yesterday with minimal assistance 2. He is currently on room air with oxygen saturations 91%. Objective - Vital Signs Vital signs: Vital Signs Temp 98.5 F 11/01/18 04:00 Pulse 92 11/01/18 08:27 Resp 23 11/01/18 07:00 BP 133/88 11/01/18 07:00 Pulse Ox 87 L 11/01/18 07:00 Intake & Output 10/31/18 11/01/18 11/01/18 18:59 06:59 18:59 Intake Total 1420.505 599 Output Total 710 750 250 Balance 710.505 -151 -250 Weight 70.7 kg 69.9 kg Intake: IV 428 149 Lactated Ringers 1,000 ml 320 140 @ 20 mls/hr IV .Q24H [facility] Rx#:[id number] Pressure Bag 108 9 Intake, IV Titration 252.505 Amount Albumin Human 25% 50 ml @ 250 Per Protocol IV ONCE ONE Rx#:[id number] Dexmedetomidine/0.9% NaCl 2.505 (Pmx) 400 mcg In Empty Bag 1 bag @ Titrate IV . Q0M [facility] Rx#:[id number] Oral 740 450 Output: Chest Tube Drainage 310 200 50 Left Pleural/Mediastinal 310 200 50 Urine 400 550 200 Other: Voiding Method Urinal Urinal ABP, PAP, CO, CI - Last Documented Arterial Blood Pressure 137/59 Pulmonary Artery Pressure 23/13 Cardiac Output 6.1 Cardiac Index 2.8 - Constitutional General appearance: Present: cooperative, no acute distress, thin - Respiratory Details: Lung sounds are essentially clear throughout, few scattered expiratory wheezes. Respirations are symmetrical and nonlabored. Oxygen saturation are 91% on room air. He is achieving 2250 mL on his incentive spirometry. Mediastinal and left pleural chest tubes in place to low continuous wall suction -20 cm H2O. No air leak is present. Draining thin serosanguineous drainage. 510 mL output in the last 24 hours, 110 mL output in the last 8 hours. - Cardiovascular Details: Regular rhythm and rate. S1 and S2 present, negative for S3, gallop or murmur. Aortic valve click present. Sternum is stable. Bedside telemetry showing normal sinus rhythm heart rate 92. Atrial and ventricular epicardial pacemaker wires in place and grounded. Heart hugger is in place and he is demonstrating appropriate use. Knee-high CORTNEY hose and sequential compression devices in place was bilateral lower extremities. +1 edema to his bilateral feet. - Gastrointestinal Gastrointestinal Comment(s): Abdomen soft, nontender and nondistended. Active bowel sounds all 4 abdominal quadrants. Passing flatus. Tolerating oral intake. No guarding or rigidity. - Genitourinary Genitourinary Comment(s): Voiding clear yellow urine. 350 ml output in the last 8 hours. - Integumentary Integumentary Comment(s): Skin is warm and dry. No clubbing or cyanosis is present. Midline sternal incision is clean, dry and approximated. No drainage or redness is present. Gauze dressing is clean, dry and intact. - Neurologic Neurologic: Present: CNII-XII intact - Musculoskeletal Musculoskeletal: Present: gait normal, strength equal bilaterally - Psychiatric Psychiatric: Present: A&O x's 3, appropriate affect, intact judgment & insight - Allied health notes Allied health notes reviewed: nursing - Labs CBC & Chem 7: 11/01/18 05:00 11/01/18 05:00 Labs: Abnormal Lab Results - Last 24 Hours (Table) 10/31/18 10/31/18 11/01/18 Range/Units 17:17 21:10 05:00 RBC 3.14 L (4.30-5.90) m/uL Hgb 10.1 L (13.0-17.5) gm/dL Hct 29.3 L (39.0-53.0) % Plt Count 104 L (150-450) k/uL BUN (9-20) mg/dL POC Glucose (mg/dL) 116 H 120 H (75-99) mg/dL Total Protein (6.3-8.2) g/dL 11/01/18 11/01/18 Range/Units 05:00 07:06 RBC (4.30-5.90) m/uL Hgb (13.0-17.5) gm/dL Hct (39.0-53.0) % Plt Count (150-450) k/uL BUN 22 H (9-20) mg/dL POC Glucose (mg/dL) 160 H (75-99) mg/dL Total Protein 5.7 L (6.3-8.2) g/dL - Imaging and Cardiology Chest x-ray: report reviewed, image reviewed Assessment and Plan (1) Status post mechanical aortic valve replacement Current Visit: Yes Status: Acute Code(s): Z95.2 - PRESENCE OF PROSTHETIC HEART VALVE SNOMED Code(s): 437715484823976 (2) S/P left atrial appendage ligation Current Visit: Yes Status: Acute Code(s): Z98.890 - OTHER SPECIFIED POSTPROCEDURAL STATES SNOMED Code(s): 442608889 (3) Severe aortic stenosis Current Visit: No Status: Acute Code(s): I35.0 - NONRHEUMATIC AORTIC (VALVE) STENOSIS SNOMED Code(s): 40896905 (4) Syncope Current Visit: No Status: Acute Code(s): R55 - SYNCOPE AND COLLAPSE SNOMED Code(s): 923119336 (5) Paroxysmal A-fib Current Visit: No Status: Resolved Code(s): I48.0 - PAROXYSMAL ATRIAL FIBRILLATION SNOMED Code(s): 146914504 (6) Tobacco dependence due to cigarettes Current Visit: Yes Status: Acute Code(s): F17.210 - NICOTINE DEPENDENCE, CIGARETTES, UNCOMPLICATED SNOMED Code(s): 21007039694844240 Plan: 1. Continue aspirin, statin, and beta kimberly. Will increase metoprolol tartrate to 50 mg by mouth twice a day 2. Increase activity as tolerated. PT/OT and cardiac rehab following. 3. Encourage incentive spirometry use 10 times every hour while awake. 4. Bronchodilators per pulmonology. 5. Pain control with current medication regimen. 6. Will monitor daily labs and x-rays. Electrolyte replacement per protocol. 7. Insulin management per primary care service. 8. GI prophylaxis with Protonix, DVT prophylaxis with subcu heparin and SCDs. 9. Start Coumadin today for his mechanical On-X aortic valve, will give 7.5 mg by mouth 1 today, initial INR this morning 1.0. Goal INR 2.5-3.0 for the first 3 months, then 1.5-2.0 thereafter. 10. Remove epicardial pacemaker wires today, bedrest for 1 hour post pacemaker wire removal. 11. Remove mediastinal chest tube, keep left pleural chest tube in place to low continuous wall suction. 12. We will transfer the patient to [address] [place] [address] cardiac stepdown unit. 13. More recommendations to follow based on patient's clinical course. Discharge planning in place. Atrial and ventricular epicardial pacemaker wires removed without incident at 8:55 AM this morning. The patient will be on bed rest for 1 hour post pacemaker wire removal. Mediastinal chest tube removed without incident today at 9:50 AM. 4 x 4 gauze dressing, Vaseline impregnated gauze to cover and secured with tape. Time with Patient: Greater than 30
--- NOTE | 2018-11-01 09:59 | PN ---
PROGRESS NOTE DATE OF SERVICE: 11/01/2018 A 53-year-old male, postop day #2, status post aortic valve replacement for aortic stenosis and bicuspid aortic valve. The surgery was done by Dr. Duane Ferrer and he had a mechanical valve placed. He was extubated in the ICU within 2 hours post surgery. He is doing very well at this time. He has been not receiving any supplemental oxygen at this time. He is getting lactated Ringer's at 10 mL/hour which will be turned off. He has a bit of pain in the chest area. Chest tubes are going to come out today. He is doing well on his incentive spirometer. Postsurgery, we did place him on Precedex for a short period of time. That was weaned off yesterday. Other than that, he is doing reasonably well. He denies any chest pain or chest discomfort. There is no shortness of breath, cough, wheezing, or phlegm production. He is very anxious, but that is more of a chronic problem. Chest x-ray looks relatively stable as well. His current vital signs are reviewed. Temperature 97.9, heart rate 87, respiratory rate 18, blood pressure 119/66, mean 83, saturations are 91% to 94% on room air. Appears in no acute distress. HEENT examination is grossly unremarkable. Mucous membranes are moist. NECK: Supple. Full range of motion. No adenopathy. No neck vein distention. Cardiovascular examination reveals regular rhythm and rate. Heart rate in the mid 80s. S1, S2 normal. There is no S3, S4, or murmur. Lungs reveal relatively clear breath sounds. No wheezes, rhonchi, or crackles. Abdomen is soft. Bowel sounds are heard. Extremities are intact. There is no cyanosis, clubbing, or edema. Skin without rash. Neurologic examination is brief but nonfocal. Microbiologic studies are negative. Labs are reviewed. White count 9.1, hemoglobin 10.1, hematocrit 29.3, platelet count 104,000. PT, INR is normal. Sodium, potassium, chloride, CO2 all normal. BUN and creatinine were 22 and 1.10. Chest x-ray is showing some postsurgical changes and some minimal bibasilar atelectasis. No residual pneumothorax is noted. Medications are reviewed. ASSESSMENT: 1. Postoperative day #2 status post aortic valve replacement with mechanical aortic valve secondary to aortic stenosis/bicuspid aortic valve. 2. History of chronic tobacco use, without evidence of significant chronic lung disease. 3. History of anxiety. 4. History of chronic back and neck pain. PLAN: The patient is doing relatively well. He has been weaned off of oxygen therapy. His IV is lactated Ringer's at 10 mL an hour. The Precedex was turned off yesterday. He is eating. Chest tube will come out today. Chest x-ray looks relatively stable. We continue to encourage him to use deep breathing, coughing and clearing of secretions and incentive spirometer q.1 hour. No additional recommendations are made. We will continue to follow. Prognosis is generally thought to be good. MMODL / IJN: [id number] /
[2018-11-01 12:04] LABS: Glucose,Whole Blood 98 mg/dL (75-99)
[2018-11-01 16:55] LABS: Glucose,Whole Blood 101 mg/dL (75-99)
--- NOTE | 2018-11-01 17:13 | P.PN ---
Subjective Progress Note Date: 11/01/18 Principal diagnosis: Medical management post CABG Patient was seen and examined. No acute events overnight. Patient reports great improvement in his chest pain after removal of the chest tubes. Atrial and ventricular epicardial pacemaker wires removed, mediastinal chest tube removed today without complication. He denies any shortness of breath or palpitations. No nausea or vomiting. No fever or chills. Patient able to ambulate the hallways in the ICU a couple times today without PT. Objective - Vital Signs Vital signs: Vital Signs Temp 98.6 F 11/01/18 16:00 Pulse 86 11/01/18 17:00 Resp 18 11/01/18 16:00 BP 111/71 11/01/18 16:00 Pulse Ox 90 L 11/01/18 16:00 Intake & Output 10/31/18 11/01/18 11/01/18 18:59 06:59 18:59 Intake Total 1420.505 599 Output Total 710 750 425 Balance 710.505 -151 -425 Weight 70.7 kg 69.9 kg Intake: IV 428 149 Lactated Ringers 1,000 ml 320 140 @ 20 mls/hr IV .Q24H [facility] Rx#:[id number] Pressure Bag 108 9 Intake, IV Titration 252.505 Amount Albumin Human 25% 50 ml @ 250 Per Protocol IV ONCE ONE Rx#:[id number] Dexmedetomidine/0.9% NaCl 2.505 (Pmx) 400 mcg In Empty Bag 1 bag @ Titrate IV . Q0M [facility] Rx#:[id number] Oral 740 450 Output: Chest Tube Drainage 310 200 75 Left Pleural/Mediastinal 310 200 75 Urine 400 550 350 Other: Voiding Method Urinal Urinal Urinal ABP, PAP, CO, CI - Last Documented Arterial Blood Pressure 137/59 Pulmonary Artery Pressure 23/13 Cardiac Output 6.1 Cardiac Index 2.8 - Exam General: [non toxic], [no distress], [appears at stated age] Derm: [warm], [dry] Head: [atraumatic], [normocephalic], [symmetric] Eyes: [EOMI], [no lid lag], [anicteric sclera] Mouth: [no lip lesion], [mucus membranes moist] Cardiovascular: [S1S2 reg], [no murmur], [positive DP pulse bilateral], [sternal scar dressing clean dry and intact, [heart hugger in place] Lungs: [CTA bilateral], [no rhonchi, no rales] , [no accessory muscle use] Abdominal: [soft], [ nontender to palpation], [no guarding], [no appreciable organomegaly] Ext: [no gross muscle atrophy], [no edema], [no contractures] Neuro: [no focal neuro deficits] Psych: [Alert], [oriented], [appropriate affect] - Labs CBC & Chem 7: 11/01/18 05:00 11/01/18 05:00 Labs: Abnormal Lab Results - Last 24 Hours (Table) 10/31/18 10/31/18 11/01/18 Range/Units 17:17 21:10 05:00 RBC 3.14 L (4.30-5.90) m/uL Hgb 10.1 L (13.0-17.5) gm/dL Hct 29.3 L (39.0-53.0) % Plt Count 104 L (150-450) k/uL BUN (9-20) mg/dL POC Glucose (mg/dL) 116 H 120 H (75-99) mg/dL Total Protein (6.3-8.2) g/dL 11/01/18 11/01/18 11/01/18 Range/Units 05:00 07:06 16:43 RBC (4.30-5.90) m/uL Hgb (13.0-17.5) gm/dL Hct (39.0-53.0) % Plt Count (150-450) k/uL BUN 22 H (9-20) mg/dL POC Glucose (mg/dL) 160 H 101 H (75-99) mg/dL Total Protein 5.7 L (6.3-8.2) g/dL Assessment and Plan Assessment: Assessment and Plan 1. Aortic stenosis with aortic regurgitation status post aortic valve replacement 2. Hyperglycemia 3. Anemia likely secondary to acute blood loss from surgery 4. Leukocytosis - resolved 5. ASCVD risk 6. DVT and GI prophylaxis 1. As confirmed on echocardiogram, ALVARO, cardiac catheterization during September admission. Patient is status postaortic valve replacement postop day 0. Chest x-ray shows postoperative changes of CABG. Albumin 2.7, replaced by cardiothoracic surgery. Magnesium 4.2 and ionized calcium 5.4, replace via IV if necessary. Aggressive bowel regimen with Dulcolax suppository as needed for constipation. Cefazolin 2 g IV 3 times a day for 3 total doses. Pain management with Buhl or Percocet as needed. DuoNeb as needed for shortness of breath or wheezing. Increase metoprolol to 50 mg by mouth twice a day. Daily CBC. Tele metry monitoring. Monitoring of vitals. Head of bed elevation. Incentive spirometry. Will follow cardiology, cardiothoracic surgery recommendations. 2. Anticipated elevation of blood glucose due to stress from surgery. This could potentially cause delayed wound healing. [id number] glucose 97. Insulin sliding scale. Regular Accu-Cheks. Hypoglycemic precautions. 3. Hemoglobin 10.1 from 11.4 on admission. Likely secondary to acute blood loss from surgery. Transfuse if hemoglobin under 7. Daily CBC. 4. Leukocytosis of 21.3 with neutrophilia, resolved today. Likely reactive from surgery. No signs of infection. 5. Continue aspirin 325 mg by mouth daily, Lipitor 40 mg by mouth daily. 6. Heparin 5000 units subcutaneously 3 times a day. Protonix 40 mg IV daily. Patient recovering well from aortic valve replacement. He is pending clinical improvement. Cardio thoracic surgery and cardiology on board. We'll start Coumadin today, goal INR 2.5-3. Will discuss with cardiothoracic surgery discharge planning.
[2018-11-01] MEDS ORDERED: WARFARIN 7.5 MG TAB PO ONE (18:00)
[2018-11-01 20:46] LABS: Glucose,Whole Blood 132 mg/dL (75-99)
[2018-11-01] MEDS: SENNOSIDES-DOCUSATE SODIUM 1 EACH TAB PO SCH (22:00)
[2018-11-01] MEDS: MELATONIN 5 MG TABLET PO SCH (22:00)
[2018-11-02] MEDS: HYDROcodone/APAP 5-325MG 1 EACH TAB PO PRN ×5 (02:18→23:09)
[2018-11-02 04:32] LABS: HGB 9.8 gm/dL (13.0-17.5); MCHC 33.8 g/dL (31.0-37.0); MCV 94.7 fL (80.0-100.0); Mean Platelet Volume 8.1; Platelet Count 110 k/uL (150-450); RBC 3.06 m/uL (4.30-5.90); RDW 12.6 % (11.5-15.5); WBC 10.2 k/uL (3.8-10.6)
[2018-11-02 04:44] LABS: Prothrombin Time 10.6 sec (9.0-12.0)
[2018-11-02 04:55] LABS: Anion Gap 6 mmol/L; Blood Urea Nitrogen 20 mg/dL (9-20); Calcium 8.8 mg/dL (8.4-10.2); Carbon Dioxide 27 mmol/L (22-30); Chloride 105 mmol/L (98-107); Glucose 91 mg/dL (74-99); Potassium 4.6 mmol/L (3.5-5.1); Sodium 138 mmol/L (137-145)
[2018-11-02] MEDS: KETOROLAC 30 MG/ML 1 ML VIAL IVP SCH ×4 (05:47→23:10)
--- NOTE | 2018-11-02 06:37 | XR ---
EXAMINATION TYPE: XR chest 2V DATE OF EXAM: 11/02/2018 COMPARISON: Chest x-ray from yesterday and older studies. HISTORY: Post open cardiac surgery. TECHNIQUE: Frontal and lateral views of the chest are obtained. FINDINGS: There is interval removal of left-sided chest tube and mediastinal drainage catheter, no p neumothorax is evident bilaterally. There is new small right pleural effusion with blunting of right lateral costophrenic angle. Tiny left pleural effusion is seen with blunting of posterior costophreni c angle cardiac. Silhouette size is stable and upper limits of normal with atherosclerotic aorta. Sep juliana closure device over left heart is redemonstrated. Overlying sternal wires are again seen. Persist ent retrocardiac and left hilar opacity is noted. Osseous structures are intact. Overlying EKG leads are redemonstrated. IMPRESSION: Interval removal of mediastinal drainage catheter and left-sided chest tube. No pneumoth orax is evident. Persistent mild cardiomegaly with left lower lung atelectasis. New small right pleur al effusion noted.
[2018-11-02] MEDS: INSULIN ASPART (NovoLOG) 100 UNIT/ML VIAL SQ SCH ×4 (07:01→21:01)
[2018-11-02 07:10] LABS: Glucose,Whole Blood 88 mg/dL (75-99)
--- NOTE | 2018-11-02 07:38 | P.PN ---
Subjective Progress Note Date: 11/02/18 Principal diagnosis: Severe aortic stenosis, bicuspid aortic valve. Previous medical history of non- ST elevation myocardial infarction, syncope, paroxysmal atrial fibrillation, pr evious tobacco dependence, quit 3 weeks ago with preoperative FEV1 95% of predicted. Preoperative nasal screen positive for MSSA. POD #3 aortic valve replacement with 21 mm On-X mechanical valve, epi-aortic ultrasonography, ligation of left atrial appendage with a 35 mm AtriCure clip. The patient is currently sitting up in a chair eating breakfast in no acute distress, remains in the intensive care unit. Remains in normal sinus rhythm. Hemodynamically stable on no inotropes or pressors. Epicardial pacemaker wires and chest tubes were discontinued yesterday. Patient was started on Coumadin last night. States pain is intermittently controlled with current medication regimen, denies shortness of breath. No new complaints. Objective - Vital Signs Vital signs: Vital Signs Temp 98.9 F 11/02/18 04:00 Pulse 81 11/02/18 04:00 Resp 16 11/02/18 04:00 BP 118/84 11/02/18 04:00 Pulse Ox 93 L 11/02/18 04:00 Intake & Output 11/01/18 11/02/18 11/02/18 18:59 06:59 18:59 Intake Total 500 Output Total 575 350 Balance -575 150 Weight 68.6 kg Intake: Oral 500 Output: Chest Tube Drainage 75 Left Pleural/Mediastinal 75 Urine 500 350 Other: Voiding Method Urinal Urinal # Voids 1 ABP, PAP, CO, CI - Last Documented Arterial Blood Pressure 137/59 Pulmonary Artery Pressure 23/13 Cardiac Output 6.1 Cardiac Index 2.8 - Constitutional General appearance: Present: cooperative, no acute distress - Respiratory Details: Lungs sounds clear bilaterally. Respirations even, nonlabored. Currently on room air with oxygen saturation 93%. Able to achieve 1500 mL on his incentive spirometry. Strong, dry cough. - Cardiovascular Details: S1, S2 present, positive valvular click. Regular rate and rhythm, sinus rhythm on telemetry. Sternum stable. Palpable peripheral pulses bilaterally. No edema present. No calf pain or tenderness noted. Heart hugger in place with patient demonstrating appropriate use. Antiembolism stockings, SCDs present. - Gastrointestinal Gastrointestinal Comment(s): Abdomen soft, nontender, nondistended. Active bowel sounds present 4 quadrants. Tolerating diet. Positive flatus, negative bowel movement. - Genitourinary Genitourinary Comment(s): Continues to void clear, yellow urine. Output 250 mL overnight. - Integumentary Integumentary Comment(s): Skin is warm and dry with evidence of good perfusion. Anterior chest incision well approximated and covered with dry intact dressing. - Neurologic Neurologic: Present: CNII-XII intact - Musculoskeletal Musculoskeletal: Present: gait normal, strength equal bilaterally - Psychiatric Psychiatric: Present: A&O x's 3, appropriate affect, intact judgment & insight - Allied health notes Allied health notes reviewed: nursing - Labs CBC & Chem 7: 11/02/18 04:21 11/02/18 04:21 Labs: Abnormal Lab Results - Last 24 Hours (Table) 11/01/18 11/01/18 11/02/18 Range/Units 16:43 20:35 04:21 RBC 3.06 L (4.30-5.90) m/uL Hgb 9.8 L (13.0-17.5) gm/dL Hct 29.0 L (39.0-53.0) % Plt Count 110 L (150-450) k/uL POC Glucose (mg/dL) 101 H 132 H (75-99) mg/dL - Imaging and Cardiology Chest x-ray: report reviewed, image reviewed Assessment and Plan Assessment: 1. Severe aortic stenosis, bicuspid aortic valve, status post mechanical aortic valve replacement 2. History of recent non-STEMI 3. History of recent syncope 4. History of recent preoperative paroxysmal atrial fibrillation, currently in normal sinus rhythm 5. Previous tobacco dependence, quit smoking 3 weeks ago 6. Preoperative nasal swab positive for MSSA Plan: 1. Continue full strength aspirin, statin, Plavix, beta kimberly therapy. Will increase beta kimberly therapy as tolerated. 2. Encourage incentive spirometry use 10 times every hour while awake. Encourage continued smoking cessation. 3. Increase activity, ambulate in hallway. PT/OT/cardiac rehab following. 4. Bronchodilators per pulmonology. 5. Pain control with current medication regimen. 6. Will monitor daily labs and x-rays. Electrolyte replacement per protocol. 7. Coumadin dosing based on daily INR. Goal INR with On-X mechanical valve 2.5-3.0 for the first 3 months with full strength aspirin, then goal INR 1.5-2.0 thereafter. 8. Insulin management per primary care service. 9. GI prophylaxis with Protonix. DVT prophylaxis with subcu heparin, SCDs. 10. Transfer orders placed yesterday for 3 S. cardiac stepdown unit. May transfer when bed available. 11. Discharge planning in progress. Anticipate discharge to home with home care once INR is therapeutic. 12. More recommendations to follow based on patient's progress. Time with Patient: Greater than 30
--- NOTE | 2018-11-02 08:05 | P.PN ---
Progress Note - Text Progress Note Date: 11/02/18 This is a 53-year-old gentleman who is status post aortic valve replacement for aortic stenosis and history of syncope. Patient is progressing fairly well. All the chest tubes were removed. Still complains of some cough and chest pain which is gradually getting better. Chest x-ray findings are stable. Vital signs are stable. Blood pressure in the range of 120/80. Pulse rate is 80. Patient is maintaining sinus rhythm. Saturations are 93%. Lungs appeared to be showing clear breath sounds with minimal rales at bases. Heart is regular. Lab values showed hemoglobin of 9.8. Electoral lites are within normal limits. Creatinine is 0.99. His INR is 1 Chest x-ray showed mild atelectasis. No evidence of any CHF or pneumonia. GENERAL EXAM: Patient is alert and oriented and doesn't appear to be in any acute distress HEENT: Normocephalic. Normal reaction of pupils, equal size, normal range of extraocular motion. No erythema or exudates in the throat. NECK: No masses, no nuchal rigidity. CHEST: No chest wall deformity. LUNGS: Equal air entry with no crackles or wheeze. Few rales at bases HEART: S1 and S2 normal with no audible mumurs or gallops. Regular rhythm, femorals equal on both sides.. ABDOMEN: No hepatosplenomegaly, normal bowel sounds, no guarding or rigidity. SKIN: No rashes CENTRAL NERVOUS SYSTEM: No focal deficits. EXTREMITIES: No cyanosis, clubbing or edema. Final impression: #1. Status post right coronary placement. #2. Postoperative anemia. #3. Postoperative chest pain. Plan.: Continue with by mouth Coumadin. May consider Lovenox until INR becomes therapeutic. Increase activity as tolerated.
[2018-11-02] MEDS: PANTOPRAZOLE 40 MG TABLET PO SCH (08:16)
[2018-11-02] MEDS: IPRATROPIUM-ALBUTEROL 3 ML NEB INHALATION SCH ×4 (08:22→19:51)
[2018-11-02] MEDS: HEPARIN SODIUM,PORCINE 5,000 UNIT/ML 1 ML VIAL SQ SCH ×3 (08:39→23:13)
[2018-11-02] MEDS: ASPIRIN 325 MG TAB PO SCH (08:39)
[2018-11-02] MEDS: ATORVASTATIN 40 MG TAB PO SCH (08:39)
[2018-11-02] MEDS: METOPROLOL TARTRATE 50 MG TAB PO SCH ×2 (08:40→21:00)
[2018-11-02] MEDS: MUPIROCIN 2% OINT 22 GM TUBE NASAL SCH ×2 (08:40→21:04)
[2018-11-02 11:34] LABS: Glucose,Whole Blood 88 mg/dL (75-99)
[2018-11-02] MEDS ORDERED: MORPHINE SULFATE 2 MG/ML SYRINGE IVP STA (12:43)
--- NOTE | 2018-11-02 12:53 | P.PN ---
Subjective Progress Note Date: 11/02/18 Principal diagnosis: Medical management post AV valve replacement Patient was seen and examined. No acute events overnight. Patient reports chest pain, only with cough, and the sternal region. Patient reports good exercise tolerance as he has been ambulating the hallways freely. He denies any shortness of breath or palpitations. No nausea or vomiting. No fever or chills. Objective - Vital Signs Vital signs: Vital Signs Temp 98.0 F 11/02/18 08:10 Pulse 84 11/02/18 10:52 Resp 20 11/02/18 08:10 BP 131/73 11/02/18 08:10 Pulse Ox 93 L 11/02/18 08:10 Intake & Output 11/01/18 11/02/18 11/02/18 18:59 06:59 18:59 Intake Total 500 240 Output Total 575 350 100 Balance -575 150 140 Weight 68.6 kg Intake: Oral 500 240 Output: Chest Tube Drainage 75 Left Pleural/Mediastinal 75 Urine 500 350 100 Other: Voiding Method Urinal Urinal Urinal # Voids 1 ABP, PAP, CO, CI - Last Documented Arterial Blood Pressure 137/59 Pulmonary Artery Pressure 23/13 Cardiac Output 6.1 Cardiac Index 2.8 - Exam General: [non toxic], [no distress], [appears at stated age] Derm: [warm], [dry] Head: [atraumatic], [normocephalic], [symmetric] Eyes: [EOMI], [no lid lag], [anicteric sclera] Mouth: [no lip lesion], [mucus membranes moist] Cardiovascular: [S1S2 reg], [no murmur], [positive DP pulse bilateral], [sternal scar dressing clean dry and intact, [heart hugger in place] Lungs: [CTA bilateral], [no rhonchi, no rales] , [no accessory muscle use] Abdominal: [soft], [ nontender to palpation], [no guarding], [no appreciable organomegaly] Ext: [no gross muscle atrophy], [no edema], [no contractures] Neuro: [no focal neuro deficits] Psych: [Alert], [oriented], [appropriate affect] - Labs CBC & Chem 7: 11/02/18 04:21 11/02/18 04:21 Labs: Abnormal Lab Results - Last 24 Hours (Table) 11/01/18 11/01/18 11/02/18 Range/Units 16:43 20:35 04:21 RBC 3.06 L (4.30-5.90) m/uL Hgb 9.8 L (13.0-17.5) gm/dL Hct 29.0 L (39.0-53.0) % Plt Count 110 L (150-450) k/uL POC Glucose (mg/dL) 101 H 132 H (75-99) mg/dL Assessment and Plan Assessment: Assessment and Plan 1. Aortic stenosis with aortic regurgitation status post aortic valve replacement 2. Hyperglycemia 3. Anemia likely secondary to acute blood loss from surgery 4. Leukocytosis - resolved 5. ASCVD risk 6. DVT and GI prophylaxis 1. As confirmed on echocardiogram, ALVARO, cardiac catheterization during September admission. Patient is status postaortic valve replacement postop day 3. Chest x-ray shows postoperative changes of CABG. Albumin 2.7, replaced by cardiothoracic surgery. Magnesium 4.2 and ionized calcium 5.4, replace via IV if necessary. Aggressive bowel regimen with Dulcolax suppository as needed for constipation. Cefazolin 2 g IV 3 times a day for 3 total doses. Pain management with [place] or Percocet as needed. DuoNeb as needed for shortness of breath or wheezing. Increase metoprolol to 50 mg by mouth twice a day. Daily CBC. Telemetry monitoring. Monitoring of vitals. Head of bed elevation. Incentive spirometry. Will follow cardiology, cardiothoracic surgery recommendations. 2. Anticipated elevation of blood glucose due to stress from surgery. This could potentially cause delayed wound healing. [id number] glucose 88. Insulin sliding scale. Regular Accu-Cheks. Hypoglycemic precautions. 3. Hemoglobin 9.8 from 11.4 on admission. Likely secondary to acute blood loss from surgery. Transfuse if hemoglobin under 7. Daily CBC. 4. Leukocytosis of 21.3 with neutrophilia, resolved. Likely reactive from surgery. No signs of infection. 5. Continue aspirin 325 mg by mouth daily, Lipitor 40 mg by mouth daily. 6. Heparin 5000 units subcutaneously 3 times a day. Protonix 40 mg IV daily. Patient recovering well from aortic valve replacement. Cardio thoracic surgery and cardiology on board. Coumadin started yesterday, goal INR 2.5-3. Will need INR to be therapeutic prior to discharge. Likely DC tomorrow or Tuesday.
--- NOTE | 2018-11-02 13:58 | P.PN ---
Subjective Progress Note Date: 11/02/18 Principal diagnosis: Bicuspid aortic valve, status post aortic valve replacement. Postoperative day #3. The patient is seen today again in follow-up on the selective care unit. He is currently sitting up in a chair at the bedside. Awake and alert in no acute distress. He states his pain is well controlled. He's been up ambulating in the room and us with assistance. He is working well with the incentive spirometer. No worsening shortness of breath, cough or congestion. He is maintaining good O2 saturations in the 90s on room air. He's been afebrile. Hemodynamically stable. Chest x-ray shows persistent mild cardiomegaly with some left lower lobe atelectasis. New small right pleural effusion. No pneumothorax post tube removal. White count 10.2. Hemoglobin 9.8. Creatinine 0.99. Objective - Vital Signs Vital signs: Vital Signs Temp 98.0 F 11/02/18 08:10 Pulse 84 11/02/18 10:52 Resp 20 11/02/18 08:10 BP 131/73 11/02/18 08:10 Pulse Ox 93 L 11/02/18 08:10 Intake & Output 11/01/18 11/02/18 11/02/18 18:59 06:59 18:59 Intake Total 500 240 Output Total 575 350 100 Balance -575 150 140 Weight 68.6 kg Intake: Oral 500 240 Output: Chest Tube Drainage 75 Left Pleural/Mediastinal 75 Urine 500 350 100 Other: Voiding Method Urinal Urinal Urinal # Voids 1 ABP, PAP, CO, CI - Last Documented Arterial Blood Pressure 137/59 Pulmonary Artery Pressure 23/13 Cardiac Output 6.1 Cardiac Index 2.8 - Exam GENERAL EXAM: Alert, active, comfortable in no apparent distress. On room air. HEAD: Normocephalic. EYES: Normal reaction of pupils, equal size. NOSE: Clear with pink turbinates. THROAT: No erythema or exudates. NECK: No masses, no JVD. CHEST: Sternal dressing dry and intact. Heart Hugger in place. LUNGS: Equal air entry with crackles in the posterior bases left greater than right. CVS: S1 and S2 normal with no audible murmur, regular rhythm. ABDOMEN: No hepatosplenomegaly, normal bowel sounds, no guarding or rigidity. SPINE: No scoliosis or deformity SKIN: No rashes CENTRAL NERVOUS SYSTEM: No focal deficits, tone is normal in all 4 extremities. EXTREMITIES: There is no peripheral edema. No clubbing, no cyanosis. Peripheral pulses are intact. - Labs CBC & Chem 7: 11/02/18 04:21 11/02/18 04:21 Labs: Abnormal Lab Results - Last 24 Hours (Table) 11/01/18 11/01/18 11/02/18 Range/Units 16:43 20:35 04:21 RBC 3.06 L (4.30-5.90) m/uL Hgb 9.8 L (13.0-17.5) gm/dL Hct 29.0 L (39.0-53.0) % Plt Count 110 L (150-450) k/uL POC Glucose (mg/dL) 101 H 132 H (75-99) mg/dL Assessment and Plan Assessment: Impression: #1 Bicuspid aortic valve, status post aortic valve replacement with mechanical valve. Postoperative day #2. Will be on warfarin. Current INR 1.0. #2 History of chronic tobacco dependence. #3 History of anxiety. #4 History of chronic back and neck pain. Plan: The patient was seen and evaluated by Dr. Stanton. Chest x-ray and labs were reviewed. He is doing well from the pulmonary standpoint. Maintaining good O2 saturations in the 90s on room air. We've encouraged increased use of the incentive spirometer and cough and deep breathing exercises. Continue bronchodilators. We'll increase his activity as tolerated. Initiated on warfarin. Heparin for DVT prophylaxis per We'll continue to follow. I, the cosigning physician, performed a history & physical examination of the patient. Lungs sounds with faint crackles in the posterior bases left greater than right. Maintaining good O2 saturations in the 90s on room air. I discusse d the assessment and plan of care with my nurse practitioner, Darling Jamil. I attest to the above note as dictated by her.
[2018-11-02 16:20] LABS: Glucose,Whole Blood 104 mg/dL (75-99)
[2018-11-02] MEDS ORDERED: WARFARIN 7.5 MG TAB PO ONE (18:00)
[2018-11-02 20:53] LABS: Glucose,Whole Blood 110 mg/dL (75-99)
[2018-11-02] MEDS: SENNOSIDES-DOCUSATE SODIUM 1 EACH TAB PO SCH (21:00)
[2018-11-02] MEDS: MELATONIN 5 MG TABLET PO SCH (21:00)
[2018-11-03] MEDS: HYDROcodone/APAP 5-325MG 1 EACH TAB PO PRN ×4 (05:41→20:32)
[2018-11-03] MEDS: KETOROLAC 30 MG/ML 1 ML VIAL IVP SCH ×2 (05:42→11:42)
[2018-11-03 05:46] LABS: Glucose,Whole Blood 99 mg/dL (75-99)
[2018-11-03] MEDS: PANTOPRAZOLE 40 MG TABLET PO SCH (05:46)
[2018-11-03] MEDS: INSULIN ASPART (NovoLOG) 100 UNIT/ML VIAL SQ SCH ×3 (05:47→17:32)
[2018-11-03 06:52] LABS: HCT 28.6 % (39.0-53.0); HGB 9.5 gm/dL (13.0-17.5); MCH 31.5 pg (25.0-35.0); MCHC 33.1 g/dL (31.0-37.0); MCV 95.1 fL (80.0-100.0); Mean Platelet Volume 8.6; Platelet Count 156 k/uL (150-450); RBC 3.01 m/uL (4.30-5.90); RDW 12.5 % (11.5-15.5); WBC 6.7 k/uL (3.8-10.6)
[2018-11-03 06:55] LABS: INR 1.7 (<1.2); Prothrombin Time 17.1 sec (9.0-12.0)
[2018-11-03 07:06] LABS: Calcium 8.6 mg/dL (8.4-10.2); Potassium 4.7 mmol/L (3.5-5.1)
--- NOTE | 2018-11-03 07:11 | XR ---
EXAMINATION TYPE: XR chest 2V DATE OF EXAM: 11/03/2018 COMPARISON: Prior chest x-ray 11/02/2018 HISTORY: Status post cardiac surgery TECHNIQUE: Frontal and lateral views of the chest are obtained. FINDINGS: There is some improved aeration as compared to prior exam. Postop changes are again noted. There are overlying cardiac leads. Minimal blunting of the costophrenic angles is again seen. Heart size within normal limits. IMPRESSION: Improved aeration. Suspect small pleural effusions and associated atelectasis. Epicardia l pacing leads remain in place.
[2018-11-03] MEDS: HEPARIN SODIUM,PORCINE 5,000 UNIT/ML 1 ML VIAL SQ SCH ×2 (08:12→13:57)
[2018-11-03] MEDS: ATORVASTATIN 40 MG TAB PO SCH (08:15)
[2018-11-03] MEDS: ASPIRIN 81 MG PO SCH (08:15)
[2018-11-03] MEDS: METOPROLOL TARTRATE 50 MG TAB PO SCH ×2 (08:15→22:25)
[2018-11-03] MEDS: IPRATROPIUM-ALBUTEROL 3 ML NEB INHALATION SCH ×4 (08:32→20:49)
--- NOTE | 2018-11-03 08:45 | P.PN ---
Subjective Progress Note Date: 11/03/18 Principal diagnosis: Severe aortic stenosis, bicuspid aortic valve. Previous medical history of non- ST elevation myocardial infarction, syncope, paroxysmal atrial fibrillation, pr evious tobacco dependence, quit 3 weeks ago with preoperative FEV1 95% of predicted. Preoperative nasal screen positive for MSSA. POD #4 aortic valve replacement with 21 mm On-X mechanical valve, epi-aortic ultrasonography, ligation of left atrial appendage with a 35 mm AtriCure clip. The patient is currently ambulating in the room in no acute distress. Remains in normal sinus rhythm. Hemodynamically stable on no inotropes or pressors. States pain is intermittently controlled with current medication regimen, denies shortness of breath. No new complaints. Objective - Vital Signs Vital signs: Vital Signs Temp 97.1 F L 11/03/18 04:00 Pulse 78 11/03/18 04:00 Resp 15 11/03/18 04:00 BP 126/63 11/03/18 04:00 Pulse Ox 93 L 11/03/18 04:00 Intake & Output 11/02/18 11/03/18 11/03/18 18:59 06:59 18:59 Intake Total 360 520 180 Output Total 200 Balance 160 520 180 Weight 69.6 kg Intake: Oral 360 520 180 Output: Urine 200 Other: Voiding Method Urinal Urinal # Voids 2 # Bowel Movements 1 ABP, PAP, CO, CI - Last Documented Arterial Blood Pressure 137/59 Pulmonary Artery Pressure 23/13 Cardiac Output 6.1 Cardiac Index 2.8 - Constitutional General appearance: Present: cooperative, no acute distress - Respiratory Details: Lungs sounds clear bilaterally. Respirations even, nonlabored. Currently on room air with oxygen saturation 93%. Able to achieve 2250 mL on his incentive spirometry. Strong, dry cough. - Cardiovascular Details: S1, S2 present, positive valvular click. Regular rate and rhythm, sinus rhythm on telemetry. Sternum stable. Palpable peripheral pulses bilaterally. No edema present. No calf pain or tenderness noted. Heart hugger in place with patient demonstrating appropriate use. Antiembolism stockings, SCDs present. - Gastrointestinal Gastrointestinal Comment(s): Abdomen soft, nontender, nondistended. Active bowel sounds present 4 quadrants. Tolerating diet. Positive bowel movement. - Genitourinary Genitourinary Comment(s): Continues to void clear, yellow urine. - Integumentary Integumentary Comment(s): Skin is warm and dry with evidence of good perfusion. Anterior chest incision well approximated and covered with dry intact dressing. - Neurologic Neurologic: Present: CNII-XII intact - Musculoskeletal Musculoskeletal: Present: gait normal, strength equal bilaterally - Psychiatric Psychiatric: Present: A&O x's 3, appropriate affect, intact judgment & insight - Allied health notes Allied health notes reviewed: nursing - Labs CBC & Chem 7: 11/03/18 05:35 11/03/18 05:35 Labs: Abnormal Lab Results - Last 24 Hours (Table) 11/02/18 11/02/18 11/03/18 Range/Units 16:19 20:52 05:35 RBC (4.30-5.90) m/uL Hgb (13.0-17.5) gm/dL Hct (39.0-53.0) % PT 17.1 H (9.0-12.0) sec INR 1.7 H (<1.2) BUN (9-20) mg/dL POC Glucose (mg/dL) 104 H 110 H (75-99) mg/dL 11/03/18 11/03/18 Range/Units 05:35 05:35 RBC 3.01 L (4.30-5.90) m/uL Hgb 9.5 L (13.0-17.5) gm/dL Hct 28.6 L (39.0-53.0) % PT (9.0-12.0) sec INR (<1.2) BUN 24 H (9-20) mg/dL POC Glucose (mg/dL) (75-99) mg/dL - Imaging and Cardiology Chest x-ray: report reviewed, image reviewed Assessment and Plan Assessment: 1. Severe aortic stenosis, bicuspid aortic valve, status post mechanical aortic valve replacement 2. History of recent non-STEMI 3. History of recent syncope 4. History of recent preoperative paroxysmal atrial fibrillation, currently in normal sinus rhythm 5. Previous tobacco dependence, quit smoking 3 weeks ago 6. Preoperative nasal swab positive for MSSA Plan: 1. Continue low-dose aspirin, statin, beta kimberly therapy. Will increase beta kimberly therapy as tolerated. 2. Encourage incentive spirometry use 10 times every hour while awake. Encourage continued smoking cessation. 3. Increase activity, ambulate in hallway. PT/OT/cardiac rehab following. 4. Bronchodilators per pulmonology. 5. Pain control with current medication regimen. 6. Will monitor daily labs and x-rays. Electrolyte replacement per protocol. 7. Coumadin dosing based on daily INR. Goal INR with On-X mechanical valve 2.5-3.0 for the first 3 months, then goal INR 1.5-2.0 thereafter. 8. Insulin management per primary care service. 9. GI prophylaxis with Protonix. DVT prophylaxis with subcu heparin, SCDs. 10. Discharge planning in progress. Anticipate discharge to home with home care once INR is therapeutic. 11. More recommendations to follow based on patient's progress. Time with Patient: Greater than 30
[2018-11-03] MEDS ORDERED: ACETAMINOPHEN TAB 325 MG TAB PO PRN ×2 (08:46)
[2018-11-03 11:38] LABS: Glucose,Whole Blood 109 mg/dL (75-99)
[2018-11-03] MEDS ORDERED: MORPHINE SULFATE 2 MG/ML SYRINGE IVP STA (12:12)
--- NOTE | 2018-11-03 12:12 | P.PN ---
Subjective Progress Note Date: 11/03/18 Principal diagnosis: Medical management post AV valve replacement Patient was seen and examined. No acute events overnight. Patient reports coughing up clear white sputum. He does report some chest pain at the site of incision when he coughs. He denies any shortness of breath or palpitations. Ambulating the hallways without any difficulty. Patient is looking for to going home. INR this morning 1.7. Objective - Vital Signs Vital signs: Vital Signs Temp 97.5 F L 11/03/18 11:47 Pulse 67 11/03/18 11:47 Resp 18 11/03/18 11:47 BP 116/73 11/03/18 11:47 Pulse Ox 93 L 11/03/18 11:47 Intake & Output 11/02/18 11/03/18 11/03/18 18:59 06:59 18:59 Intake Total 360 520 180 Output Total 200 Balance 160 520 180 Weight 69.6 kg Intake: Oral 360 520 180 Output: Urine 200 Other: Voiding Method Urinal Urinal # Voids 2 # Bowel Movements 1 ABP, PAP, CO, CI - Last Documented Arterial Blood Pressure 137/59 Pulmonary Artery Pressure 23/13 Cardiac Output 6.1 Cardiac Index 2.8 - Exam General: [non toxic], [no distress], [appears at stated age] Derm: [warm], [dry] Head: [atraumatic], [normocephalic], [symmetric] Eyes: [EOMI], [no lid lag], [anicteric sclera] Mouth: [no lip lesion], [mucus membranes moist] Cardiovascular: [S1S2 reg], [no murmur], [positive DP pulse bilateral], [sternal scar dressing clean dry and intact, [heart hugger in place] Lungs: [CTA bilateral], [no rhonchi, no rales] , [no accessory muscle use] Abdominal: [soft], [ nontender to palpation], [no guarding], [no appreciable organomegaly] Ext: [no gross muscle atrophy], [no edema], [no contractures] Neuro: [no focal neuro deficits] Psych: [Alert], [oriented], [appropriate affect] - Labs CBC & Chem 7: 11/03/18 05:35 11/03/18 05:35 Labs: Abnormal Lab Results - Last 24 Hours (Table) 11/02/18 11/02/18 11/03/18 Range/Units 16:19 20:52 05:35 RBC (4.30-5.90) m/uL Hgb (13.0-17.5) gm/dL Hct (39.0-53.0) % PT 17.1 H (9.0-12.0) sec INR 1.7 H (<1.2) BUN (9-20) mg/dL POC Glucose (mg/dL) 104 H 110 H (75-99) mg/dL 11/03/18 11/03/18 11/03/18 Range/Units 05:35 05:35 11:36 RBC 3.01 L (4.30-5.90) m/uL Hgb 9.5 L (13.0-17.5) gm/dL Hct 28.6 L (39.0-53.0) % PT (9.0-12.0) sec INR (<1.2) BUN 24 H (9-20) mg/dL POC Glucose (mg/dL) 109 H (75-99) mg/dL Assessment and Plan Assessment: Assessment and Plan 1. Aortic stenosis with aortic regurgitation status post aortic valve r eplacement 2. Hyperglycemia 3. Anemia likely secondary to acute blood loss from surgery 4. Leukocytosis - resolved 5. ASCVD risk 6. DVT and GI prophylaxis 1. As confirmed on echocardiogram, ALVARO, cardiac catheterization during September admission. Patient is status postaortic valve replacement postop day 3. Chest x-ray shows postoperative changes of CABG. Albumin 2.7, replaced by cardiothora cic surgery. Magnesium 4.2 and ionized calcium 5.4, replace via IV if necessary. Aggressive bowel regimen with Dulcolax suppository as needed for constipation. Cefazolin 2 g IV 3 times a day for 3 total doses. Pain management with [place] or Percocet as needed. DuoNeb as needed for shortness of breath or wheezing. Increase metoprolol to 50 mg by mouth twice a day. Daily CBC. Telemetry monitoring. Monitoring of vitals. Head of bed elevation. Incentive spirometry. Will follow cardiology, cardiothoracic surgery recommendations. 2. Anticipated elevation of blood glucose due to stress from surgery. This could potentially cause delayed wound healing. [id number] glucose 109. Insulin sliding scale. Regular Accu-Cheks. Hypoglycemic precautions. 3. Hemoglobin 9.5, 9.8 from 11.4 on admission. Likely secondary to acute blood loss from surgery. Transfuse if hemoglobin under 7. Daily CBC. 4. Leukocytosis of 21.3 with neutrophilia, resolved. Likely reactive from surgery. No signs of infection. 5. Continue aspirin 325 mg by mouth daily, Lipitor 40 mg by mouth daily. 6. Heparin 5000 units subcutaneously 3 times a day. Protonix 40 mg IV daily. Patient recovering well from aortic valve replacement. Cardio thoracic surgery and cardiology on board. Coumadin started yesterday, goal INR 2.5-3. INR 1.7, likely to be therapeutic tomorrow. Likely DC tomorrow.
--- NOTE | 2018-11-03 12:36 | P.PN ---
Subjective Progress Note Date: 11/03/18 This is a 53-year-old gentleman with history of syncope and severe aortic stenosis who had aortic valve replacement. Patient had a mechanical valve. Patient seemed to be doing better. Chest pain is intermittent but seems to be gradually improving. Chest tube is going to be taken out today. Vital signs are stable. Maintaining sinus rhythm. Lab values showed hemoglobin of 10.1. Elect lites are within normal limits. His creatinine is 1.1. Chest x-ray showed platelike it atelectasis is present. No pneumothorax of CHF. GENERAL EXAM: Patient is alert and oriented and doesn't appear to be in any acute distress HEENT: Normocephalic. Normal reaction of pupils, equal size, normal range of extraocular motion. No erythema or exudates in the throat. NECK: No masses, no nuchal rigidity. CHEST: Postsurgical LUNGS: Equal air entry with no crackles or wheeze. HEART: S1 and S2 normal with no audible mumurs or gallops. Regular rhythm, femorals equal on both sides.. ABDOMEN: No hepatosplenomegaly, normal bowel sounds, no guarding or rigidity. SKIN: No rashes CENTRAL NERVOUS SYSTEM: No focal deficits. EXTREMITIES: No cyanosis, clubbing or edema. Final impression: #1. Status post aortic valve replacement. Plan: Continue with anticoagulation and aspirin. Increase activity. Removal of chest tube today. We'll follow. 11/03/2018: This patient's remains stable. Tolerating activity well. A chest pain is gradually improving. INR is about 1.7. Waiting INR to become therapeutic around 2.5. Meanwhile, continue current medical therapy. Increase activity as tolerated Objective - Vital Signs Vital signs: Vital Signs Temp 97.5 F L 11/03/18 11:47 Pulse 67 11/03/18 11:47 Resp 18 11/03/18 11:47 BP 116/73 11/03/18 11:47 Pulse Ox 93 L 11/03/18 11:47 Intake & Output 11/02/18 11/03/18 11/03/18 18:59 06:59 18:59 Intake Total 360 520 180 Output Total 200 Balance 160 520 180 Weight 69.6 kg Intake: Oral 360 520 180 Output: Urine 200 Other: Voiding Method Urinal Urinal # Voids 2 # Bowel Movements 1 ABP, PAP, CO, CI - Last Documented Arterial Blood Pressure 137/59 Pulmonary Artery Pressure 23/13 Cardiac Output 6.1 Cardiac Index 2.8 - Exam GENERAL EXAM: Patient is alert and oriented and doesn't appear to be in any acute distress HEENT: Normocephalic. Normal reaction of pupils, equal size, normal range of extraocular motion. No erythema or exudates in the throat. NECK: No masses, no nuchal rigidity. CHEST: No chest wall deformity. LUNGS: Equal air entry with no crackles or wheeze. HEART: S1 and S2 normal with no audible mumurs or gallops. Regular rhythm, femorals equal on both sides.. ABDOMEN: No hepatosplenomegaly, normal bowel sounds, no guarding or rigidity. SKIN: No rashes CENTRAL NERVOUS SYSTEM: No focal deficits. EXTREMITIES: No cyanosis, clubbing or edema. - Labs CBC & Chem 7: 11/03/18 05:35 11/03/18 05:35 Labs: Abnormal Lab Results - Last 24 Hours (Table) 11/02/18 11/02/18 11/03/18 Range/Units 16:19 20:52 05:35 RBC (4.30-5.90) m/uL Hgb (13.0-17.5) gm/dL Hct (39.0-53.0) % PT 17.1 H (9.0-12.0) sec INR 1.7 H (<1.2) BUN (9-20) mg/dL POC Glucose (mg/dL) 104 H 110 H (75-99) mg/dL 11/03/18 11/03/18 11/03/18 Range/Units 05:35 05:35 11:36 RBC 3.01 L (4.30-5.90) m/uL Hgb 9.5 L (13.0-17.5) gm/dL Hct 28.6 L (39.0-53.0) % PT (9.0-12.0) sec INR (<1.2) BUN 24 H (9-20) mg/dL POC Glucose (mg/dL) 109 H (75-99) mg/dL Assessment and Plan (1) Status post aortic valve replacement Current Visit: Yes Status: Acute Code(s): Z95.2 - PRESENCE OF PROSTHETIC HEART VALVE SNOMED Code(s): 6744265281401 (2) S/P left atrial appendage ligation Current Visit: Yes Status: Acute Code(s): Z98.890 - OTHER SPECIFIED POSTPROCEDURAL STATES SNOMED Code(s): 210549208 Plan: Patient is critically stable. No arrhythmias. INR is subtherapeutic. Possible discharge tomorrow if His INR is more than 2.5. Patient is also on aspirin
--- NOTE | 2018-11-03 13:33 | P.PN ---
Subjective Progress Note Date: 11/03/18 Principal diagnosis: Bicuspid aortic valve, status post aortic valve replacement. Postoperative day #4. The patient is seen today on the selective care unit. He is awake and alert in no acute distress. He's been up ambulating without significant dyspnea on exertion. He is maintaining good O2 saturations in the 90s on room air. He's been afebrile. Hemodynamically stable. Chest x-ray showing improved aeration. There are small pleural effusions with associated atelectasis. White count 6.7. Hemoglobin 9.5. INR 1.7. Creatinine 1.09. He'll receive warfarin 5 mg katja ght. He remains on bronchodilators. He is working well with the incentive spirometer. Objective - Vital Signs Vital signs: Vital Signs Temp 97.5 F L 11/03/18 11:47 Pulse 67 11/03/18 12:00 Resp 18 11/03/18 12:00 BP 116/73 11/03/18 11:47 Pulse Ox 93 L 11/03/18 11:47 Intake & Output 11/02/18 11/03/18 11/03/18 18:59 06:59 18:59 Intake Total 360 520 180 Output Total 200 Balance 160 520 180 Weight 69.6 kg Intake: Oral 360 520 180 Output: Urine 200 Other: Voiding Method Urinal Urinal # Voids 2 # Bowel Movements 1 ABP, PAP, CO, CI - Last Documented Arterial Blood Pressure 137/59 Pulmonary Artery Pressure 23/13 Cardiac Output 6.1 Cardiac Index 2.8 - Exam GENERAL EXAM: Alert, active, comfortable in no apparent distress. On room air. HEAD: Normocephalic. EYES: Normal reaction of pupils, equal size. NOSE: Clear with pink turbinates. THROAT: No erythema or exudates. NECK: No masses, no JVD. CHEST: Sternal dressing dry and intact. Heart Hugger in place. LUNGS: Equal air entry with crackles in the posterior bases. CVS: S1 and S2 normal with no audible murmur, regular rhythm. ABDOMEN: No hepatosplenomegaly, normal bowel sounds, no guarding or rigidity. SPINE: No scoliosis or deformity SKIN: No rashes CENTRAL NERVOUS SYSTEM: No focal deficits, tone is normal in all 4 extremities. EXTREMITIES: There is no peripheral edema. No clubbing, no cyanosis. Peripheral pulses are intact. - Labs CBC & Chem 7: 11/03/18 05:35 11/03/18 05:35 Labs: Abnormal Lab Results - Last 24 Hours (Table) 11/02/18 11/02/18 11/03/18 Range/Units 16:19 20:52 05:35 RBC (4.30-5.90) m/uL Hgb (13.0-17.5) gm/dL Hct (39.0-53.0) % PT 17.1 H (9.0-12.0) sec INR 1.7 H (<1.2) BUN (9-20) mg/dL POC Glucose (mg/dL) 104 H 110 H (75-99) mg/dL 11/03/18 11/03/18 11/03/18 Range/Units 05:35 05:35 11:36 RBC 3.01 L (4.30-5.90) m/uL Hgb 9.5 L (13.0-17.5) gm/dL Hct 28.6 L (39.0-53.0) % PT (9.0-12.0) sec INR (<1.2) BUN 24 H (9-20) mg/dL POC Glucose (mg/dL) 109 H (75-99) mg/dL Assessment and Plan Assessment: Impression: #1 Bicuspid aortic valve, status post aortic valve replacement with mechanical valve. Anticoagulated with warfarin. INR 1.7. #2 History of chronic tobacco dependence. #3 History of anxiety. #4 History of chronic back and neck pain. Plan: The patient was seen and evaluated by Dr. Stanton. Chest x-ray and labs were reviewed. He is doing well from the pulmonary standpoint. We've encouraged increased use of the incentive spirometer and cough and deep breathing exercises. Continue bronchodilators. We'll increase his activity as tolerated. Initiated on warfarin. The plan is for probable discharge in the a.m. We'll continue to follow. I, the cosigning physician, performed a history & physical examination of the patient. Lungs sounds with faint crackles in the posterior bases left greater than right. Maintaining good O2 saturations in the 90s on room air. I discussed the assessment and plan of care with my nurse practitioner, Darling Jamil. I attest to the above note as dictated by her.
[2018-11-03 16:48] LABS: Glucose,Whole Blood 93 mg/dL (75-99)
[2018-11-03] MEDS ORDERED: WARFARIN 7.5 MG TAB PO ONE (18:00)
[2018-11-03] MEDS ORDERED: WARFARIN 5 MG TAB PO ONE (18:00)
[2018-11-03] MEDS ORDERED: WARFARIN 2.5 MG TAB PO ONE (20:00)
[2018-11-03 20:46] LABS: Glucose,Whole Blood 101 mg/dL (75-99)
[2018-11-03] MEDS: SENNOSIDES-DOCUSATE SODIUM 1 EACH TAB PO SCH (22:25)
[2018-11-03] MEDS: MELATONIN 5 MG TABLET PO SCH (22:25)
[2018-11-04] MEDS: HYDROcodone/APAP 5-325MG 1 EACH TAB PO PRN ×2 (01:16→04:49)
[2018-11-04 01:23] LABS: Glucose,Whole Blood 106 mg/dL (75-99)
[2018-11-04] MEDS: HEPARIN SODIUM,PORCINE 5,000 UNIT/ML 1 ML VIAL SQ SCH (01:30)
[2018-11-04] MEDS: INSULIN ASPART (NovoLOG) 100 UNIT/ML VIAL SQ SCH ×3 (01:55→12:02)
[2018-11-04] MEDS: PANTOPRAZOLE 40 MG TABLET PO SCH (04:50)
[2018-11-04 06:34] LABS: Glucose,Whole Blood 96 mg/dL (75-99)
[2018-11-04] MEDS ORDERED: HYDROcodone/APAP 7.5-325MG 1 EACH TAB PO PRN (07:32)
[2018-11-04 07:40] LABS: HCT 28.8 % (39.0-53.0); HGB 9.5 gm/dL (13.0-17.5); MCH 31.7 pg (25.0-35.0); MCHC 33.1 g/dL (31.0-37.0); MCV 95.8 fL (80.0-100.0); Mean Platelet Volume 8.6; Platelet Count 215 k/uL (150-450); RBC 3.01 m/uL (4.30-5.90); RDW 12.7 % (11.5-15.5); WBC 6.9 k/uL (3.8-10.6)
[2018-11-04 07:43] LABS: INR 3.4 (<1.2); Prothrombin Time 32.5 sec (9.0-12.0)
[2018-11-04 07:46] LABS: Calcium 8.8 mg/dL (8.4-10.2); Potassium 4.7 mmol/L (3.5-5.1)
[2018-11-04] MEDS ORDERED: guaiFENesin 600 MG TABLET.ER PO PRN (07:52)
--- NOTE | 2018-11-04 08:13 | P.PN ---
Subjective Progress Note Date: 11/04/18 Principal diagnosis: Severe aortic stenosis, bicuspid aortic valve. Previous medical history of non- ST elevation myocardial infarction, syncope, paroxysmal atrial fibrillation, pr evious tobacco dependence, quit 3 weeks ago with preoperative FEV1 95% of predicted. Preoperative nasal screen positive for MSSA. POD #5 aortic valve replacement with 21 mm On-X mechanical valve, epi-aortic ultrasonography, ligation of left atrial appendage with a 35 mm AtriCure clip. The patient is currently sitting up in the recliner, complains of significant surgical pain unrelieved with current medication regimen, did not get much sleep last night received 1 dose of IV morphine yesterday per primary care physician, requesting better pain control. Remains in normal sinus rhythm. Hemody namically stable on no inotropes or pressors. Patient was ambulatory multiple times in the hallway yesterday without assistance. Objective - Vital Signs Vital signs: Vital Signs Temp 96.9 F L 11/04/18 04:00 Pulse 87 11/04/18 04:00 Resp 17 11/04/18 04:00 BP 144/79 11/04/18 04:00 Pulse Ox 93 L 11/04/18 04:00 Intake & Output 11/03/18 11/04/18 11/04/18 18:59 06:59 18:59 Intake Total 430 600 Output Total 250 750 Balance 180 -150 Intake: Oral 430 600 Output: Urine 250 750 Other: Voiding Method Urinal # Voids 3 ABP, PAP, CO, CI - Last Documented Arterial Blood Pressure 137/59 Pulmonary Artery Pressure 23/13 Cardiac Output 6.1 Cardiac Index 2.8 - Constitutional General appearance: Present: cooperative, mild distress - Respiratory Details: Lungs sounds clear bilaterally. Respirations even, nonlabored. Currently on room air with oxygen saturation 93%. Able to achieve 2250 mL on his incentive spirometry. Strong, dry cough. - Cardiovascular Details: S1, S2 present, positive valvular click. Regular rate and rhythm, sinus rhythm on telemetry. Sternum stable. Palpable peripheral pulses bilaterally. No edema present. No calf pain or tenderness noted. Heart hugger in place with patient demonstrating appropriate use. Antiembolism stockings, SCDs present. - Gastrointestinal Gastrointestinal Comment(s): Abdomen soft, nontender, nondistended. Active bowel sounds present 4 quadrants. Tolerating diet. Positive bowel movement. - Genitourinary Genitourinary Comment(s): Continues to void clear, yellow urine. - Integumentary Integumentary Comment(s): Skin is warm and dry with evidence of good perfusion. Anterior chest incision well approximated and covered with dry intact dressing. - Neurologic Neurologic: Present: CNII-XII intact - Musculoskeletal Musculoskeletal: Present: gait normal, strength equal bilaterally - Psychiatric Psychiatric: Present: A&O x's 3, appropriate affect, intact judgment & insight - Allied health notes Allied health notes reviewed: nursing - Labs CBC & Chem 7: 11/03/18 05:35 11/04/18 06:30 Labs: Abnormal Lab Results - Last 24 Hours (Table) 11/03/18 11/03/18 11/04/18 Range/Units 11:36 20:38 01:20 PT (9.0-12.0) sec INR (<1.2) BUN (9-20) mg/dL POC Glucose (mg/dL) 109 H 101 H 106 H (75-99) mg/dL 11/04/18 11/04/18 Range/Units 06:30 06:30 PT 32.5 H (9.0-12.0) sec INR 3.4 H (<1.2) BUN 22 H (9-20) mg/dL POC Glucose (mg/dL) (75-99) mg/dL Assessment and Plan Assessment: 1. Severe aortic stenosis, bicuspid aortic valve, status post mechanical aortic valve replacement 2. History of recent non-STEMI 3. History of recent syncope 4. History of recent preoperative paroxysmal atrial fibrillation, currently in normal sinus rhythm 5. Previous tobacco dependence, quit smoking 3 weeks ago 6. Preoperative nasal swab positive for MSSA Plan: 1. Continue low-dose aspirin, statin, beta kimberly therapy. Will increase beta kimberly therapy as tolerated. 2. Encourage incentive spirometry use 10 times every hour while awake. Encourage continued smoking cessation. 3. Increase activity, ambulate in hallway. PT/OT/cardiac rehab following. 4. Bronchodilators per pulmonology. 5. Pain control with current medication regimen. Increased [place] from 5/325mg to 7/325mg. No more IV morphine. 6. Will monitor daily labs and x-rays. Electrolyte replacement per protocol. 7. Coumadin dosing based on daily INR. Goal INR with On-X mechanical valve 2.5-3.0 for the first 3 months, then goal INR 1.5-2.0 thereafter. 8. Insulin management per primary care service. 9. GI prophylaxis with Protonix. DVT prophylaxis with subcu heparin, SCDs. 10. Discharge planning in progress. Anticipate discharge to home with home care today. INR to be drawn Tuesday, Tuesday, Tuesday with results sent to cardiology office for continued Coumadin dosing. 11. More recommendations to follow based on patient's progress. Time with Patient: Greater than 30
[2018-11-04] MEDS: IPRATROPIUM-ALBUTEROL 3 ML NEB INHALATION SCH ×2 (08:26→12:49)
[2018-11-04 08:34] VITALS: RESP 18
[2018-11-04] MEDS: ASPIRIN 81 MG PO SCH (08:36)
[2018-11-04] MEDS: ATORVASTATIN 40 MG TAB PO SCH (08:36)
[2018-11-04] MEDS: METOPROLOL TARTRATE 50 MG TAB PO SCH (08:36)
[2018-11-04 11:50] LABS: Glucose,Whole Blood 96 mg/dL (75-99)
[2018-11-04 12:05] VITALS: BP 129/68; PULSE 69; TEMP 97.9
--- NOTE | 2018-11-04 12:17 | P.DS ---
Providers Date of admission: 10/30/18 05:32 Expected date of discharge: 11/04/18 Attending physician: Duane Ferrer Consults: 10/30/18 11:08 Consult Physician Routine Consulting Provider: Charlotte Martinez Consult Reason/Comments: Medical management Do you want consulting provider notified?: Yes Consult Physician Routine Consulting Provider: Nomi Stanton Consult Reason/Comments: Director Of Therapy Services Consult: post cardiac surgery Do you want consulting provider notified?: Yes Consult Physician Routine Consulting Provider: Evens Serrano Consult Reason/Comments: Threshing Operator Consult: post cardiac surgery Do you want consulting provider notified?: Yes Primary care physician: Stated None Hospital Course: FINAL DIAGNOSIS: 1. Severe aortic stenosis, bicuspid aortic valve 2. History of non-ST elevation myocardial infarction 3. Syncope 4. Paroxysmal atrial fibrillation 5. Previous tobacco dependence with preoperative FEV1 95% of predicted 6. Preoperative nasal screen positive for MSSA PRINCIPAL PROCEDURE: 1. Aortic valve replacement with 21 mm On-X mechanical valve 2. Epi-aortic ultrasonography 3. Ligation of left atrial appendage with a 35 mm AtriCure clip HISTORY OF PRESENT ILLNESS: This is a 53-year-old very active gentleman who previously did not follow with a primary care physician on a regular basis. In September 2018 he began to feel lightheaded, short of breath, and diaphoretic at home and proceeded to have a syncopal episode witnessed by his significant other, EMS was called and he was transported to [facility] for evaluation and treatment. During that admission he experienced transient episodes of hypotension, a brief episode of atrial fibrillation, and non-ST elevation myocardial infarction, which led to heart catheterization demonstrating no coronary artery disease, and transthoracic as well as transesophageal echocardiogram demonstrating severe aortic stenosis. Consultation was placed to Dr. Ferrer from cardiothoracic surgery. He was recommended to undergo mechanical aortic valve replacement. The usual perioperative course was discussed in detail with the patient and his family, all risks and benefits were explained, all questions were answered, and consent was obtained to proceed with surgery. The patient was discharged to home on maximal medical therapy to return as an outpatient for surgery after obtaining dental clearance. HOSPITAL COURSE: The patient was brought to the hospital on 10/30/2018, taken to the preoperative area, prepared in the usual fashion, and subsequently taken to the operating room where Dr. Ferrer performed aortic valve replacement with 21 mm On-X mechanical valve, epi-aortic ultrasonography, and ligation of left atrial appendage with a 35 mm AtriCure clip. Upon completion of surgery the patient was transferred to the cardiovascular intensive care unit where he was recovered, monitored hemodynamically, and where he progressed to cardiac rehabilitation phase 1. He was extubated, all lines, tubes, and drips were discontinued when appropriate, and he was transferred to [facility] cardiac stepdown unit for further monitoring and rehabilitation. His oxygen was titrated down, he continued to work with physical and occupational therapy, he was tolerating oral diet, his pain was controlled, his INR was therapeutic, and he was ready to be discharged to home with [facility] care on postoperative day #5. He received written and verbal instruction regarding his medications, activity restrictions, signs and symptoms requiring physician notification, and follow-up appointments. He is to have a PT/INR drawn on Mondays, Wednesdays, and Fridays with results called to [facility] for Coumadin dosing. Goal INR for the first 3 months is 2.5-3.0, then 1.5-2.0 thereafter for On-X mechanical valves per the FDA. COMPLICATIONS: The patient experienced no postoperative complications. Patient Condition at Discharge: Stable Plan - Discharge Summary Discharge Rx Participant: Yes New Discharge Prescriptions: New Aspirin 81 mg PO DAILY #30 chew Warfarin [Coumadin] 2.5 mg PO DAILY@1800 #30 tab Atorvastatin [Lipitor] 40 mg PO DAILY #30 tab Metoprolol Tartrate [Lopressor] 50 mg PO BID #60 tab guaiFENesin [Mucinex] 600 mg PO Q12HR PRN #14 tablet.er PRN Reason: Cough HYDROcodone/APAP 7.5-325MG [[place] 7.5-325] 1 each PO Q4H PRN #42 tab PRN Reason: Pain Sennosides-Docusate Sodium [Senokot-S] 2 each PO HS #14 tab Acetaminophen Tab [Tylenol] 650 mg PO Q4HR PRN tab PRN Reason: Fever And/ Or Pain Continue Famotidine [Pepcid] 20 mg PO DAILY Melatonin 10 mg PO HS PRN PRN Reason: sleep Discontinued Aspirin 81 mg PO BID Mupirocin 2% Oint [Bactroban 2% Oint] 1 applic NASAL BID Aspirin 324 mg PO ONCE Discharge Medication List Famotidine [Pepcid] 20 mg PO DAILY 10/24/18 [History] Melatonin 10 mg PO HS PRN 10/24/18 [History] Acetaminophen Tab [Tylenol] 650 mg PO Q4HR PRN tab 11/04/18 [Rx] Aspirin 81 mg PO DAILY #30 chew 11/04/18 [Rx] Atorvastatin [Lipitor] 40 mg PO DAILY #30 tab 11/04/18 [Rx] HYDROcodone/APAP 7.5-325MG [[place] 7.5-325] 1 each PO Q4H PRN #42 tab 11/04/18 [Rx] Metoprolol Tartrate [Lopressor] 50 mg PO BID #60 tab 11/04/18 [Rx] Sennosides-Docusate Sodium [Senokot-S] 2 each PO HS #14 tab 11/04/18 [Rx] Warfarin [Coumadin] 2.5 mg PO DAILY@1800 #30 tab 11/04/18 [Rx] guaiFENesin [Mucinex] 600 mg PO Q12HR PRN #14 tablet.er 11/04/18 [Rx] Follow up Appointment(s)/Referral(s): Nadine Queen MD [REFERRING] - 11/22/18 9:40 am Duane Ferrer MD [STAFF PHYSICIAN] - 12/07/18 1:15 pm Nomi Stanton DO [Doctor of Osteopathic Medicine] - 12/01/18 2:15 pm [facility], [NON-STAFF] - Evens Serrano MD [STAFF PHYSICIAN] - 11/21/18 2:45 pm (@ [facility]) Shena Elaine NPC [Nurse Practitioner] - 11/10/18 1:00 pm Ambulatory/Diagnostic Orders: Complete Blood Count w/diff [LAB.AMB] Time Frame: 3 Days, Location: None Selected Comprehensive Metabolic Panel [LAB.AMB] Time Frame: 3 Days, Location: None Selected Prothrombin Time INR [LAB.AMB] Location: None Selected Patient Instructions/Handouts: Aortic Valve Replacement (DC), How to Stop Smoking (DC) Activity/Diet/Wound Care/Special Instructions: DISCHARGE INSTRUCTIONS: 1. No driving for 4 weeks, or until physician gives their ok. 2. The patient should sleep in their own bed, no medical bed needed. 3. Stairs are not an issue. If the bedroom is upstairs, it is advised that the patient go up at night and down in the morning for the first week. Go slowly, using handrail and take 1 step at a time. 4. CORTNEY hose are to be worn for 30 days or until physician discontinues. 5. Heart hugger is to be worn 100% of the time until physician discontinues.(except when showering) 6. No lifting, pushing, or pulling more than 10 pounds for 12 weeks. The physician will advise of any restriction changes. 7. The patient is expected to continue the prescribed walking program. 8. Continue pain control per as needed orders. 9. Continue with incentive spirometry and splinting/heart hugger until otherwise directed by the physician. 10. Must shower daily using liquid antibacterial soap and a separate white washcloth for each individual incision. 11. Routine sternal incision care. No powders, lotions, ointments on incisions. 12. Please call surgeon/EVAPORATOR SUPERVISOR for temp greater than 101 F or purulent drainage from incisions. 13. Narcotic medications were discussed with the patient, including the potential for misuse, addiction, and abuse. Opiod Start Talking form was reviewed with the patient. 14. All prescriptions given by surgeon for 30 days. Refills need to be filled through embossing machine operator helper/primary care physician. 15. A Red armband has been placed on the patient. It should be worn for 30 days post surgery and will be removed by the cardiac surgeons. If an ER visit is necessary, please make sure the number on the Red armband is called. HOME HEALTH SERVICES TO PROVIDE: RN SKILLED HOME CARE SERVICES FOR POST-OP SURGICAL PATIENTS WITH THE FOLLOWING: Coronary Artery Bypass Surgery (CABG), Mitral Valve Replacement/Repair ( MVR), Aortic Valve Replacement/Repair (AVR) RN TO CONTINUE EDUCATION FROM ``ROAD TO A HEALTH HEART PATIENT EDUCATION MANUAL (GIVEN TO PATIENT IN THE HOSPITAL) MEDICATION RECONCILIATION WITH EDUCATION NEEDED ON FIRST HOME VISIT EMPHASIZE IMPORTANCE OF WEARING BREAST SUPPORT/HEART HUGGER ENCOURAGE USE OF INCENTIVE SPIROMETER 10 X EVERY HOUR WHILE AWAKE ENCOURAGE UTILIZATION OF LOWER EXTREMITY COMPRESSION STOCKINGS/CORTNEY HOSE and ELEVATE LEGS ABOVE LEVEL OF HEART WHILE AT REST. ENCOURAGE AMBULATION 3-5x/day INCREASING TOLERATES, WHILE AVOID EXTREMES IN TEMPERATURE FREQUENCY: RN TO OPEN THE PATIENT WITHIN 24 HOURS OF DISCHARGE FROM THE HOSPITAL WITH TELEHEALTH INSTALLED AT [facility], RN TO VISIT 2-3 X A WEEK FOR 4 WEEKS ESTABLISHED BY PATIENT NEEDS. LABORATORY: CBC, CMP TO BE DRAWN ON THE THIRD DAY HOME, (RAN STAT) FAX RESULTS TO [phone]. For patients on Coumadin, PT/INR to be drawn Tuesday, Tuesday, Tuesday, ran as STAT, and results faxed to [facility] at [phone] for Coumadin dosing. Goal INR is 2.5-3.0 for the first 3 months, then 1.5-2.0 thereafter. TELEHEALTH PARAMETERS: WEIGHT: NOTIFY MD OF WEIGHT GAIN OF 2 LBS IN 24 HOURS OR 5 LBS IN ONE WEEK HR: NOTIFY MD OF HR <55 BPM OR HR>100 BPM BP: NOTIFY MD IF BP <90/55 OR BP>140/100 O2 SAT: NOTIFY MD IF PO2<93% ON ROOM AIR SEND TELEHEALTH REPORT TO STEAM AND POWER SUPERVISOR AND CARDIOVASCULAR SURGEON THE FIRST WEEK OF CARE AND THEN BI-WEEKLY. PLEASE ADDITIONALLY COMMUNICATE ANY ABNORMALS AND NEW FINDINGS TO THE SURGEONS OFFICE. Discharge Disposition: HOME WITH HOME HEALTH SERVICES
--- NOTE | 2018-11-04 13:40 | P.PN ---
Subjective Progress Note Date: 11/04/18 Principal diagnosis: The patient is a 53-year-old male with past with a history of severe aortic stenosis bicuspid aortic valve previous STEMI that was admitted and is po stop day #6 status post aortic valve replacement with mechanical valve. Patient feeling good reports cough and some chest wall tenderness, denies any shortness of breath has been up and ambulatory. Working well with incentive spirometry APPROX 2200. Objective - Vital Signs Vital signs: Vital Signs Temp 97.5 F L 11/04/18 08:00 Pulse 70 11/04/18 08:38 Resp 18 11/04/18 08:00 BP 135/50 11/04/18 08:00 Pulse Ox 98 11/04/18 08:27 Intake & Output 11/03/18 11/04/18 11/04/18 18:59 06:59 18:59 Intake Total 430 600 Output Total 250 750 Balance 180 -150 Intake: Oral 430 600 Output: Urine 250 750 Other: Voiding Method Urinal # Voids 3 ABP, PAP, CO, CI - Last Documented Arterial Blood Pressure 137/59 Pulmonary Artery Pressure 23/13 Cardiac Output 6.1 Cardiac Index 2.8 - Exam Constitutional: No acute distress, conversant, pleasant Eyes: Anicteric sclerae, moist conjunctiva, no lid-lag, PERRLA ENMT: NC/AT,Oropharynx clear, no erythema, exudates Neck:Supple, FROM, no masses, or JVD, No carotid bruits; No thyromegaly Lungs: Clear to auscultation, Clear to percussion, Normal respiratory effort, no accessory muscle use Cardiovascular: Heart hugger in place, Heart regular in rate and rhythm, No murmurs, gallops, or rubs no peripheral edema, positive valvular click Abdominal: Soft Nontender, nom distended, no guarding, no rebound or rigidity, Normoactive bowel sounds No hepatomegaly, No splenomegaly, No palpable mass No abdominal wall hernia noted Skin: Normal temperature, tone, texture, turgor, No induration No subcutaneous nodules, No rash, lesions, No ulcers Extremities:No digital cyanosis No clubbing, Pedal pulses intact and symmetrical Radial pulses intact and symmetrical Normal gait and station, No calf tenderness Psychiatric: Alert and oriented to person, place and time, Appropriate affect Intact judgement Neuro: Muscles Strength 5/5 in all 4 extremities, Sensation to light touch grossly present throughout, Cranial nerves II-XII grossly intact. No focal sensory deficits - Labs CBC & Chem 7: 11/04/18 06:30 11/04/18 06:30 Labs: Abnormal Lab Results - Last 24 Hours (Table) 11/03/18 11/03/18 11/04/18 Range/Units 11:36 20:38 01:20 RBC (4.30-5.90) m/uL Hgb (13.0-17.5) gm/dL Hct (39.0-53.0) % PT (9.0-12.0) sec INR (<1.2) BUN (9-20) mg/dL POC Glucose (mg/dL) 109 H 101 H 106 H (75-99) mg/dL 11/04/18 11/04/18 11/04/18 Range/Units 06:30 06:30 06:30 RBC 3.01 L (4.30-5.90) m/uL Hgb 9.5 L (13.0-17.5) gm/dL Hct 28.8 L (39.0-53.0) % PT 32.5 H (9.0-12.0) sec INR 3.4 H (<1.2) BUN 22 H (9-20) mg/dL POC Glucose (mg/dL) (75-99) mg/dL Assessment and Plan (1) Status post mechanical aortic valve replacement Narrative/Plan: * Continue low-dose aspirin statin beta kimberly therapy * Continue Coumadin dosing INR goal 2.5-3 in the first 3 months then 1.5 - 2.0 thereafter * Continue IS use Current Visit: Yes Status: Acute Code(s): Z95.2 - PRESENCE OF PROSTHETIC HEART VALVE SNOMED Code(s): 201376487775033 (2) Severe aortic stenosis Current Visit: No Status: Acute Code(s): I35.0 - NONRHEUMATIC AORTIC (VALVE) STENOSIS SNOMED Code(s): 07503355 (3) Paroxysmal A-fib Narrative/Plan: * Currently in sinus Current Visit: No Status: Resolved Code(s): I48.0 - PAROXYSMAL ATRIAL FIBRILLATION SNOMED Code(s): 472410305 (4) S/P left atrial appendage ligation Current Visit: Yes Status: Acute Code(s): Z98.890 - OTHER SPECIFIED POSTPROCEDURAL STATES SNOMED Code(s): 029625756 Plan: Disposition * Patient stable for discharge and will follow-up with cardiology
[2018-11-04] MEDS ORDERED: WARFARIN 7.5 MG TAB PO SCH (18:00)
[2018-11-04] MEDS ORDERED: WARFARIN 2.5 MG TAB PO SCH (18:00)
--- NOTE | 2018-11-04 19:26 | PN ---
PROGRESS NOTE Mr. Merida underwent aortic valve replacement with a mechanical valve for a bicuspid aortic valve. He is resting comfortably, doing well. INR is 3.4, and he will possibly be discharged today. Vital signs stable. S1-S2 heard normally. Ejection systolic murmur noted. Lungs are clear. Abdomen and lower extremity exam unchanged. Plan is to continue current medications, incentive spirometry and possibly plan for discharge soon and follow up with Dr. Krishan Serrano. LAWSON / MOEN: [phone] /
== END 2018-11-04 13:41 | disposition home health service (06) | DRG 220 ==
LOC: 2ORMAIN 05:32 → 2SICU 11:33 → 3SCARD 11-02 08:22
PROVIDERS: ADMIT Thoracic Surgery (Cardiothoracic Vascular Surgery); ATTEND Thoracic Surgery (Cardiothoracic Vascular Surgery)
PROC: 02L70CK Occlusion of Left Atrial Appendage with Extraluminal Device, Open Approach (ICD-10-PCS; 2018-10-30)
PROC: 5A1221Z Performance of Cardiac Output, Continuous (ICD-10-PCS; 2018-10-30)
PROC: B24BZZ4 Ultrasonography of Heart with Aorta, Transesophageal (ICD-10-PCS; 2018-10-30)
PROC: 02RF0JZ Replacement of Aortic Valve with Synthetic Substitute, Open Approach (ICD-10-PCS; principal; 2018-10-30 08:00)
DX: I35.2 Nonrheumatic aortic (valve) stenosis with insufficiency (principal); D62 Acute posthemorrhagic anemia; J98.11 Atelectasis; J90 Pleural effusion, not elsewhere classified; I48.0 Paroxysmal atrial fibrillation; I34.0 Nonrheumatic mitral (valve) insufficiency; D72.829 Elevated white blood cell count, unspecified; F17.210 Nicotine dependence, cigarettes, uncomplicated; F41.9 Anxiety disorder, unspecified; G89.29 Other chronic pain; I25.2 Old myocardial infarction; M54.2 Cervicalgia; M54.9 Dorsalgia, unspecified; R73.9 Hyperglycemia, unspecified; K21.9 Gastro-esophageal reflux disease without esophagitis; I51.7 Cardiomegaly; G89.18 Other acute postprocedural pain; Z79.82 Long term (current) use of aspirin; Z79.899 Other long term (current) drug therapy; Z82.49 Family history of ischemic heart disease and other diseases of the circulatory system; Z82.5 Family history of asthma and other chronic lower respiratory diseases
CPT/HCPCS: 71045; 71046; 80048; 80053; 82330; 82805; 83735; 85025; 85027; 85520; 85610; 85730; 86850; 86891; 86900; 86901; 86920; 88305; 88311; 94002; 94640

== ENCOUNTER 2019-08-24 12:11 | Emergency (ER) | payer SELFPAY ==
[2019-08-24 12:29] VITALS: BP 138/89; PULSE 81; RESP 18; TEMP 99
--- NOTE | 2019-08-24 14:19 | ED ---
Recheck HPI - General Chief Complaint: Recheck/Abnormal Lab/Rx Stated Complaint: med refill-coumadin Time Seen by Provider: 08/24/19 12:45 Source: patient, RN notes reviewed, old records reviewed Mode of arrival: ambulatory Limitations: no limitations - History of Present Illness Initial Comments: Patient is a 54 year old male, requesting refill of coumadin. PAtient reports he has not had his INR check in 2 months. Patient reports he last had his coumadin yesterday, he will be out today. Patient reports he has aortic valve replacement. Patient reports that he cannot see his PCP anymore fur further treatment after receiving a certified letter that he was fired as a patient. He denies any symptoms of chest pain or other complaints at si time. . - Related Data Home Medications Medication Instructions Recorded Confirmed Famotidine [Pepcid] 20 mg PO DAILY 10/24/18 10/30/18 Melatonin 10 mg PO HS PRN 10/24/18 10/30/18 Previous Rx's Medication Instructions Recorded Acetaminophen Tab [Tylenol] 650 mg PO Q4HR PRN tab 11/04/18 Aspirin 81 mg PO DAILY #30 chew 11/04/18 Atorvastatin [Lipitor] 40 mg PO DAILY #30 tab 11/04/18 HYDROcodone/APAP 7.5-325MG [[place] 1 each PO Q4H PRN #42 tab 11/04/18 7.5-325] Metoprolol Tartrate [Lopressor] 50 mg PO BID #60 tab 11/04/18 Sennosides-Docusate Sodium 2 each PO HS #14 tab 11/04/18 [Senokot-S] Warfarin [Coumadin] 2.5 mg PO DAILY@1800 #30 tab 11/04/18 guaiFENesin [Mucinex] 600 mg PO Q12HR PRN #14 tablet.er 11/04/18 Warfarin [Coumadin] 5 mg PO DAILY #30 tab 08/24/19 Allergies Allergy/AdvReac Type Severity Reaction Status Date / Time No Known Allergies Allergy Verified 08/24/19 12:24 Review of Systems ROS Statement: Those systems with pertinent positive or pertinent negative responses have been documented in the HPI. ROS Other: All systems not noted in ROS Statement are negative. Past Medical History Additional Past Medical History / Comment(s): chronic back and neck pain, artifical aortic valve History of Any Multi-Drug Resistant Organisms: None Reported Past Surgical History: No Surgical Hx Reported Additional Past Surgical History / Comment(s): cosmetic surg, valve replacement Past Anesthesia/Blood Transfusion Reactions: No Reported Reaction Past Psychological History: No Psychological Hx Reported Smoking Status: Never smoker Past Alcohol Use History: None Reported Past Drug Use History: None Reported - Past Family History Father Family Medical History: Congestive Heart Failure (CHF) Additional Family Medical History / Comment(s): HF FATHER STILL ALIVE Mother Family Medical History: COPD General Exam - General Exam Comments Initial Comments: 54 year old male, Agitated attitude. Limitations: no limitations General appearance: alert, in no apparent distress Head exam: Present: atraumatic, normocephalic, normal inspection Eye exam: Present: normal appearance, PERRL, EOMI. Absent: scleral icterus, conjunctival injection, periorbital swelling ENT exam: Present: normal exam, mucous membranes moist Respiratory exam: Present: normal lung sounds bilaterally. Absent: respiratory distress, wheezes, rales, rhonchi, stridor Cardiovascular Exam: Present: regular rate, normal rhythm, normal heart sounds. Absent: systolic murmur, diastolic murmur, rubs, gallop, clicks GI/Abdominal exam: Present: soft, normal bowel sounds. Absent: distended, tenderness, guarding, rebound, rigid Back exam: Present: normal inspection Neurological exam: Present: alert, oriented X3, CN II-XII intact Psychiatric exam: Present: agitated (agitated and manipulative conversation) Course Vital Signs 08/24/19 08/24/19 12:24 12:53 Temperature 99 F Pulse Rate 81 Respiratory 18 18 Rate Blood Pressure 138/89 O2 Sat by Pulse 95 Oximetry Medical Decision Making - Medical Decision Making 54 year old male with CC of med refill. Discussed he needs refill of coumadin, but has not had INR check in 2 months. Disucssed before refill, I want to check INR. He was resistant to this, and discussed if it was not checked no refills. He eventually agreed and INR checked at 1.4. Discussed double dose of coumadin tomorrow and to resume afterward. Discussed return parameters. - Lab Data Lab Results 08/24/19 Range/Units 13:50 PT 14.3 H (9.0-12.0) sec INR 1.4 H (<1.2) Disposition Clinical Impression: Medication refill, Subtherapeutic international normalized ratio (INR) Disposition: HOME SELF-CARE Condition: Good Instructions (If sedation given, give patient instructions): Medicine Refill (ED) Additional Instructions: Patient advised to resume coumadin and follow-up with a primary care physicians. Take medication as prescribed. Also clinically following up with your cardiac thoracic surgeon if he needed further prescriptions for warfarin. Prescriptions: Warfarin [Coumadin] 5 mg PO DAILY #30 tab Is patient prescribed a controlled substance at d/c from ED?: No Referrals: None,Stated [Primary Care Provider] - 1-2 days Pj Chung MD [STAFF PHYSICIAN] - 1-2 days Time of Disposition: 14:29
[2019-08-24 14:21] LABS: INR 1.4 (<1.2); Prothrombin Time 14.3 sec (9.0-12.0)
== END 2019-08-24 14:49 | disposition home or self-care (01) ==
LOC: EC 12:11
DX: Z76.0 Encounter for issue of repeat prescription (principal); R79.1 Abnormal coagulation profile; R45.1 Restlessness and agitation; Z95.2 Presence of prosthetic heart valve; Z82.49 Family history of ischemic heart disease and other diseases of the circulatory system
CPT/HCPCS: 36415; 85610; 99283

== ENCOUNTER 2020-06-22 19:13 | Observation (INO) | payer OTHER ==
[2020-06-22] MEDS ORDERED: ASPIRIN 81 MG PO STA (19:21)
--- NOTE | 2020-06-22 19:31 | ED ---
Chest Pain HPI - General Chief Complaint: Chest Pain Stated Complaint: Chest Pain Time Seen by Provider: 06/22/20 19:21 Source: patient Mode of arrival: ambulatory Limitations: no limitations - History of Present Illness Initial Comments: 54-year-old male with history of prosthetic aortic valve replacement on coumadin with last INR 2.3 (congenital bicuspid aortic valve), this surgery was done by Dr. Ferrer at this facility, he denies hx of CAD, HTN, HLD he is a previous smoker. Patient presents today ambulating to room #16 for cc of chest pressure on and off x 1 week. patient states that he has had chest pressure on and off x 1 week, he feels it increases at night. He states it is somewhat present on arrival but not as bad as it has been. Patient denies nausea, jaw pain, vomiting, indigestion. Denies ripping tearing pain or back pain. Denies hx of aneursym. Patient states that he has had some parathesias of the arms on and off this week. Not currently present. Patient states that the pain seems better with ambulation. He denies difficulty lying flat, shortness of breath, fevers, URI symptoms such as cough, denies leg swelling. Patient on arrival appears nontoxic in no acute distress. He is pleasant and levign sign is absent. - Related Data Home Medications Medication Instructions Recorded Confirmed Famotidine [Pepcid] 20 mg PO DAILY 10/24/18 10/30/18 Melatonin 10 mg PO HS PRN 10/24/18 10/30/18 Previous Rx's Medication Instructions Recorded Acetaminophen Tab [Tylenol] 650 mg PO Q4HR PRN tab 11/04/18 Aspirin 81 mg PO DAILY #30 chew 11/04/18 Atorvastatin [Lipitor] 40 mg PO DAILY #30 tab 11/04/18 HYDROcodone/APAP 7.5-325MG [[place] 1 each PO Q4H PRN #42 tab 11/04/18 7.5-325] Metoprolol Tartrate [Lopressor] 50 mg PO BID #60 tab 11/04/18 Sennosides-Docusate Sodium 2 each PO HS #14 tab 11/04/18 [Senokot-S] Warfarin [Coumadin] 2.5 mg PO DAILY@1800 #30 tab 11/04/18 guaiFENesin [Mucinex] 600 mg PO Q12HR PRN #14 tablet.er 11/04/18 Warfarin [Coumadin] 5 mg PO DAILY #30 tab 08/24/19 Allergies Allergy/AdvReac Type Severity Reaction Status Date / Time No Known Allergies Allergy Verified 06/22/20 19:20 Review of Systems ROS Statement: Those systems with pertinent positive or pertinent negative responses have been documented in the HPI. ROS Other: All systems not noted in ROS Statement are negative. EKG Findings - EKG Comments: EKG Findings:: Ventricular rate 61 bpm, MT interval 174 ms, QRS ration 80 ms, QT/QTC 406/408 ms. This is normal sinus there is no ST elevation or depression appreciated. EKG was personally interpreted as well as reviewed by my attending provider Dr. Hammond Past Medical History Additional Past Medical History / Comment(s): chronic back and neck pain, artifical aortic valve, History of Any Multi-Drug Resistant Organisms: None Reported Past Surgical History: No Surgical Hx Reported Additional Past Surgical History / Comment(s): cosmetic surg, aortic valve replacement Past Anesthesia/Blood Transfusion Reactions: No Reported Reaction Past Psychological History: No Psychological Hx Reported Smoking Status: Former smoker Past Alcohol Use History: None Reported Past Drug Use History: None Reported - Past Family History Father Family Medical History: Congestive Heart Failure (CHF) Additional Family Medical History / Comment(s): HF FATHER STILL ALIVE Mother Family Medical History: COPD General Exam - General Exam Comments Initial Comments: General: The patient is awake and alert, in no distress, and does not appear acutely ill. Eye: Pupils are equal, round and reactive to light, extra-ocular movements are intact. No nystagmus. There is normal conjunctiva bilaterally. No signs of icterus. Ears, nose, mouth and throat: There are moist mucous membranes and no oral lesions. Neck: The neck is supple, there is no tenderness or JVD. Cardiovascular: There is a regular rate and rhythm. Faint murmur, no rub or gallop is appreciated. Respiratory: Lungs are clear to auscultation, respirations are non-labored, breath sounds are equal. No wheezes, stridor, rales, or rhonchi. Gastrointestinal: Soft, non-distended, non-tender abdomen without masses or organomegaly noted. There is no rebound or guarding present. Musculoskeletal: Normal ROM, no tenderness. Strength 5/5. Sensation intact. Radial pulses equal bilaterally 2+. Neurological: A&O x 3. CN II-XII intact grossly, There are no obvious motor or sensory deficits. Coordination appears grossly intact. Speech is normal. Skin: Skin is warm and dry and no rashes or lesions are noted. No LE edema Psychiatric: Cooperative, appropriate mood & affect, normal judgment. Limitations: no limitations Course Vital Signs 06/22/20 06/22/20 19:15 20:50 Temperature 97.6 F Pulse Rate 60 Respiratory 18 Rate Blood Pressure 133/82 130/74 O2 Sat by Pulse 100 Oximetry Chest Pain MDM - MDM Labs stable. Initial trop (-). Patient CXR clear. No distress. Coumadin therapeutic. ASA given. Nitro on back. Patient admits to some relief. Will admit for serial troponins. Patient has prosthetic valve, routine echo ordered. no overt signs clinically concerning for heart failure. Patient agreeable to admission as is attending Dr. Castro Disposition Clinical Impression: Chest pain Disposition: ADMITTED IP TO THIS HOSP Condition: Stable Is patient prescribed a controlled substance at d/c from ED?: No Time of Disposition: 20:49 Decision to Admit Reason: Admit from EC Decision Date: 06/22/20 Decision Time: 20:49
[2020-06-22 19:48] LABS: Basophils # (A) 0.3 k/uL (0-0.2); Basophils % (A) 3 %; Eosinophils # (A) 0.5 k/uL (0-0.7); Eosinophils % (A) 5 %; HCT 53.3 % (39.0-53.0); HGB 17.8 gm/dL (13.0-17.5); Lymphocytes # (A) 2.7 k/uL (1.0-4.8); Lymphocytes % (A) 27 %; MCH 32.3 pg (25.0-35.0); MCHC 33.5 g/dL (31.0-37.0); MCV 96.6 fL (80.0-100.0); Mean Platelet Volume 7.4; Monocytes # (A) 0.8 k/uL (0-1.0); Monocytes % (A) 8 %; Neutrophils # (A) 5.5 k/uL (1.3-7.7); Neutrophils % (A) 56 %; Platelet Count 255 k/uL (150-450); RBC 5.52 m/uL (4.30-5.90); RDW 12.3 % (11.5-15.5); WBC 9.9 k/uL (3.8-10.6)
[2020-06-22 19:58] LABS: ALT 23 U/L (4-49); AST 32 U/L (17-59); African American GFR (CKD) >90 (>60 ml/min/1.73 sqM); Albumin 4.6 g/dL (3.5-5.0); Alkaline Phosphatase 122 U/L (38-126); Anion Gap 7 mmol/L; Blood Urea Nitrogen 20 mg/dL (9-20); Calcium 9.4 mg/dL (8.4-10.2); Carbon Dioxide 30 mmol/L (22-30); Chloride 100 mmol/L (98-107); Glucose 83 mg/dL (74-99); Lipase 25 U/L (23-300); Magnesium 1.6 mg/dL (1.6-2.3); Non-African American GFR(CKD) 83 (>60 ml/min/1.73 sqM); Potassium 4.4 mmol/L (3.5-5.1); Sodium 137 mmol/L (137-145); Total Bilirubin 0.5 mg/dL (0.2-1.3); Total Protein 8.1 g/dL (6.3-8.2)
[2020-06-22 19:59] LABS: INR 3.5 (<1.2); Partial Thromboplastin Time 40.9 sec (22.0-30.0); Prothrombin Time 34.7 sec (9.0-12.0)
[2020-06-22] MEDS ORDERED: MORPHINE SULFATE 2 MG/ML SYRINGE IVP PRN (20:23)
[2020-06-22] MEDS: NITROGLYCERIN OINT 1 INCH/GM PACKET TOPICAL STA ×2 (20:24→20:49)
--- NOTE | 2020-06-22 20:36 | XR ---
EXAMINATION TYPE: XR chest 2V DATE OF EXAM: 06/22/2020 COMPARISON: Chest x-ray November 03, 2018. HISTORY: History of aortic valve placement last year with chest pain and pressure. TECHNIQUE: Frontal and lateral views of the chest are obtained. FINDINGS: Overlying sternal wires along with atrial appendage clip and atrial septal closure device a re redemonstrated. There is chronic parenchymal change without suspicious new focal air space opacit y, pleural effusion, or pneumothorax seen. The cardiac silhouette size remains within normal limits. The osseous structures are intact. IMPRESSION: Chronic changes without acute pulmonary process.
[2020-06-22] MEDS ORDERED: NITROGLYCERIN SL TABS 0.4 MG TAB SUBLINGUAL PRN (20:46)
[2020-06-23 05:34] LABS: Cholesterol 194 mg/dL (<200); HDL Cholesterol 35 mg/dL (40-60); LDL Cholesterol,Calculated 123 mg/dL (0-99); Triglycerides 178 mg/dL (<150)
[2020-06-23 07:35] VITALS: BP 115/65; PULSE 64; RESP 14; TEMP 98.3
[2020-06-23 08:20] LABS: INR 3.5 (<1.2); Prothrombin Time 34.8 sec (9.0-12.0)
[2020-06-23] MEDS ORDERED: METOPROLOL TARTRATE 50 MG TAB PO SCH (09:00)
[2020-06-23] MEDS ORDERED: ASPIRIN 325 MG TAB PO SCH (09:00)
--- NOTE | 2020-06-23 09:38 | CONS ---
CONSULTATION Roderick Merida is a 54-year-old gentleman with a bicuspid aortic valve with severe aortic stenosis, who underwent an aortic valve replacement with a mechanical valve that was performed in October of 2018. He has seen Dr. VC Serrano in the past. He is on Coumadin with INR in the range of 3.5. He came to the hospital with episode of chest discomfort. The quality of the pain is very atypical. It happened while he was watching TV. He noted that the pain was on and off lasting about 10-15 seconds, more like an ache. The quality of the pain did not seem very suggestive of angina. The blood pressure was normal. He has does not have any dilatation of ascending aorta. After he arrived, the pain has resolved. He has no further symptoms. The troponin levels are normal. EKG revealed sinus bradycardia without acute changes. He is resting comfortably without symptoms. He has not had any palpitations through the night, although he complained of some when he came in. He has sinus bradycardia, heart rate is about 58 - 62 beats per minute. PAST MEDICAL HISTORY: 1. Bicuspid aortic valve, status post aortic valve replacement that was performed in October 2018 with a mechanical valve. 2. Hypertension. 3. No evidence of any obstructive CAD. 4. No evidence of any ascending aortic dilatation. MEDICATIONS: At home include metoprolol tartrate 50 mg b.i.d., Coumadin 10 and 7.5 mg alternating. LABORATORY DATA: Reveals that are unremarkable troponins and INR was 3.5. PHYSICAL EXAMINATION: On examination, blood pressure is 110/70, pulse rate is about 56 per minute, irregular. HEENT: Unremarkable. Fundus was not examined by me. Neck is supple. There is no JVD. I do not hear a carotid bruit. Heart exam reveals prosthetic valve clicks, which are crisp, short systolic murmur. Lungs are clear. Abdomen is soft, nontender. Lower extremities reveal normal pulses. No edema. Central nervous system is normal. EKG revealed sinus bradycardia, no acute changes. IMPRESSION: 1. Atypical pain in a patient with normal coronaries and aortic valve replacement with a mechanical valve performed in October 2018. 2. Probably hypertension. RECOMMENDATION: I am recommending that we decrease the metoprolol to 50 mg daily instead of b.i.d. Heart rates have been in the mid-to-high 40s when he was asleep. He will take metoprolol 50 mg in the morning only. Continue Coumadin. We will check a PT, INR today and discontinue the aspirin. We will also discontinue nitroglycerin paste, increase activity, and if he has no further symptoms, he may be discharged and will see Dr. High in the office in about 1 week. I discussed my thoughts and explained that his symptoms were atypical to the patient. He understands and will follow through as advised. Thank you very much for the consult. LAWSON / ANTIONE: [id number] /
--- NOTE | 2020-06-23 11:13 | P.HPIM ---
History of Present Illness H&P Date: 06/23/20 HISTORY AND PHYSICAL AND DISCHARGE SUMMARY: HISTORY OF PRESENT ILLNESS This is a 54-year-old male patient of Dr. Goldberg and Dr. VC Serrano with past medical history of severe aortic stenosis and bicuspid aortic valve status post aortic valve replacement in October 2018 on chronic Coumadin by Dr. Ferrer, history of non-ST elevated myocardial infarction, episode of paroxysmal atrial fibrillation following open heart surgery, remote history of tobacco use and dependence. Patient gives history of having a fluttering sensation in his chest that have been going on for one week. He also had complained of some chest pain to the emergency center. Patient denies at the time of evaluation any chest pain, shortness of breath. No nausea. No cold sweats. No fever or chills. No cough or sputum production. Patient came into the emergency center for evaluation. Heart rate 57, blood pressure 116/69. Hemoglobin 17.8, CBC otherwise unremarkable. INR 3.5. Electrolytes renal function and liver function tests all normal. Troponin negative on 3 draws. Triglycerides 170, cholesterol 194, LDL 123, HDL 35. EKG was a sinus bradycardia with no acute ST changes. Chest x-ray showed no acute findings. Patient has been seen by cardiology with recommendations to adjust metoprolol to once daily and clarified dosing of Coumadin for tonight and moving forward. Patient to follow-up with Dr. High in the office. Patient will be discharged home today in stable condition. REVIEW OF SYSTEMS At the time of my evaluation: Constitutional: No fever, no chills, no night sweats. No weight change. No weakness, fatigue or lethargy. No daytime sleepiness. EENT: No headache. No blurred vision or double vision, no loss of vision. No loss of Hearing, no ringing in the ears, no dizziness. No nasal drainage or c ongestion. No epistaxis. No sore throat. Lungs: No shortness of breath, cough, no sputum production. No wheezing. Cardiovascular: No chest pain, no lower extremity edema. No palpitations. No paroxysmal nocturnal dyspnea. No orthopnea. No lightheadedness or dizziness. No syncopal episodes. Abdominal: No abdominal pain. No nausea, vomiting. No diarrhea. No constipation. No bloody or tarry stools.. No loss of appetite. Genitourinary: No dysuria, increased frequency, urgency. No urinary retention. Musculoskeletal: No myalgias. No muscle weakness, no gait dysfunction, no frequent falls. No back pain. No neck pain. Integumentary: No wounds, no lesions. No rash or pruritus. No unusual bruising. No change in hair or nails. Neurologic: No aphasia. No facial droop. No change in mentation. No head injury. No headache. No paralysis. No paresthesia. Psychiatric: No depression. No anxiety. No mood swings. Endocrine: No abnormal blood sugars. No weight change. No excessive sweating or thirst. No cold intolerance. SOCIAL HISTORY The patient was a smoker of a half a pack per day for 20 years and quit 8 months ago. He denies any alcohol use, marijuana use or street drug use. He does not have a nebulizer or CPAP at home. 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 He lives at home with his girlfriend. FAMILY HISTORY Mother at age 83 from emphysema. Father is alive at age 94 with heart failure. Patient has 6 siblings and all are healthy except for one sister has passed from COPD. He has 2 children living in [place] with no major medical problems. PHYSICAL EXAMINATION Gen: This is a 54-year-old male. He is resting in bed appears to be comfortable and in no acute distress. HEENT: Head is atraumatic, normocephalic. Pupils equal, round. Sclerae is anicteric. NECK: Supple. No JVD. No lymphadenopathy. No thyromegaly. LUNGS: Clear to auscultation. No wheezes or rhonchi. No intercostal retractions. HEART: Regular rate and rhythm. Systolic murmur. Prosthetic valve click. ABDOMEN: Soft. Bowel sounds are present. No masses. No tenderness. EXTREMITIES: No pedal edema. No calf tenderness. Dorsalis pedis palpable bilaterally. NEUROLOGICAL: Patient is awake, alert and oriented x3. Cranial nerves 2 through 12 are grossly intact. ASSESSMENT AND PLAN 1. Fluttering sensation. Metoprolol adjusted. 2. Chest pain has resolved. Acute coronary syndrome ruled out. 3. History of severe aortic stenosis and bicuspid aortic valve status post a ortic valve replacement, stable. 4. History of non-ST elevated myocardial infarction. 5. Remote history of tobacco use and dependence. Patient placed as an observation status. Discharge plan: Home. Discharge Medication List Metoprolol Succinate (ER) [Toprol XL] 50 mg PO HS #30 tab 06/23/20 [Rx] Warfarin Sodium [Jantoven] 7.5 mg PO Q48H #0 06/23/20 [Rx] Warfarin [Coumadin] 2.5 mg PO ONCE@1800 tab 06/23/20 [Rx] Impression and plan of care have been directed as dictated by the signing physician. Sera Hebert nurse practitioner acting as scribe for signing physi kaylin. Past Medical History Additional Past Medical History / Comment(s): chronic back and neck pain, artifical aortic valve, History of Any Multi-Drug Resistant Organisms: None Reported Past Surgical History: No Surgical Hx Reported Additional Past Surgical History / Comment(s): cosmetic ear surg, aortic valve replacement Past Anesthesia/Blood Transfusion Reactions: No Reported Reaction Past Psychological History: No Psychological Hx Reported Smoking Status: Former smoker Past Alcohol Use History: None Reported Past Drug Use History: None Reported - Past Family History Father Family Medical History: Congestive Heart Failure (CHF) Additional Family Medical History / Comment(s): HF FATHER STILL ALIVE Mother Family Medical History: COPD Medications and Allergies Home Medications Medication Instructions Recorded Confirmed Type Metoprolol Succinate (ER) [Toprol 50 mg PO HS #30 tab 06/23/20 Rx XL] Warfarin Sodium [Jantoven] 7.5 mg PO Q48H #0 06/23/20 06/22/20 Rx Warfarin [Coumadin] 2.5 mg PO ONCE@1800 tab 06/23/20 Rx Allergies Allergy/AdvReac Type Severity Reaction Status Date / Time No Known Allergies Allergy Verified 06/22/20 21:39 Physical Exam Vitals: Vital Signs Temp Pulse Pulse Resp BP BP Pulse Ox 06/23/20 07:33 98.3 F 64 14 115/65 94 L 06/23/20 03:00 98.2 F 59 L 18 97/58 94 L 06/22/20 21:34 120/77 06/22/20 21:21 97.7 F 57 L 18 116/69 95 06/22/20 20:50 130/74 06/22/20 19:15 97.6 F 60 18 133/82 100 Intake and Output 06/22/20 06/23/20 06/23/20 22:59 06:59 14:59 Other: Voiding Method Toilet # Voids 1 1 Weight 63.503 kg Results CBC & Chem 7: 06/22/20 19:21 06/22/20 19:21 Labs: Abnormal Lab Results - Last 24 Hours (Table) 06/22/20 06/22/20 06/23/20 Range/Units 19:21 19:21 02:44 Hgb 17.8 H (13.0-17.5) gm/dL Hct 53.3 H (39.0-53.0) % Basophils # 0.3 H (0-0.2) k/uL PT 34.7 H (9.0-12.0) sec INR 3.5 H (<1.2) APTT 40.9 H (22.0-30.0) sec Triglycerides 178 H (<150) mg/dL LDL Cholesterol, Calc 123 H (0-99) mg/dL HDL Cholesterol 35 L (40-60) mg/dL 06/23/20 Range/Units 07:22 Hgb (13.0-17.5) gm/dL Hct (39.0-53.0) % Basophils # (0-0.2) k/uL PT 34.8 H (9.0-12.0) sec INR 3.5 H (<1.2) APTT (22.0-30.0) sec Triglycerides (<150) mg/dL LDL Cholesterol, Calc (0-99) mg/dL HDL Cholesterol (40-60) mg/dL Thrombosis Risk Factor Assmnt - Choose All That Apply Any of the Below Risk Factors Present?: Yes Each Factor Represents 1 point: Age 41-60 years Other Risk Factors: No Other congenital or acquired thrombophilia - If yes, enter type in comment: No Thrombosis Risk Factor Assessment Total Risk Factor Score: 1 Thrombosis Risk Factor Assessment Level: Low Risk
--- NOTE | 2020-06-23 12:17 | ECHOF ---
Referral Reason:chest pain/aortic valve replacement--2018 MEASUREMENTS -------- HEIGHT: 165.1 cm WEIGHT: 63.5 kg BP: 97/58 RVIDd: 2.7 cm (< 3.3) IVSd: 1.2 cm (0.6 - 1.1) LVIDd: 3.6 cm (3.9 - 5.3) LVPWd: 1.2 cm (0.6 - 1.1) IVSs: 1.3 cm LVIDs: 2.6 cm LVPWs: 1.6 cm LA Diam: 4.0 cm (2.7 - 3.8) LAESV Index (A-L): 26.48 ml/m MV EXCURSION: 18.048 mm (> 18.000) MV EF SLOPE: 18 mm/s (70 - 150) EPSS: 1.9 cm MV E Franco: 0.37 m/s MV DecT: 221 ms MV A Franco: 0.42 m/s MV E/A Ratio: 0.90 AV maxP.30 mmHg AV meanP.42 mmHg RAP: 5.00 mmHg RVSP: 25.82 mmHg FINDINGS -------- Sinus rhythm. This was a technically good study. LV size, wall thickness and systolic function are normal, with an EF greater than 55%. The left ludy tricular size is normal. The right ventricle is normal in size. The left atrial size is normal. Normal LA size by volume 22+/-6 ml/m2. The right atrial size is normal. Peak/mean gradient across the Aortic Valve is 11.30mmHg / 5.42mmHg. There is mild bhargav-prosthetic r egurgitation of the Mechanical prosthetic aortic valve. Mild mitral regurgitation is present. Mild tricuspid regurgitation present. Right ventricular systolic pressure is normal at < 35 mmHg. There is no pulmonic regurgitation present. The aortic root size is normal. There is no pericardial effusion. CONCLUSIONS -------- 1. LV size, wall thickness and systolic function are normal, with an EF greater than 55%. 2. The left ventricular size is normal. 3. The right ventricle is normal in size. 4. The left atrial size is normal. 5. Normal LA size by volume 22+/-6 ml/m2. 6. The right atrial size is normal. 7. Peak/mean gradient across the Aortic Valve is 11.30mmHg / 5.42mmHg. 8. There is mild bhargav-prosthetic regurgitation of the Mechanical prosthetic aortic valve. 9. Mild mitral regurgitation is present. 10. Mild tricuspid regurgitation present. 11. The aortic root size is normal. 12. There is no pericardial effusion. CASINO CAGE SUPERVISOR: Rubia Mondragon RDCS
[2020-06-23] MEDS ORDERED: WARFARIN 2.5 MG TAB PO ONE (18:00)
== END 2020-06-23 10:54 | disposition home or self-care (01) ==
LOC: EC 19:13 → 1SOBS 20:47
PROVIDERS: ADMIT Family Medicine; ATTEND Family Medicine
DX: R07.89 Other chest pain (principal); R20.2 Paresthesia of skin; R00.1 Bradycardia, unspecified; I10 Essential (primary) hypertension; I25.2 Old myocardial infarction; Q23.1 Congenital insufficiency of aortic valve; G89.29 Other chronic pain; M54.2 Cervicalgia; M54.9 Dorsalgia, unspecified; Z95.2 Presence of prosthetic heart valve; Z79.01 Long term (current) use of anticoagulants; Z87.891 Personal history of nicotine dependence; Z79.899 Other long term (current) drug therapy; Z82.49 Family history of ischemic heart disease and other diseases of the circulatory system; Z82.5 Family history of asthma and other chronic lower respiratory diseases
CPT/HCPCS: 93005 ×2; 96374; 99285; 36415; 93306; 83880; 80061; 80053; 83690; 83735; 84484 ×2; 85025; 85610 ×2; 85730; 71046; G0378 ×2; J2270